=== PATIENT | female | born 1945 | race Caucasian/White ===

== ENCOUNTER 2017-11-13 16:21 | Emergency (ER) | payer MEDICARE, OTHER ==
[~2017-11-13] VITALS: Ht 165.1 cm; Wt 73.9 kg
[~2017-11-13 16:21] MED LIST: BIOTIN2500 MCG PO; CALCIUM 600 +1 EACH PO; IBUPROFEN800 MG PO; KEFLEX500 MG PO; LUTEIN20 MG PO; VITAMIN C500 M1 PO; VITAMIN D5000 UNIT PO
== END 2017-11-13 17:38 | disposition home or self-care (01) ==
LOC: ED 16:21
DX: S22.32XA Fracture of one rib, left side, initial encounter for closed fracture (principal); I10 Essential (primary) hypertension; Z88.1 Allergy status to other antibiotic agents; Z88.7 Allergy status to serum and vaccine; Z88.8 Allergy status to other drugs, medicaments and biological substances; W17.89XA Other fall from one level to another, initial encounter
CPT/HCPCS: 71046; 99283

== ENCOUNTER 2019-11-23 09:59 | Emergency (ER) | payer MEDICARE, OTHER ==
[~2019-11-23] VITALS: Ht 165.1 cm; Wt 73.9 kg
[2019-11-23] MEDS ORDERED: NORCO 5-325 TA1 EACH PO (14:26)
== END 2019-11-23 15:00 | disposition home or self-care (01) ==
LOC: ED 09:59
DX: S63.502A Unspecified sprain of left wrist, initial encounter (principal); S00.81XA Abrasion of other part of head, initial encounter; M25.461 Effusion, right knee; I10 Essential (primary) hypertension; Z88.8 Allergy status to other drugs, medicaments and biological substances; Z88.7 Allergy status to serum and vaccine; Z79.899 Other long term (current) drug therapy; W18.30XA Fall on same level, unspecified, initial encounter
CPT/HCPCS: 70450; 71045; 72125; 73110; 73552; 73560; 73700; 80053; 85025; 96374; 96375; 96376; 99284-25; J2405; J3010

== ENCOUNTER 2021-02-27 07:46 | Day surgery (SDC) | payer MEDICARE, OTHER ==
[~2021-02-27] VITALS: Ht 165.1 cm; Wt 76.2 kg
[~2021-02-27 07:46] MED LIST changes: +ATIVAN1 MG PO; +CELEXA10 MG PO; +MAGNESIUM250 M1 PO; +NORCO 5-325 TA1 EACH PO; +TURMERIC500 M2 PO; +TYLENOL325 MG PO
--- NOTE | 2021-02-27 08:19 | NUR ---
FELL LAST MONTH TRIPPED ON CURB.
--- NOTE | 2021-02-27 09:46 | NUR ---
02/27/21 0946 Ifrah Lawson 0942-PT TO PACU IN LL POSITION. OPENS EYES TO VERBAL AND TACTILE STIMULI. DENIES PAIN. BREATHING EASY AND UNLABORED. SPO2 >95% ON 3 L O2 VIA NC.
--- NOTE | 2021-02-27 10:47 | NUR ---
REQUESTS TO REST LONGER TO BE MORE SURE OF HER WALKING. AT BEDSIDE.
--- NOTE | 2021-02-27 11:11 | NUR ---
HAS EATEN PUDDING DRINKING WATER. FEELS BETTER WILL TRY TO GET DRESSED.
--- NOTE | 2021-02-27 12:30 | NUR ---
1120 STATES SHES READY TO GO HOME. DC INSTRUCTIONS EXPLAINED TO PT AND .
--- NOTE | 2021-02-28 13:24 | OR ---
[facility] [address], [place] [address] Signed DATE OF OPERATION: 02/26/2021 SURGEON: Ghanshyam Mathis MD PREOPERATIVE DIAGNOSES: 1. Personal history of colonic polyps in 2014 at age 68. 2. Diverticulosis. POSTOPERATIVE DIAGNOSES: 1. Moderate sigmoid diverticulosis. 2. Long redundant colon with multiple angulations. 3. A 6 mm polyp at 55 cm (tattoo). 4. Minimal internal hemorrhoids. PROCEDURES: Colonoscopy with hot biopsy and injection of tattoo. ESTIMATED BLOOD LOSS: None. INDICATIONS: Xavier is a 75-year-old female, asked to see me for followup colonoscopy. She has no lower GI complaints. I had performed her initial colonoscopy in 2013 at the age of 68. She had a 7 mm pedunculated adenomatous polyp, high-grade dysplasia at 25 cm. It had been completely destroyed. She also has diverticulosis. She had done well with Versed and fentanyl. She had been asked to return in 5 years. Unfortunately, her seems to have developed some dementia. 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 On top of that, she remains resistant to additional colonoscopies. Although, she told me in the office, she wanted 11 of the 20 years. In the office I had given her a pamphlet on colonoscopy. She understands the nature of the test. There is risk including, but not limited to gas, bloating, crampy abdominal pain, bleeding, perforation requiring surgery, and missed diagnosis. She recalls the need for IV conscious sedation. She had expressed understanding and wished to proceed. DESCRIPTION OF PROCEDURE: Xavier was taken into our endoscopy suite and placed in the left lateral decubitus position. She was given IV sedation with 6 mg of Versed and 100 mcg of fentanyl. A digital rectal exam was performed and this was unremarkable. The adult colonoscope was introduced and advanced all around into the cecum under direct visualization of camera. Electronically Signed By: GHANSHYAM MATHIS MD 02/28/21 0759 Electronically Signed By: GHANSHYAM MATHIS MD 03/01/21 1800 PATIENT NAME: XAVIER SOARES OPERATIVE REPORT DATE OF : 41 REPORT #: [id number] PHYSICIAN: GHANSHYAM MATHIS MD PCP: SHERMAN GEORGE MD REPORT IS CONFIDENTIAL AND NOT TO BE RELEASED WITHOUT AUTHORIZATION [facility] [address], [place] [address] Signed It took quite a bit of time to get through the distal sigmoid colon, where she had an area of angulation. She had another area at the hepatic flexure and some other less angulated areas as well. Fortunately, her prep was quite good. We could easily see the appendiceal orifice and the ileocecal valve. The scope was then slowly withdrawn. We took pictures throughout for photodocumentation. We found a polyp at 55 cm. It was removed with the snare and suctioned through the scope. We left a small tattoo at the base of that polyp. Again, she has a long redundant colon with areas of angulation particularly in the sigmoid colon. Once done in the rectum, it was unremarkable. The scope was then retroflexed and she does have just minimal internal hemorrhoid tissue. After this, the gas was suctioned out, colonoscope removed. Xavier tolerated the procedure quite well. RECOMMENDATIONS: I will see Xavier back in my office in 7 to 14 days to review her results. I suspect she will stay on the 5-year rotation. Ghanshyam Mathis MD ALB/MODL /[id number] cc: Patient Chart MD Sherman Schaffer MD Copies: GHANSHYAM MATHIS MD, MALCOLM MD ~ Electronically Signed By: GHANSHYAM MATHIS MD 02/28/21 0759 Electronically Signed By: GHANSHYAM MATHIS MD 03/01/21 1800 PATIENT NAME: XAVIER SOARES OPERATIVE REPORT DATE OF : 41 REPORT #: [id number] PHYSICIAN: GHANSHYAM MATHIS MD PCP: SHERMAN GEORGE MD REPORT IS CONFIDENTIAL AND NOT TO BE RELEASED WITHOUT AUTHORIZATION
--- NOTE | 2021-02-28 15:30 | PATH ---
[facility] [address] [facility] [place], [place] [address] Signed SPECIMEN(S): A RECTAL POLYP AT 15 CM SPECIMEN(S): B LEFT COLON POLYP AT 55 CM SPECIMEN SOURCE: A. RECTAL POLYP AT 15 CM B. LEFT COLON POLYP AT 55 CM CLINICAL HISTORY: Colonoscopy. History of polyp. Dx: Divertic., polyps. MICROSCOPIC DESCRIPTION: Histologic sections of all submitted blocks are examined by light microscopy. These findings, together with the gross examination, support the pathologic diagnosis. FINAL PATHOLOGIC DIAGNOSIS: A. Rectum, 15 cm, polypectomy: - Hyperplastic polyp. - There is no evidence of dysplasia or malignancy. B. Colon, left, 55 cm, polypectomy: - Tubular adenoma. - There is no evidence of high-grade dysplasia or malignancy. TWK:cml:C2NR GROSS DESCRIPTION: Two specimens are received in two containers, labeled "JG." A. The specimen, labeled "JG, 1," and designated on the requisition "rectal polyp at 15 cm," is received in formalin and consists of one dawn soft tissue fragment that measures 0.4 cm in greatest dimension. The specimen is entirely submitted in cassette (A1). B. The specimen, labeled "JG, 2, left colon 55 cm," is received in formalin and consists of one dawn soft tissue fragment that measures 0.3 cm in greatest dimension. The specimen is entirely submitted in cassette (B1). AT (under the direct supervision of a pathologist) The Gross Description was prepared using a voice recognition system. The report was reviewed for accuracy; however, sound-alike word errors, addition and/or deletions may occur. If there is any question about this report, please contact Client Services. PERFORMING LABORATORY: The technical component was performed by [employer], Amie Fletchermireya Paresh, PATIENT NAME: XAVIER SOARES PATHOLOGY DATE OF : 41 REPORT #: [id number] PHYSICIAN: IVON PATHOLOGY PCP: SY GEORGE MD REPORT IS CONFIDENTIAL AND NOT TO BE RELEASED WITHOUT AUTHORIZATION [facility] [address] [place], [place] [address] [place] [address] (Plate Slitter And Inspector: Diann Valle MD; CLIA# [id number]). Professional interpretation was performed by [facility], [address] [address] (CLIA# [id number]). Diagnostician: Armen Urbina MD Pathologist Electronically Signed 02/28/2021 Copies: ~ PATIENT NAME: XAVIER SOARES PATHOLOGY DATE OF : 41 REPORT #: [id number] PHYSICIAN: IVON PATHOLOGY PCP: ARIEL,SY MD REPORT IS CONFIDENTIAL AND NOT TO BE RELEASED WITHOUT AUTHORIZATION
== END 2021-02-27 11:20 | disposition home or self-care (01) ==
LOC: DS 07:46 → OPS 07:46 → DS 09:00 → OPS 09:00
PROVIDERS: ATTEND Colon & Rectal Surgery
PROC: 0DBG8ZZ Excision of Left Large Intestine, Via Natural or Artificial Opening Endoscopic (ICD-10-PCS; 2021-02-27)
PROC: 3E0H8KZ Introduction of Other Diagnostic Substance into Lower GI, Via Natural or Artificial Opening Endoscopic (ICD-10-PCS; principal; 2021-02-27 09:00)
DX: D12.4 Benign neoplasm of descending colon (principal); K62.1 Rectal polyp; K57.30 Diverticulosis of large intestine without perforation or abscess without bleeding; K64.8 Other hemorrhoids; Q43.8 Other specified congenital malformations of intestine; E78.5 Hyperlipidemia, unspecified; I10 Essential (primary) hypertension
CPT/HCPCS: 99153; G0500; J2250; J3010; J7121

== ENCOUNTER 2022-08-03 15:59 | Observation (INO) | payer MEDICARE, OTHER ==
[~2022-08-03] VITALS: Ht 165.1 cm; Wt 76.5 kg
[2022-08-03] MEDS ORDERED: CITROMA296 ML PO (19:21)
[2022-08-03] MEDS ORDERED: MIRALAX17 GM PO (19:21)
--- NOTE | 2022-08-03 22:00 | NUR ---
pt ARRIVES FROM ER WITH [facility]. AMBULATORY TO RESTROOM FOR VOID WITH BILATERAL WALKING STICKS. pt EMOTIONAL, DISCUSSING WITH DEMENTIA AND STRESS, DEPRESSION ASSOCIATED WITH CARING FOR HIM. RN AND DIECAST MACHINE OPERATOR AT BEDSIDE. IV SITE FLUSHED WNL, IVF INFUSING ORDERED. pt REQUESTING TO MAKE PHONE CALL, PRIVACY PROVIDED AT THIS TIME.
--- NOTE | 2022-08-03 22:15 | NUR ---
PT ADMITTED TO ROOM 109, A/O, SELF TRANSFERED FROM STRETCHER TO BED, USES 2 WALKING STICKS. DID AMBULATE TO BATHROOM, UNSTEADY. VOICES UNHAPPINESS ABOUT BEING ADMITTED, LIFE, MEMORY ISSUES. LIVES WITH IN [place], SAYS SHE HAS A BALANCE ISSUE THUS THE WALKING STICKS. SAYS SHE HASN'T BEEN TAKING CARE OF SELF DUE TO CARING FOR HER .
[2022-08-03 22:58] VITALS: BP 174/84
--- NOTE | 2022-08-03 23:21 | NUR ---
ADMISSION CHECK IN COMPLETE BY [facility]. IVF INFUSING WNL. ADMISSION ASSESSMENT COMPLETE. SOAP SUDS ENEMA COMPLETE. pt RESTING ON LEFT SIDE IN BED. CALL LIGHT IN REACH, VERBALIZES UNDERSTANDING TO USE CALL LIGHT WHEN FINISHED.
--- NOTE | 2022-08-03 23:42 | NUR ---
CALL LIGHT ANSWERED. SBA TO BSC FOR BM WITH SHORT ORDER FRY COOK SINTA TO BSC. CALL LIGHT WITHIN REACH. pt VERBALIZES UNDERSTANDING TO USE CALL LIGHT.
--- NOTE | 2022-08-04 00:06 | NUR ---
PATIENT UP TO BEDSIDE COMMODE. SBA. PATIENT DID HAVE SEVERAL PIECES OF HARD PINGPONG BALL SIZE BM. PATIENT IS BACK IN BED. PATIENT STATED "I ALREADY FELT BETTER". CALL LIGHT WITHIN REACH.
[2022-08-04 02:19] VITALS: BP 137/80
--- NOTE | 2022-08-04 02:21 | NUR ---
pt SLEEPING, AWAKENS TO VOICE. VSS. pt DENIES PAIN. DENIES TOILETING NEEDS. IV SITE FLUSHED WNL, IV ANTIBIOTIC INFUSING ORDERED. pt HAS CALL LIGHT IN REACH.
[2022-08-04 04:38] VITALS: BP 152/90
--- NOTE | 2022-08-04 04:59 | NUR ---
CALL LIGHT ANSWERED. SBA WITH WALKING STICKS TO RESTROOM FOR VOID. INCONTINENCE IN ATTENDS AND UNMEASURED VOID IN TOILET, URINE MISSED HAT. ASSESSMENT COMPLETE. pt DENIES PAIN. BACK IN BED. IVF INFUSING WNL. VSS. CALL LIGHT IN REACH.
--- NOTE | 2022-08-04 06:27 | NUR ---
pt RESTING IN BED AWAKE. NEW BAG IVF INFUSING WNL. pt REQUESTING FOOD, READY TO GO HOME. DISCUSSED PLAN OF CARE. CALL LIGHT IN REACH.
--- NOTE | 2022-08-04 07:20 | NUR ---
REPORT RECEIVED FROM [facility]. PT RESTING IN BED, AWAKE AND ALERT. PT REPORTS 0/10 PAIN AT REST AND 3/10 "TENDERNESS" WITH PALPATION OR ACTIVITY. PT REPORTS SHE DOES NOT WANT TO STAY AT THE HOSPITAL AND WOULD LIKE TO GO HOME. PT UPDATED REGARDING PLAN OF CARE AND STATES SHE IS WILLING TO WAIT. NO ADDITIONAL REQUESTS OR COMPLAINTS. CALL LIGHT WITHIN REACH. BED RAILS UP.
--- NOTE | 2022-08-04 07:30 | NUR ---
MORNING ASSESMENT AND MEDICATION DUE. PT ALERT AND OREINTED TO ALL. PT CONTINUES TO STATE SHE "JUST WANT TO GO HOME." PT RESPORTS UNCHANGED 05/29 "TENDERNESS" TO LLQ OF ABDOMEN WITH PALPATION ONLY. PT DENIES NEED FOR PAIN MEDICATION. PT DENIES NAUSEA. LUNG SOUNDS CLEAR. TELEMETRY MONITORING REMAINS IN PLACE WITH NORMAL SINUS RYTHEM NOTED ON MONITOR, HEART RATE IN THE 70'S. GENERALIZED LLE SWELLING NOTED, SWOLLEN COMPAIRED TO RIGHT. PT REPORTS THIS LEG HAS BEEN SWOLLEN "FOR A WHILE NOW." PT DENIES CALF PAIN. PT STATES HER PCP RECCOMENDED COMPRESSION SOCKS, COMPRESSION STOCKINGS PROVIDED AND PLACED. ABDOMEN SOFT. HYPOACTIVE BOWEL TONES NOTED. PT REPORTS "MAYBE A LITTLE BIT" OF ABDOMINAL DISTENTION. DRY DEPENDS IN PLACE, PT REPORTS BASELINE INCONTINANCE AND DRIBBLING. PT DENIES ADDITIONAL REQUESTS OR COMPLAINTS. CALL LIGHT WITHIN REACH. BED RAILS UP.
[2022-08-04 08:34] VITALS: BP 161/90
--- NOTE | 2022-08-04 08:34 | NUR ---
pt call light answered. pt stated she needed to use restroom. pt assisted to restroom sba w walking sticks. pt back at edge of bed. vitals and is and os complete. pt has no needs. pt stated that she wishes to go home. rn notified. no needs. call light within reach
--- NOTE | 2022-08-04 09:19 | NUR ---
WENT TO ROOM TO DISCISS THE DISCHARGE PLAN OF CARE. THE PATIENT IS ON THE PHONE. PUDDLER PILE DRIVING WILL REURN LATER TODAY.
--- NOTE | 2022-08-04 09:28 | NUR ---
THIS RN TO ROOM TO CHECK ON PT. PT CONTINUES TO DENY PAIN "UNLESS I PUSH ON IT." PT DENIES NAUSEA AND REPORTS HUNGER. PT REPORTS SHE IS PASSING GAS. PT ENCOAURGED TO GET UP TO AMBULATE, DECLINES AT THIS TIME. DR ORLANDO UPDATED ON PT STATUS AND ASSESSMENT. NO ADDITIONAL REQUESTS OR COMPLAINTS. CALL LIGHT WITHIN REACH. BED RAILS UP.
--- NOTE | 2022-08-04 10:46 | NUR ---
THIS RN TO ROOM TO CHECK ON PT. PT SITTING ON EDGE OF BED, VISITING WITH FAMILY. PT DENIES PAIN AND NAUSEA. PT TELLS STORIES OF PAST HOSPITAL VISITS AND REFLECTS ON HER OWN PERSONALITY. PT UPDATED ON PLAN OF CARE. PT REQUESTS FOOD AND FLUID BUT VERBALIEZES UNDERSTANDING OF NPO STATUS. PT DENIES REQUESTS OR COMPLAINTS AT THIS TIME. CALL LIGHT WITHIN REACH.
--- NOTE | 2022-08-04 11:30 | NUR ---
HOURLY ROUNDING: PT CONTINUES TO DENY PAIN AND NAUSEA. PT UP TO AMBULATE IN [place] WITH STAND BY ASSIST AND WALKINGS STICKS X3 LAPS. PT UP TO CHAIR. PT REPORTS FEELING THAT HER ENERGY LEVEL IS "MUCH BETTER" TODAY. PT REPORTS PASSING GAS. NO ADDITIONAL REQUESTS OR COMPLAINTS. CALL LIGHT WITHIN REACH.
--- NOTE | 2022-08-04 11:48 | NUR ---
THE DISCHARGE PLAN IS THAT THE PATIENT WILL GO HOME TO HER HOUSE THAT PATIENT SHARES WITH HER . PATIENT IS RETIRED AND IS ABLE TO DO HER OWN ADLS. PATIENT HAS DEPRESSION AND THINKS IT IS BECAUSE HER HAS EARLY ONSET OF DEMENTIA. PATIENT USES SNOW ZACK POLES X2 TO WALK AND HELP WITH BALANCE. PATIENT HAS GRAB BARS IN THE BATHROOM. PATIENT CAN AFFORD FOOD AND HOUSE PAYMENTS.DEMOGRAPHICS IN THE MED. RECORD ARE CORRECT PER PATIENT. PATIENT STILLS DRIVES HER CAR TO APPOINTMENTS.PATIENT STATES HER HAS NEW ONSET DEMENTIA AND IT IS CAUSING HER DEPRESSION AND MARITAL PROBLEMS. PATIENT PLANS TO FOLLOW UP WITH A LIST THAT PATIENT'S SISTER HAS PROVIDED HER FOR CONSOLING.
--- NOTE | 2022-08-04 12:40 | NUR ---
HOURLY ROUDING: PT UP TO CHAIR, VISTING WITH . PT DENIES PAIN AND NAUSEA. CONTINUES TO REQUEST FOOD/DRINK AND TO GO HOME. PT ALSO STATES SHE WOULD LIKE TO WAIT FOR THE DOCTOR. EDUCATION DONE REGARDING NEED FOR NPO STATUS. PT VERBALIZES UNDERSTANDING. PT DENIES ADDITIONAL REQUESTS OR COMPLAINTS. CALL LIGHT WITHIN REACH.
--- NOTE | 2022-08-04 13:03 | NUR ---
MED REC COMPLETE
[2022-08-04 13:12] VITALS: BP 145/74
--- NOTE | 2022-08-04 13:18 | NUR ---
AFTERNOON ASSESSMENT AND MEDICATION DUE. PT REMAINS UP TO CHAIR. VISITING WITH . PT ALLERT AND OREINTED TO ALL, CONTINUES TO BE IRRITABLE, REPORTS "I'M ALWAYS IRRITABLE, THAT'S JUST WHO I AM." PT REPORTS 3/10 CRAMPING PAIN IN ABDOMEN THAT SHE ATTRBUTES TO "BECUASE I'M HUNGRY AND YOU WON'T LET ME EAT AND ALL I CAN DO IS THINK ABOUT FOOD." HEAT PACK PROVIDED WHICH PT STATES HELPS. PT DECLIENS PAIN MEDICATION. LUNG SOUNDS CLEAR. HEAR TONES REGULAR, SINUS RYTHEM NOTED ON MONITOR WITH RATE IN THE 70'S. NOTED THAT HEART RATE INCREASES TO 100-110 WITH AMBULATION, MAINTAINS SINUS RYTHEM. +1 PITTING EDMEA NOTED TO BLE. NAM HOSE REMAINS IN PLACE. PT DECLINES LEG ELEVATION. ABDOMEN REMAINS SOFT. TENDER WITH PALPATION ON LEFT SIDE. ACTIVE BOWEL TONES NOTED. PT CONTINUES TO REPORT SHE IS PASSING GAS. DRIBBLING AND INCONTINACE CONTINUES. DRY DEPENDS IN PLACE. NO ADDITONAL REQUESTS OR COMPLAINTS. CALL LIGHT TOMASZ GARCIA.
--- NOTE | 2022-08-04 14:32 | NUR ---
DR ORLANDO CALLED AND STATES TO GIVE PT A SOAP SUDS ENEMA AND ADVANCE TO CLEAR LIQUID DIET. ORDERS ENETERD, REPEAT BACK PERFORMED. PT BACK TO BED WITH STAND BY ASSIST AND WALKIGN STICKS. ~20OZ OF SOAP SUDS ENEMA INFUSED BEFORE WATER STARTEDS LEAKING OUT OF COLON AND PT STATES SHE IS NO LONGER ABLE TO HOLD MORE WATER IN. PT NOW RESTING ON LEFT SIDE IN BED, ENCOURAGED TO TRY TO HOLD FLUID IN FOR ~20-30 MINUTES. COMODE AT BEDSIDE. CALL LIGHT WITHIN REACH.
--- NOTE | 2022-08-04 15:24 | NUR ---
PT UP TO BEDSIDE COMODE WITH SCOOP OPERATOR. SCOOP OPERATOR REPORTS LARGE BROWN LIQUID BOWEL MOVEMENT, SUSPECT THAT THIS IS MOSTLY THE ENEMA FLUID. THIS RN DID NOT VISULIZE BM. PT REPORTS CRAMPING TO ABDOMEN CONTINUES. YOUSUF CARE DONE PER PT. DEPENDS CHANGED. PT BACK TO BED TO REST. PT CONTINUES TO STATE SHE IS "JUST DONE" AND "IRRITABLE." PT DENIES ADDITIONAL REQUESTS OR COMPLAINTS. CALL LIGHT WITHIN REACH. BED RAILS UP. PTS AT BEDSIDE.
--- NOTE | 2022-08-04 16:09 | NUR ---
PT VERY UPSET AND STATING SHE WOULD LIKE TO LEAVE. YUNG, CHARGE NURSE TO BEDSIDE. DR. ORLANDO CALLED AND TO BEDSIDE FOR ROUNDS. DR ORLANDO UPDATED ON PT ASSESSMENTS AND STATUS. RECTAL EXAM PERFOREMD BY DR. ORLANDO. PT CALMS AND AGREES TO PLAN OF CARE. PT STATES HER QUESTIONS HAVE BEEN ANSWERED. NEW ORDERS ENTERED, CHECKED AT BEDSIDE BY DR. ORLANDO. PT RESTING ON LEFT SIDE. NO ADDITONAL REQUESTS OR COMPLAINTS. CALL LIGHT WITHIN REACH. BED RAILS UP.
--- NOTE | 2022-08-04 17:25 | NUR ---
MEDICATIONS ARRIVED FROM PHARAM. PT SITTING ON EDGE OF BED. CONTINUES TO BE IRRITABLE BUT STATES "I'M BETTER NOW." PT DENIES PAIN AND NAUSEA. MEDICAITONS GIVEN. PT ADVISED TO TAKE BOWEL PREP MEDICAITONS SLOWLY AND TO STOP IF SHE BEGINS TO FEEL NAUSEATED. PT DENIES ADDITIONAL REQUESTS OR COMPLAINTS. CALL LIGHT WITHIN REACH. BED RAILS UP.
--- NOTE | 2022-08-04 17:39 | NUR ---
PT HERE FOR CONSTIPATION. PT UP WITH STAND BY ASSIST AND WALKING STICKES TO AMBULATE IN VELA AND UP TO RESTROOM AND CHAIR THIS SHIFT. PT ADVANED TO CLEAR LIQUID DIET. ENEMA GIVEN. BOWEL TONES ACTIVE. ADDITIONAL ABDOMINAL X-RAY PERFORMED. MINIMAL RESULTS FROM ENEMA. BOWEL PREP STARTED AND MIRALAX GIVEN. ABDOMEN SOFT AND NON TENDER. PT REMAINS ON TELEMETRY MONITORING WITH NORMAL SINUS RYTHEM IN THE 70'S THIS SHIFT, MILD TACHYCARDIA WITH AMBULATION. PT IRRITABLE THROUGHOUT SHIFT. PT VOIDIGN QUANITTY SUFFICIENT, INCONTINANT AT TIMES. PT USESE CALL LIGHT AND MAKES NEEDS KNOWN.
--- NOTE | 2022-08-04 17:46 | NUR ---
PT CALL LIGHT ON. PT REQUESTS ASSITANCE UP TO THE RESTROOM. STAND BY ASSIST FOR LINE AND TUBE MANAGEMENT UP TO RESTROOM. PT VOIDS WIHTOUT ISSUE. DEPENDS SATURATED. YOUSUF CARE PER PT. DEPENDS CHANGED. STAND BY ASSIST BACK TO EDGE OF BED. PT SITTING ON EDGE OF BED, DRINKING DINNER FLUIDS. PT HAS NOT YET STARTED BOWEL PREP. PT ENCORUAGED TO BEGIN DRINKING BOWEL PREP. PT VERBALIZES UNDERSTANDING. NO ADDITIONAL REQUESTS OR COMPLAINTS. CALL LIGHT WITHIN REACH. BED RAILS UP.
[2022-08-04 18:08] VITALS: BP 145/68
--- NOTE | 2022-08-04 18:29 | NUR ---
THIS RN TO ROOM TO CHECK ON PT. PT RESTING IN BED AND APPOLOGIZING FOR HER IRRITABILITY EARLIER THIS SHIFT. PT DENIES PAIN AND NAUSEA AND REPORTS THAT SHE IS "FEELING BETTER." PT MILDY FORGETFUL TELLING STORIES SHE HAS ALREADY TOLD MULTIPLE TIMES AND MAKING COMMENTS STATING "DID I ALREADY SAY THAT?" PT DENIES ADDITIONAL REQUESTS OR COMPLAINTS. CALL LIGHT WITHIN REACH. BED RAILS UP.
--- NOTE | 2022-08-04 19:15 | NUR ---
REPORT RECEIVED FROM [facility]. pt RESTING IN BED AWAKE. DENIES NEEDS AT THIS TIME. IVF INFUSING WNL. CALL LIGHT IN REACH.
--- NOTE | 2022-08-04 19:30 | NUR ---
ANSWERED CALL LIGHT. SBA TO BATHROOM AND BACK TO BED. NO OTHER NEEDS AT THIS TIME.
--- NOTE | 2022-08-04 19:40 | NUR ---
MD ON FLOOR. VERBAL ORDER TO DC TELE. VERBAL ORDERS RECEIVED AND REPEATED BACK FOR PRN PAIN MEDICATIONS.
[2022-08-04 21:48] VITALS: BP 143/92
--- NOTE | 2022-08-04 23:01 | NUR ---
IV PUMP ALARMING, DISTAL OCCLUSION. TUBING STRAIGHTENED. IVF INFUSING WNL ORDERED. CALL LIGHT IN REACH.
--- NOTE | 2022-08-04 23:45 | NUR ---
PATIENT RESTING COMFORTABLY WITH EYES CLOSED. SAFETY MAINTAINED. PATIENT REFUSED ANYTHING AT THIS TIME. CALL LIGHT WITHIN REACH. WILL CONTINUE TO MONITOR.
--- NOTE | 2022-08-05 00:33 | NUR ---
CALL LIGHT ANSWERED. pt DIZZY UPON SITTING AT SIDE OF BED. SBA TO BSC FOR VOID. pt PASSING GAS. STATES UNABLE TO FINISH BOWEL PREP DUE TO NAUSEA. DENIES NAUSEA AT THIS TIME, BUT STATES "I DON'T WANT TO PUSH IT". INCONTINENT IN ATTENDS, ATTENDS AND GOWN CHANGED. CALL LIGHT NEXT TO pt.
--- NOTE | 2022-08-05 00:49 | NUR ---
PATIENT RESTING IN BED. PT IS FEELING NAUSEOUS BUT REFUSES ANY ANTINAUSEA MEDICATION. VOMITE BAG GIVEN TO PT. CALL LIGHT WITHIN REACH. WILL CONTINUE TO MONITOR.
--- NOTE | 2022-08-05 05:54 | NUR ---
[facility] DOWN TIME. SEE PAPER CHATING FOR ASSESSMENT COMPLETED AT 0230 AND VITALS COMPLETED AT 0540.
--- NOTE | 2022-08-05 05:56 | NUR ---
PATIENT RESTED SOME DURING THE SHIFT. PT UP TO BSC FREQUENTLY WITH NO BOWEL MOVEMENTS NOTED. PT ONLY VOIDED. PT WAS NOT ABLE TO COMPLETE DRINKING BOWEL PREP THEY WERE NAUSEOUS. PT CONTINUES TO STATE THAT THEY HAVE ABDOMINAL PAIN BUT THAT IT IS NOT WORSE BUT JUST CONSISTENT. IVF INFUSING PER ORDER. SAFETY PRECAUTIONS MAINTAINED. VS STABLE. CALL LIGHT WIHTIN REACH. WILL CONTINUE TO MONITOR.
--- NOTE | 2022-08-05 07:29 | NUR ---
RECIEVED SHIFT REPORT. PT SITTING ON THE SIDE OF THE BED TALKING ON THE PHONE. CALL LIGHT IN REACH.
[2022-08-05] MEDS ORDERED: MIRALAX17 GM PO (10:07)
[2022-08-05] MEDS ORDERED: ACETAMINOPHEN500 MG PO (10:07)
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
[2022-08-05 10:16] VITALS: BP 149/85
--- NOTE | 2022-08-05 10:20 | NUR ---
MORNING ASSESSMENT COMPLETE. PT SITTING ON THE SIDE OF THE BED. DENIES PAIN AND NAUSEA. BOWEL TONES ACTIVE, NONTENDER. PT EAGER TO GO HOME. CALL LIGHT IN REACH.
--- NOTE | 2022-08-05 11:58 | NUR ---
PT ALERT, ORIENTED AND SITTING ON SIDE OF BED. M/S STAFF IN GETTING RM READY TO DC. PT SAID SHE IS READY TO GO, FEELING BETTER. PLANS TO BUY A HORSE, LIVE OUT SOME THINGS SHE FEELS SHE HAS BEEN DENIED OF. PT VERY EXPRESSIVE, SAID SHE HAS HER OWN LINE OF COMMUNICATION WITH GOD AND SHE USES OFTEN. GAVE BLESSING
== END 2022-08-05 11:38 | disposition home or self-care (01) ==
LOC: ED 15:59 → MS 16:01
PROVIDERS: ADMIT Surgery; ATTEND Surgery
DX: K56.41 Fecal impaction (principal); I10 Essential (primary) hypertension; Z88.1 Allergy status to other antibiotic agents; Z88.7 Allergy status to serum and vaccine; Z88.8 Allergy status to other drugs, medicaments and biological substances; Z79.899 Other long term (current) drug therapy
CPT/HCPCS: 36415; 74018; 74177; 76856; 80053; 81001; 85025; J0690; J0694; J1885; J2405; J7121; Q9967

== ENCOUNTER 2022-08-11 22:19 | Inpatient (IN) | payer MEDICARE, OTHER ==
[~2022-08-11] VITALS: Ht 165.1 cm; Wt 113.0 kg
[~2022-08-11 22:19] MED LIST changes: +ACETAMINOPHEN500 MG PO; +CITROMA296 ML PO; +MIRALAX17 GM PO
--- OUTSIDE RECORDS SUMMARY | 2022-08-11 22:27 | XMS ---
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 Raina has no Care Guidelines for this patient. Alvaro VISIT COUNT (12 MO[address] [facility] T[facility] NOTE: Visits indicate total known visits. ED/C VISIT TRACKING (12 MO.) [facility]2022 [facility] Emergency COMPLAINT: - CONSTIPATION 08/03/2022 16:00 [facility] [place] TYPE: Emergency COMPLAINT: - CONSTIPATION INPATIENT VISIT TRACKING (12 MO.) 08/03/2022 16:01 [facility] [place] TYPE: Observation COMPLAINT: - STERCOL COLITIS DIAGNOSES: - Allergy status to other antibiotic agents - Allergy status to other drugs, medicaments and biological substances - Allergy status to serum and vaccine - Essential (primary) hypertension - Fecal impaction - Fecal impaction - Other fdc (current) drug therapy - Unspecified abdominal pain [email or web address]
[2022-08-12] VITALS (54 sets, daily range): BP systolic 46–219; BP diastolic 28–138
--- NOTE | 2022-08-12 02:00 | NUR ---
RECEIVED REPORT FROM ER FACILITIES SUPERVISOR, WAS BROUGHT TO PT'S ROOM, REPORT WAS GIVEN AND ALL QUESTIONS AND CONCERNS WERE ADDRESSED AT THIS TIME, PT HAD JUST BEEN TAKEN TO THE OR AND MD STATED THAT THE SURGERY WOULD LIKELY TAKE 3-4 HRS, WILL WAIT FOR ANY UPDATES ON SURGERY.
--- NOTE | 2022-08-12 04:11 | NUR ---
OR UPDATE: PT HAS 1 PIV, BP UNSTABLE, UNSUCCESSFUL ATTEMPTS TO PLACE A CENTRAL LINE, PRESSORS NEEDED, PT SHOULD BE OUT OF SURGERY SHORTLY, IS STILL IN ROOM AND WAS UPDATED.
--- NOTE | 2022-08-12 06:37 | NUR ---
PT SBP IN THE 80'S, TRIED TO CALL DARION BUT IS SCRUBBED IN IN OR AND CURRENTLY UNAVAILABLE, CALLED DR ROYAL TO SEE IF NOREPI SHOULD BE RESTARTED, STATED TO JUST KEEP MAPS ABOVE 65, CONCERNED ABOUT URINARY OUTPUT; WILL CONTINUE TO MONITOR AND NOTIFY MD WITH ANY CHANGES IN PT STATUS
--- NOTE | 2022-08-12 07:24 | HP ---
[facility] [address], [place] [address] Signed ADMISSION DATE: 08/12/2022 REASON FOR ADMISSION: Generalized peritonitis, acute renal failure, and free air. HISTORY: This 77-year-old white woman is known to me having recently been discharged from the hospital on August 05, 2022. She had been admitted by me on August 04, 2022, with longstanding and progressive chronic constipation despite a bowel program generally including flaxseed. She was seen previously with complaints of left lower abdominal pain. CT scan showed considerable amount of stool throughout the colon, circumferential thickening of the sigmoid and upper rectum consistent with possible stercoral colitis. She was admitted, given intravenous antibiotics at that time and enemas from below and partial fecal disimpaction which allowed for clearance of her symptoms. She returned to a usual and good bowel function. She had undergone a colonoscopy in February of 2021, which showed diverticulosis. She presents to the emergency room in the corn shucker hours today and evaluated by Dr. Dorman with generalized peritonitis. She was said to have been awakened from sleep with severe mid abdominal pain worse with movement. She was brought to the emergency room and is accompanied by her . Evaluation by Dr. Dorman included a CBC which showed a normal white count of 5.2 with platelets of 197,000, a low potassium 2.8, creatinine elevated at 3.22. Urinalysis which was somewhat abnormal and a CT scan of the abdomen and pelvis was performed, which showed generalized free air. Clinical examination showed a tender abdomen and markedly distended abdomen. Currently, the patient is poorly communicative. Unasyn antibiotic has been initiated. IV fluid resuscitation undertaken and emergency surgical consultation requested. REVIEW OF SYSTEMS: She is poorly communicative, but does admit to generalized abdominal pain. She denies any chest pain. PHYSICAL EXAMINATION: GENERAL: This is a toxic-appearing elderly woman. HEENT: Mucous membranes are dry. NECK: Trachea is midline. CHEST: Shows no evidence of tachypnea. Electronically Signed By: JUAREZ ORLANDO MD 08/12/22 0724 PATIENT NAME: XAVIER SOARES HISTORY AND PHYSICAL DATE OF : 41 REPORT #: [id number] PHYSICIAN: JUAREZ ORLANDO MD PCP: SHERMAN JENKINS MD REPORT IS CONFIDENTIAL AND NOT TO BE RELEASED WITHOUT AUTHORIZATION [facility] [address], [place] [address] Signed HEART: Regular, but tachycardic at 110. ABDOMEN: Quite markedly distended far more than previously and with tenderness throughout, most dominantly in the left lower quadrant. EXTREMITIES: Show no clubbing, cyanosis, or edema. LABORATORY STUDIES: As previously noted. CT scan was reviewed confirming free intraperitoneal air, a fair amount of stool within the colon once again and notably elevated creatinine 3.22. ASSESSMENT: The patient has perforated viscus, most likely sigmoid colon. She has battled chronic constipation for quite some time and her most recent admission to the hospital confirmed significant diverticulosis as well as stool, which was ultimately cleared by manual disimpaction and enemas. Although, she was doing quite well and back to a bowel regimen including MiraLAX and fiber supplement, she has quite obviously had perforation most likely of the diverticulum. Although there is some consideration for laparoscopy with peritoneal lavage and placement of drain and so forth, given her significant distention and a very problematic colon, a more likely scenario in her case would be laparotomy, sigmoid resection, end colostomy, and later takedown of colostomy if feasible. I discussed this with the patient, who seems to understand and certainly discussed with her . Both the patient and her signed the consent form to include a laparotomy repair or repair of perforated bowel and probable colostomy. They understand the risk of bleeding, infection, and other complications related to her underlying problem and wished to proceed. Though it is corn shucker, however, at approximately 1:00 am, I do not believe that delay of operation would be beneficial and we will proceed directly to operation as soon as an operative team can be assembled. MD TIFFANIE Cormier/MAXXL /[id number] cc: Sherman Jenkins MD Electronically Signed By: JUAREZ ORLANDO MD 08/12/22 0724 PATIENT NAME: XAVIER SOARES HISTORY AND PHYSICAL DATE OF : 41 REPORT #: [id number] PHYSICIAN: JUAREZ ORLANDO MD PCP: SHERMAN JENKINS MD REPORT IS CONFIDENTIAL AND NOT TO BE RELEASED WITHOUT AUTHORIZATION [address] [address] Signed Marilyn Dorman MD Copies: SHERMAN JENKINS MD, KELLY MD ~ Electronically Signed By: JUAREZ ORLANDO MD 08/12/22 0724 PATIENT NAME: XAVIER SOARES HISTORY AND PHYSICAL DATE OF : 41 REPORT #: [id number] PHYSICIAN: JUAREZ ORLANDO MD PCP: SHERMAN JENKINS MD REPORT IS CONFIDENTIAL AND NOT TO BE RELEASED WITHOUT AUTHORIZATION
--- NOTE | 2022-08-12 07:30 | NUR ---
REPORT RECIEVED FROM TESTING ENGINEER RN. PATIENT RESTING IN BED ON VENTILATOR. PATIENTS IN AT THE BEDSIDE. PATIENT NOT CURRENTLY ON ANY SEDATION OR PAIN MEDICATION AND PATIENT RESTING ON THE VENTILATOR WITH A RESP RATE OF 16.
--- NOTE | 2022-08-12 07:33 | NUR ---
BP MAP STAYING ABOVE 65, VENT COMPLIANT, SPOKE TO IN ROOM, REPORT WAS GIVEN, NOTIFIED ONCOMING NURSE THAT ONLY ONE PIV PRESENT, MULTIPLE ATTEMPTS WERE MADE, MD IS AWARE, WILL CONTINUE TO MONITOR.
--- NOTE | 2022-08-12 09:30 | NUR ---
THIS RN AND STUDENT RN IN TO DO AM ASSESSMENT AND CARES. PATIENT REPOSITIONED. PATIENT IS COOL AND CLAMMY TO TOUCH. PATIENT HAS POOR CIRCULATION THROUGHOUT. PULSES ARE WEAK AND THREADY. PATIENTS BLE ARE COOL, DUSKY, AND 6 SECOND REFILL. PATIENT ABD IS DISTENDED. MINIMAL DRAINAGE ON PATIENTS MIDLINE DRESSING. PER MD ORLANDO STAFF CAN PUT G-TUBE TO GRAVITY DRAIN. PATIENT CONTINUES TO HAVE POOR URINE OUTPUT. RT IN TO DO ABG THIS AM AND IS HAVING DIFFICULTY GETTING ABG. PATIENT REMAINS ON VENTILATOR WITH SETTINGS UNCHANGED. PATIENT RR IS 16 AND REMAINS RASS -3 TO -4. PATIENTS SIGNIFICANT OTHER IN AND UPDATED ON PLAN OF CARE.
--- NOTE | 2022-08-12 10:52 | NUR ---
UPDATED DARION OF PATIENTS SYSTOLIC BP OF 75-85 AND A MAP OF 60-65. PATIENT IS STARTING TO WAKE UP AND RR OF 30. PATIENT APPEARS UNCOMFORTABLE. PATIENT CAN OPEN EYES. MD WANTS TO CONTINUE TO HOLD OFF ON PRESSORS BEING STARTED UNLESS PATIENTS MAP IS LESS THAN 60. PATIENTS URINE OUTPUT IS ABOUT 5MLS/HR. PATIENT IS COLD AND CLAMMY TO THE TOUCH. WARM BLANKET APPLIED.
--- NOTE | 2022-08-12 11:25 | NUR ---
MD ORLANDO NOTIFIED OF CONTINUED LOW BLOOD PRESSURES. PATIENTS SYSTOLIC BLOOD PRESSURE 67/51 MAP 59. PER MD START PATIENT ON LEVOPHED WITH A MAX OF 5MCG/MIN TO KEEP MAP GREATHER THAN 60 AND IDEAL 90 SYSTOLIC BLOOD PRESSURE. NOTIFIED THAT THIS RN STRTED THE 1L PRN BOLUS THAT MD ORDERED NEEDED FOR LOW URINE OUTPUT AND LOW BLOOD PRESSURE. PATIENTS CAP REFILL IS 6 SECONDS AND DIFFICULTY PICKING UP SPO2 ON MONITOR. PATIENT IS COOL AND CLAMMY. RT IN TO REPOSITION SPO2 MONITOR WITH DIFFERENT DEVICES. SPO2 NOW READING 96%.
--- NOTE | 2022-08-12 12:00 | NUR ---
DRAINS EMPTIED. G-TUBE PLACED TO GRAVITY DRAIN PER MD ORLANDO.
--- NOTE | 2022-08-12 12:54 | NUR ---
PT ON VENT AT THIS MOMENT, CCU STAFF ATTENDING TO PT. NO FAMILY IN RM. WILL CHECJ BACK
--- NOTE | 2022-08-12 13:15 | NUR ---
dr dunaway at bedside, team shilo lerner, compressed yeast supervisor kyle garcia, this rn, and rn student in room to review pt status norepi cont. at 5 mcg. vent unchanged, resp 28, no drainage from g tube - og clampped to allow drainage. maps above 60, mall urine out in ward to gravity - pt rass = -5
--- NOTE | 2022-08-12 13:35 | NUR ---
THIS RN PASSED OVER CARE TO SARITA AMADO. THIS RN CALLED AND UPDATED MD THAT PATIENTS LACTIC CAME BACK 5. UPDATED ON PATIENTS SEDATION LEVELS WITH NEW MEDICATIONS ON BOARD. PICC LINE TEAM NOW UNABLE TO PLACE LINE UNTIL TOMORROW. PATIENT ON 5 OF LEVOPHED WITH BP 70'S SYSTOLIC WITH A MAP OF 65. CONTINUED LOW URINE OUTPUT. SPOKE WITH MD ABOUT PATIENTS CAP REFILL AND PERFUSSION. PATIENT IS ALSO MORE DISTENDED. PER MD PATIENT CAN HAVE G-TUBE TO GRAVITY DRAIN AND NG TUBE TO LOW INT. SUCTION. MD WILL BE IN TO SEE PATIENT THIS AFTERNOON. NO NEW ORDERS AT THIS TIME. SARITA AMADO WILL RESUME CARE OF PATIENT.
--- NOTE | 2022-08-12 14:11 | NUR ---
YESI BED ORDERED AT THIS TIME.
--- NOTE | 2022-08-12 14:22 | NUR ---
CONNECTED WITH PTS' PHILIPPE AND FAMILY PRESENT.PHILIPPE HAVING DIFFICULTY SEEING PT LIKE THIS. GAVE COMFORT AND SUPPORT. PT ON VENT, SEDATED AT THIS TIME. PROVIDED P.QUILT AND HAD PRAYER WITH FAMILY. WILL CONTINUE TO FOLLOW
--- NOTE | 2022-08-12 14:40 | NUR ---
call to cell of dr pate for temp 99.6, and low bp 67/ message left, and abg results, christopher noted on rythym, dr mata notified of abg results as well.
--- NOTE | 2022-08-12 14:56 | NUR ---
spoke with ruby at [facility] office message of 69 bs, she will notify him to call for orders.
--- NOTE | 2022-08-12 15:10 | NUR ---
call to dr pate about 69 bs - 1 amp d50 given r ac with janie in room. pt bp 77/51 map 58, diaphoretic and clammy, cool. lab here to draw.
--- NOTE | 2022-08-12 15:17 | NUR ---
BS NOW 129 FINGERSTICK AND LAB IN ROOM FOR OTHER DRAWS. PT 99/58 MAP 70 HR 118, RESP RATE 31, FIO2 40%, TV 420 SET.
--- NOTE | 2022-08-12 15:30 | NUR ---
UNABLE TO SPEAK TO THE PATIENT. THE PATIENT IS ON THE VENT AND SEDATED. PATIENT HAD EMERGENCY SURGERY LAST NIGHT FOR A PERFORATED BOWEL AND WAS IN THE HOSPITAL A WEEK AGO FOR A FECAL IMPACTION. PATIENT'S SON JANNET SOARES SPOKE TO MGMT ANALYST. THE PATIENT'S SON STATES THAT HIS MOTHER IS VERY STRONG.PER SON THE PATIENT HAS NOT FELT WELL FOR THE LAST 10 DAYS. PATIENT NORMALLY CAN DO HER OWN ADLS. PATIENT LIVES IN A SMALL HOUSE AND HAS NO PROBLEM AFFORDING FOOD. PATIENT'S SON STATES HIS MOTHER USES A WALKING STICK NEEDED FOR BALANCE. PER SON PATIENT HAS BEEN STRESSED OUT LATELY OVER MARITAL ISSUES.
--- NOTE | 2022-08-12 15:45 | NUR ---
PATIENT RESTING IN BED, EYES CLOSED AND VENTILATOR IN PLACE. FAMILY AT BEDSIDE AT THIS TIME. SHOWER CAP AND WARM WIPES USED ON PATIENT. OSTOMY EMPTIED WITH 50ML OUT. SARITA AMADO AT BEDSIDE WELL.
--- NOTE | 2022-08-12 15:45 | NUR ---
new order from dr pate for iv tylenol for temp of 110.6 f, started iv, pt -5 rass, pupils fixed non reactive, skin cool and clammy, mottled appearing skin at legs. no urine out. pt repositioned in bed - heels floated.
--- NOTE | 2022-08-12 16:40 | NUR ---
PATIENT TRANSFERRED TO YESI BED WITH 4PA AND R/T MAINTAINING THE VENT TUBE. VITALS REMAINED UNCHANGED DURING ACTIVITY. PATIENT WAS INCONTINENT OF LIQUID STOOL WELL 200 LIQUID STOOL FROM OSTOMY. VERY LITTLE URINE OUTPUT, RN AT BEDSIDE AND AWARE.
--- NOTE | 2022-08-12 16:40 | NUR ---
rn assisted in slide trsf of pt to arjo bed after jeannie care and linen changed completed 5 person assist including RT to manage vent. pt had stool from rectum and was inct. lg amt of liq. bm - pt non responsive during cares, skin on backside wnl no open areas all intact, oral care done, intact - ett 22 at teeth and repositioned.
--- NOTE | 2022-08-12 17:00 | NUR ---
this rn assist dr pate with left 3 lumen central line placed at bedside by . pt unresponsive RASS -5, continues on vent dr updated of all i/o, pressure trends, BS recovery and vitals with norepi remaining at 5 as ordered. cxr cleared and left central line dated dressing. good blood return on all 3 ports, transfered norepi to central line as well as d5LR @125.
--- NOTE | 2022-08-12 17:10 | NUR ---
bedside report given to Flor RN along with supervisor plastering and Dr. Ryan. . pt family with pastoral care in to see pt at bedside shortly after - they visited and then left for home for the night.
--- NOTE | 2022-08-12 17:30 | NUR ---
verbal order per dr pate for CVP line, set up by this rn and attempting to zero line - pressures are trending low and rn consulted with supervisor lens generating and Elsi RN to trouble shoot monitor - pt bp low and concerning, pt rolled and turned to place pads to chest, dr pate called 1805 about low pressures and max dose of levophed - new verbal order to increase drip over 5 mcg to keep systolic up and pt had witnessed alarm on monitor reading asystole with supervisor lens generating, RN and this RN present. no pulse found on assessment and code called. compressions started and this rn brought in code cart for code.
--- NOTE | 2022-08-12 18:08 | NUR ---
continue: Tracy harrison called at 1808, see documentation - dr ivy in to assist as well as ER nurse Lucille, pharmacy Cricket, RT Karol Hernandez RN to record and other responding staff. Including Dr. Ryan - this RN updated the team on pt status using the timeline on the wall of room and history of pt admission - see EMAR and code strips. pt had ROSC at 1816 and team debriefed in room brainstorming next steps. Dr. Pate arrived after ROSC and assessed - then this RN assisted DR. Pate to set up and he placed ART line to left wrist - pt unresponsive - only change noted was that the new g tube was now draining dark bile to gravity and abd was less ridgid on palpation. pt had cxr, ekg, and labs ordered during code and rio/esperanza both reviewed. bs checked 183 94 wnl d5lr at 125 resumes. during code norepi was stopped and was resumed as pressures decreaseeat 1837 5 mcg was started and dr apte was in room. 183 1 litre ns bolus completd from tracy, and 1851 norepi was increased per vo to 7.[address] pate. 1900 increased again to 10 mcg. verbal order. 1910 LR bolus started verbal order pt restraints were re adjusted around new art line and re applied for safety. no urine reported to and bp continue to drop. see vitals trend.
--- NOTE | 2022-08-12 20:14 | NUR ---
ASSUMED CARE OF THE PATIENT. UPON ARRIVAL TO THE ROOM PATIENT HAD A BP SYSTOLIC IN THE 60S AND MAP IN THE 40S. DR. ROYAL IS AT BEDSIDE AND HAS STATED THAT SHE WILL BE TREATING THE PATIENT. SHE HAS GIVEN ORDERS VERBALLY TO KEEP MAP AT A GOAL RANGE OF 60-65. SHE HAS MADE IT VERY CLEAR THAT SHE DOES NOT WANT THE PATIENT TO BE ON ANYMORE THAN 15MCG OF LEVO, AND HAS STATED THAT IT IS OK TO BOLUS 500CC OF FLUID BEFORE CALLING TO GO UP ON THE LEVOPHED. LABS WILL BE DRAWN IN 6 HOURS AND ONCE DURING AM. \ PATIENT IS ALSO ANURIC, BICARB DRIP HAS BEEN STARTED. PATIENT IS NOT ON ANY SEDATION. SHE IS UNRESPONSIVE AND PUPILS ARE FIXED. DR. ROYAL IS AWARE OF ALL OF ABOVE REPORTED
--- NOTE | 2022-08-12 20:40 | NUR ---
I WAS CALLED IN WHEN THE PT CODED. AND SON WERE PRESENT. I VISITED WITH THE FAMILY UNTIL PT WAS STABLE ENOUGH FOR THEM TO BE WITH HER. PRAYED WITH FAMILY.
--- NOTE | 2022-08-12 22:17 | NUR ---
PATIENT IS NOW AT LEVO OF 10. ART LINE PRESSURE IS 97/59 MAP IS 70. WILL CONT. TO TITRATE ACCORDING TO DR. ROYAL VERBAL ORDER. GENNY WANT BICARB DRIP FOR 1 L ONLY. STATES TO SET CVP UP BUT WE ARE JUST MONITORING NUMBER. NO PARAMETERS.
[2022-08-13] VITALS (62 sets, daily range): BP systolic 71–127; BP diastolic 40–67
--- NOTE | 2022-08-13 00:01 | EKG ---
[facility] [address] [facility] [place] [address] Signed Unusual P axis, possible ectopic atrial tachycardia with undetermined rhythm irregularity Pulmonary disease pattern Left anterior fascicular block Nonspecific ST and T wave abnormality Abnormal ECG No previous ECGs available Confirmed by RICKIE ROYAL MD ([id number]) on 08/13/2022 12:01:19 AM Electronically Signed By: RICKIE ROYAL MD 08/13/22 0001 PATIENT NAME: XAVIER SOARES Electrocardiogram DATE OF : 41 PHYSICIAN: RICKIE ROYAL MD REPORT #: [id number] REPORT IS CONFIDENTIAL AND NOT TO BE RELEASED WITHOUT AUTHORIZATION
--- NOTE | 2022-08-13 00:16 | NUR ---
REPORTED CRITICAL TROPONIN OF [address] ROYAL. NO FURTHER ORDERS AT THIS TIME.
--- NOTE | 2022-08-13 02:00 | NUR ---
PATIENT WAS GIVEN A BED BATH WITH FULL LINEN CHANGE. MEPILEX PUT IN PLACE. LINES REZEROED. PATIENT REMAINED STABLE.
--- NOTE | 2022-08-13 04:33 | NUR ---
PATIENT IS NOW AT 9 OF LEVO. RT IS AT BEDSIDE.
--- NOTE | 2022-08-13 05:54 | NUR ---
TROPONIN OF 221.4, LACTIC OF 7.8, WBC OF 32.[address] ROYAL DUE TO BEING REPORTED BY THE LAB CRITICAL VALUES. NO FURTHER ORDERS AT THIS TIME
--- NOTE | 2022-08-13 07:30 | NUR ---
DR ORLANDO HERE, REVIEW OF LABS - REPORT FROM CRUZ AMADO BRICK BAKER TO AND THIS RN, LEVOPED AT 9 MCG. PT RASS-5 VENT SETTINGS FIO2 60%, MARKED FEMORAL PULSES,
--- NOTE | 2022-08-13 07:39 | NUR ---
DR. ORLANDO IS AT BEDSIDE. INFORMED OF ALL LABS, UPDATED REGARDING STATUS CHANGES OVERNIGHT. ASKED FOR BICARB DRIP TO BE REORDERED FOR BICARB OF 12.5. NO FURTHER ORDERS.
--- NOTE | 2022-08-13 07:45 | NUR ---
assited pt with cxr in room, 100 ml emptied from ogt to liws, dark bile noted, 0815 dr mata here 375 ml dark brown liq stool emptied from ostomy bag stoma wnl, 15 ml urine in bag. advised to place cpr pads on this pt and it was done profolactically. pt is having irregular tachy heart rate with bi/trigemeny, pvc noted. guanaco room.
--- NOTE | 2022-08-13 08:12 | NUR ---
DR ROYAL AND BRADLEY TELEGRAPH INSPECTOR HERE FOR ROUNDS AT BEDSIDE, REVIEWED LABS, ORDERED MG STAT.
--- NOTE | 2022-08-13 08:16 | NUR ---
MED REC COMPLETE
--- NOTE | 2022-08-13 08:30 | NUR ---
ART line in left wrist leaking - this rn took down dressing, cleaned with chlorhexidine and re dressed with opsite. line zero - map 59, gas charger geneva in to consult. site wnl - pt unresponsive -5, poor urine out continues dr mata aware.
--- NOTE | 2022-08-13 08:40 | NUR ---
15 ml of urine out, na bicarb started at 125, art and cvp zeroed. no change in vent settings.
--- NOTE | 2022-08-13 08:40 | NUR ---
this rn and aníbal bean rn sero and checked art and cvp lines. Na bicarb drip see emar. Oral care done, iv pumps cleared and entered i/o.
--- NOTE | 2022-08-13 09:44 | NUR ---
corneal edema noted in both eyes of pt - geneva scrap charger notified to assess - eyes/pupils are non reactive to light at first then become reactive about the 4th time of light. pt does not follow with eyes or track. no sedation, no restraints, no movement to stimuli from this rn during assessment, pt on vent with 60% fio2, VT 420, pip 22, rr 28, hr 98, bp 89/56 map 68 - goal is map over 65 - current norepi drip at 9 mcg verified by scrap charger, pt brother is in room at side, oral care is done, pt is non reactive to cares, jeannie care, and gown changed.
--- NOTE | 2022-08-13 10:56 | NUR ---
reviewed pt resp status with vira constantino RT, no changes to vent Resp, 20-25 pt breating over vent setting of 16. Na Bicarb on iv fusing, pt repositioned in bed to r side. family in room, denies needs. sats 91 % hr 100
--- NOTE | 2022-08-13 11:14 | NUR ---
labs drawn from peripheral line with 10 ml waste.
--- NOTE | 2022-08-13 12:20 | NUR ---
md in room - updated on anuria and current vs. lab results reviewed.
--- NOTE | 2022-08-13 12:20 | NUR ---
dr mata, charge geneva, and nurse aníbal in with this RN to discuss pt status and updates, i/o no urine out, iv continues, art line zero 88/50 map 63 rr 28 over vent, end co2 24, fio2 60% pt reposistioned hob up with 2 pillows and left side floated, heels floated, all lines checked wnl, increase levophed to 10 mcg per to keep bp up. hr is vent. trigemeny per monitor and review - scds on - no family at this time.
--- NOTE | 2022-08-13 12:20 | NUR ---
dr mata here, increase to 10 mcg levophed, pt rass -5, repositioned right side and heels floated. skin all wnl, oral care by rn, ward care done.
--- NOTE | 2022-08-13 12:30 | NUR ---
notified dr of eye findings of gell like edema bilaterally.
--- NOTE | 2022-08-13 12:55 | NUR ---
dr mata asked to review pt need for pain meds/ sedation - no obvious signs of pain or distress to pt, hr 101 unchanged - dr request hold sedation and pain meds at this time, dr in to assess eyes/pupils with rn, aware of edema.
--- NOTE | 2022-08-13 13:00 | NUR ---
dr mata. RT vira constantino and this RN at bedside, Dr request to hold off on pain meds or sedation due to organ failure and pt appearing and showing no signs of distress. no urine noted - dr at bedside aware of i/o vitals and pt status.
--- NOTE | 2022-08-13 13:21 | NUR ---
Pt has a 7.0 ETTube that is 22cm at the teeth. patient continues to have cuff leaks and tube is currently 4.7cm above the martina. Advanced tube to 24 @ the teeth. Dr. Ryan is aware of this change. Pt has 30 cmh2o in the cuff which was checked with minimal leak.
--- NOTE | 2022-08-13 13:22 | NUR ---
vascular ultrasound technologist in room for test, pt positioned to very left side for study, tollerated well,
--- NOTE | 2022-08-13 13:27 | NUR ---
CHECKED ON PT-RN SARITA CHARTING IN . FAMILY HAS ARRIVED BOTH LOCAL AND OUT OF TOWN WITH MORE TO ARRIVE LATER TODAY. GAVE ENCOURAGEMENT, THEY ALL SEEM A BIT DETATCHED. GAVE ENCOURAGEMENT AND BLESSING. WILL FOLLOW
--- NOTE | 2022-08-13 14:00 | NUR ---
5 ml of urine out - vo to bolus 500 ml of LR now - pt on back repositioned after echo. no vent changes.
--- NOTE | 2022-08-13 14:11 | NUR ---
heath vasquez her to adjust bed hob up 30 degrees, start 500 ml LR now -
--- NOTE | 2022-08-13 14:20 | NUR ---
intra abd. pressure checked and 17 was value. both cvp and art lines were zero'd and correlate with bp at cuff. pt relaxed on vent arms on pillows - repositioned to r side.
--- NOTE | 2022-08-13 15:00 | NUR ---
bs fingerstick is 117, d51r fusing as well as na bicarb - see emar - albmin 100 ml given per order, drains checked and empty - gtube 50 ml to gravity bag of dark gastric content, ostomy 50 ml of dark liq. stool site wnl - stoma wnl. ward to gravity had 5 ml of yellow dark urine - bladder scan requested per dr mata and showed only 1 small area of fluid less than 10 ml assumed to be ward balloon wnl.
--- NOTE | 2022-08-13 15:21 | NUR ---
vo to place a temp prob ward and check prn abd pressures from the intra abdominal pressure device, previous ward cath removed and new temp prob placed by this rn using sterile technique with clinic charge nurse observing/assisting. temp 100.0 on monitor and 99 axilary. pt rass -5 continues and rom performed with arms and leg by this rn, skin is warmer to touch today than yesterday shift and no leg edema is noted, knees are a bit mottled looking but warm to touch. oxygen sat 86 on prob and adjusted - with poor readings continue - dr aware and not concerned.
--- NOTE | 2022-08-13 16:00 | NUR ---
decrease levophed to 7.5 mcg preassures improving and map is 60-65 on art lines, 8 ml of urine this last hour - pt apears comfortable ett tube adjusted for comfort. scd's adjusted.
--- NOTE | 2022-08-13 16:54 | NUR ---
dr mata here at bedside decrease levophed to 5 mcg. all fluids and pressure bags checked. pt rass -5, no distress noted - no sedation,
--- NOTE | 2022-08-13 17:16 | NUR ---
dr mata and nurse discharge planner geneva in room with this rn, pt made 18 ml urine in last hour, temp 100 via urine prob. abd drawn from art line by ant johnson and sent to lab. art line was zeroed and site wnl 110/50 map 65 on art - hr 101, sats 86 on vent - no setting changes, end tital 27, resp rate 19. dopamine drip continues at 5 and levophed at 5. pt repositioned r arm elevated as noted to have generalized third spacing. all drains checked and wnl - ogt to liws sm amt out. mouth moistener to oral area during cares.
--- NOTE | 2022-08-13 17:39 | NUR ---
RECEIVED CALL FROM LAB FOR CRITICAL VALUE OF WBC 37, CALL TO DR ROYAL TO UPDATE HER. LOOKING AT OTHER LABS, GIVES ORDER TO SWITCH D5LR TO NS AT 125ML/HR AND TO TURN FIO2 UP.
--- NOTE | 2022-08-13 18:28 | NUR ---
DECREASED LEVOPHED TO 4 MCG - FAMILY SITTING QUIETLY IN ROOM, NO VENT CHANGES - RESP RATE DECREASED TO 17.
--- NOTE | 2022-08-13 19:10 | NUR ---
5 ML OF URINE LAST HOUR. NO CHANGES TO VENT, AND ART PRESSURE 110/54 MAP 67.
--- NOTE | 2022-08-13 20:00 | NUR ---
DR. ROYAL IS AT BEDSIDE. PATIENT IS TACHYPNIC BREATHING FROM 25-35 ON THE VENT. SHE IS ALSO AWARE OF LAST ABG RESULTS. PATIENT IS DESATING ON THE VENT. FIO2 RAISED. PATIENT IS ALSO IN TRIGEMINY. ALARMS FOR SEVERAL BEATS OF VTACH HAVE GONE OF WELL. MUCH 6 BEATS. PATIENT IS NOT MAKING URINE HOUR BY HOUR. DR. ROYAL IS AWARE OF ALL ASSESSMENT FINDING.
--- NOTE | 2022-08-13 22:45 | NUR ---
PATIENT HAD A MAG OF 1.8. DR. ROYAL CALLED AND RECIEVED ORDERS FOR 2 GRAMS OF MG SULFATE.
--- NOTE | 2022-08-13 22:54 | NUR ---
PATIENT IS NOW IN SINUS RYTHEM. OCCASIONAL PVCS
[2022-08-14] VITALS (59 sets, daily range): BP systolic 68–141; BP diastolic 44–80
--- NOTE | 2022-08-14 00:09 | NUR ---
DR. ROYAL IS AWARE OF ABOVE ASSESSENTS
--- NOTE | 2022-08-14 02:51 | NUR ---
PATIENT IS OPENING EYES DURING REPOSITIONING. BP RAISED AND OVERBREATHING VENT. FENT GIVEN FOR PAIN AND AGITATION PER PRN ORDER.
--- NOTE | 2022-08-14 04:15 | NUR ---
dr. mata is aware of poor urine output
--- NOTE | 2022-08-14 06:49 | NUR ---
REPORTED WBC OF 36.9, PLT OF 33, BLOOD CULTURES POSITIVE RESULTS GRAM NEG RODS TO DR. ROYAL THIS AM. NO FURTHER ORDERS.
--- NOTE | 2022-08-14 07:30 | NUR ---
REPORT RECEIVED FROM NIGHT RN - THIS RN IN ROOM TO ASSESS.
--- NOTE | 2022-08-14 08:30 | NUR ---
ASSESSMENT COMPLETE, ALL LINES TRACED AND SECURED. ARTLINE ZEROED, CORELATING DAQUAN WITH NIV BP. DR. ORLANDO IN ROOM, UPDATED ON CURRENT LABS AND MEDICATION DRIPS.
--- NOTE | 2022-08-14 08:53 | NUR ---
OVER TO ROOM, BRADLEY AMADO AND PHILLY AMADO AT BEDSIDE. PATIENT REMAINS ON VENT. WILL CONTINUE TO CHECK IN ON PATIENT TO DETERMINE CASE MANAGEMENT PLANS NEEDED.
--- NOTE | 2022-08-14 09:30 | NUR ---
ALBUMIN INFUSION COMPLETE. ABDOMINAL PRESSURE CURRENTLY 16MMHG, NO CHANGE FROM YESTERDAY. LASIX ADMINISTERED. PT BP LABILE, SENSITIVE TO REPOSISTIONING AND FENTANYL.
--- NOTE | 2022-08-14 10:00 | NUR ---
RT IN ROOM TO ADJUST VENT SETTINGS.
--- NOTE | 2022-08-14 11:00 | NUR ---
MD IN UNIT AND UPDATED ON PT STATUS.
--- NOTE | 2022-08-14 12:00 | NUR ---
FAMILY IN ROOM - UPDATED ON PT CONDITION, ALL QUESTIONS ANSWERED. MD IN ROOM DISCUSSING BLOOD CONSENT WITH FAMILY.
--- NOTE | 2022-08-14 12:08 | PATH ---
[facility] [address] [facility] [place], [place] [address] Signed SPECIMEN(S): A LEFT COLON AND SIGMOID SPECIMEN(S): B GALLBLADDER SPECIMEN SOURCE: A. LEFT COLON AND SIGMOID B. GALLBLADDER CLINICAL HISTORY: Bowel perforation FINAL PATHOLOGIC DIAGNOSIS: A. Left colon, sigmoid, partial colectomy: - Segment of colon with evidence of gross perforation. - Patchy mucosal necrosis with abundant superficial acute inflammation. (see comment) - Focal microscopic mucosal perforation and pericolonic abscess with foreign material present. - Acute pericolitis and serositis. - Incidental reactive pericolonic lymph node. - Negative for atypical features or evidence of malignancy. B. Gallbladder, cholecystectomy: - Benign gallbladder with acute serositis. - Slight mucosal chronic inflammation. - Negative for calculi. - Incidental pericystic lymph node with reactive histologic features. COMMENT: The cause of the prominent acute mucosal inflammation and superficial necrosis is not clear, however, a similar pattern could be seen in pseudomembranous colitis. Clinical correlation is requested. JVR:[id number]:[id number] MICROSCOPIC EXAMINATION: Histologic sections of all submitted blocks are examined by light microscopy. These findings, together with the gross examination, support the pathologic diagnosis. GROSS DESCRIPTION: A. The specimen, labeled and designated "Lenore Brody " and designated on the requisition "left colon and sigmoid with perforation," is received in formalin and consists of one previously opened segment PATIENT NAME: XAVIER BRODY PATHOLOGY DATE OF : 41 REPORT #: [id number] PHYSICIAN: IVON PATHOLOGY PCP: SY GEORGE MD REPORT IS CONFIDENTIAL AND NOT TO BE RELEASED WITHOUT AUTHORIZATION [facility] [address] [place], [place] [address] Signed of large bowel that is 28.5 cm in length and has an average internal circumference of 6.5 cm. Approximately one half of the specimen is markedly indurated. The serosal surface is red with areas of vizcarra-white exudate. The mesentery displays one black suture. The surface is inked blue. The mucosal surface is vizcarra-red with areas of yellow-white plaque like material. Serial sectioning reveals four areas of bowel wall disruption that extend into the adjacent pericolonic adipose tissue. One of these areas of disruption corresponds to the previously described black suture. The others are adjacent to two yellow-green fluid-filled cavities within the mesentery. The bowel wall is edematous and measures up to 1.5 cm in thickness. Cassette Summary: (A1) resection margin closest area of induration, shave (A2) opposite resection margin, shave (A3) bowel wall with plaque-like material on mucosa (A4) bowel wall disruption at black suture (A5-A6) bowel wall disruptions with adjacent cavities B. The specimen, labeled and designated "Good, J, " and designated on the requisition "gallbladder," is received in formalin and consists of Specimen: Previously opened gallbladder. Dimensions: 9.4 x 2.7 x 1.8 cm. Serosa: Yellow-green and wrinkled. Cystic Duct: Inked, unobstructed. Calculi: Not grossly identified. Mucosa: Green and velvety. Wall thickness: 0.4 cm. Lymph node: No pericystic lymph nodes are grossly identified. Additional: None. Commercial Project Manager sections are submitted in (B1). FB (under the direct supervision of a pathologist) The Gross Description was prepared using a voice recognition system. The report was reviewed for accuracy; however, sound-alike word errors, addition and/or deletions may occur. If there is any question about this report, please contact Client Services. PERFORMING LABORATORY: The technical component was performed by [facility], [address] [place] [id number] (CLIA# [id number]). Professional interpretation was performed by [facility], [address] [place] [address] [place] [address] (CLIA#: [id number]). PATIENT NAME: XAVIER BRODY PATHOLOGY DATE OF : 41 REPORT #: [id number] PHYSICIAN: IVON GIBSON PCP: SY GEORGE MD REPORT IS CONFIDENTIAL AND NOT TO BE RELEASED WITHOUT AUTHORIZATION [address] [address] Signed Diagnostician: Casey Rothman MD Pathologist Electronically Signed 08/14/2022 Copies: ~ PATIENT NAME: XAVIER BRODY PATHOLOGY DATE OF : 41 REPORT #: [id number] PHYSICIAN: IVON GIBSON PCP: SY GEORGE MD REPORT IS CONFIDENTIAL AND NOT TO BE RELEASED WITHOUT AUTHORIZATION
--- NOTE | 2022-08-14 12:20 | NUR ---
LABS DRAWN FROM RIGHT AC PERIPHERAL LINE AND SENT TO LAB.
--- NOTE | 2022-08-14 12:22 | NUR ---
PT REMAINS ON VENT, CCU STAFF VERY INVOLVED WITH PTS' CARE. FAMILY PRESENT, WILL FOLLOW
--- NOTE | 2022-08-14 12:45 | NUR ---
25 MCG FENTANYL ADMINISTERED FOR INCREASE RESPIRATION AND HR. PT NOTED TO HAVE CHANGE IN HEART RYTHEM AND RATE - MD UPDATED, EKG OBTAINED WHICH CONFIRMS AFIB. ORDER RECEIVED FOR MAG LEVEL. ABDOMINAL PRESSURE RECHECKED, FOUND TO BE IN 30'S AND 40'S AFTER RECHECK - MD AND SURGEON UPDATED. KUB ORDERED.
--- NOTE | 2022-08-14 13:28 | OR ---
[facility] [address] [place], [place] [address] Signed DATE OF OPERATION: 08/12/2022 SURGEON: Juarez Orlando MD PREOPERATIVE DIAGNOSES: Critical illness, hypertension, recent dysrhythmia. POSTOPERATIVE DIAGNOSES: Critical illness, hypertension, recent dysrhythmia. PROCEDURE: Left radial art line placement. ANESTHESIA: Intravenous sedation with ventilator care. FINDINGS: Arterial blood was noted from the left radial artery and waveform as appropriate to arterial pressures. PROCEDURE: Left wrist was placed in extended position with a towel behind it and tape used to secure the hand to the table. The left wrist area was prepared with Betadine solution and draped sterilely. A 22-gauge Jelco angiocatheter was ultimately placed into the left radial artery. A blood pressure apparatus was set up to the device. The Jelco catheter was secured to the skin with a nylon suture tape. The wrist splint posteriorly applied and secured with tape and a Flexicon dressing. The arterial blood pressure readings did appear to correlate to the noninvasive cuff at 68 systolic. MD TIFFANIE Cormier/MODL /[id number] Electronically Signed By: JUAREZ ORLANDO MD 08/14/22 1328 PATIENT NAME: XAVIER SOARES OPERATIVE REPORT DATE OF : 41 REPORT #: [id number] PHYSICIAN: JUAREZ ORLANDO MD PCP: SHERMAN GEORGE MD REPORT IS CONFIDENTIAL AND NOT TO BE RELEASED WITHOUT AUTHORIZATION [id number] [place], [place] [address] Signed cc: MD Sherman Steiner MD Copies: RICKIE ROYAL MD, MALCOLM MD ~ Electronically Signed By: JUAREZ ORLANDO MD 08/14/22 1328 PATIENT NAME: XAVIER SOARES OPERATIVE REPORT DATE OF : 41 REPORT #: [id number] PHYSICIAN: JUAREZ ORLANDO MD PCP: SHERMAN GEORGE MD REPORT IS CONFIDENTIAL AND NOT TO BE RELEASED WITHOUT AUTHORIZATION
--- NOTE | 2022-08-14 14:50 | NUR ---
MD NOTIFIED OF SUSTAINED MAP BELOW 60 - DOPAMINE INCREASED TO 5 PER VERBAL ORDER.
--- NOTE | 2022-08-14 15:28 | NUR ---
SUSTAINED HR ELVATED ABOVE 130'S WITH NO IMPROVMENT IN MAP - VERBAL ORDER RECEIVED AT BEDSIDE FROM MD TO RESTART NOREPI DRIP, STARTED AT 2MCG/KG/HR.
--- NOTE | 2022-08-14 15:29 | NUR ---
PTS HEART RATE CONTINUES IN THE 120-130'S. MD AWARE AND STATES TO GIVE METOPROLOL NOW. THIS RN TO ROOM TO ASSIST WITH MEDICATION ADMINISTRATION. MEDICATINO GIVEN TO LEFT AC IV SITE. LINE FLUSHED AND SALINE LOCKED. PT FIGHTING THE VENT AT TIMES. PTS RNBRADLEY, AT BEDSIDE, NO ADDITIONAL NEEDS. BED RAILS UP.
--- NOTE | 2022-08-14 17:01 | NUR ---
MAG INFUSION COMPLETE - PT REMAINS IN AFIB WITH FREQUENT PVS, RATES 110'S. NOREPI REMAINS AT 2 WITH MAP AVERAGING AT 2. RR DECREASED AT 16 FROM 20'S - 30'S PRIOR. TEMP 100.4. UPDATED, NO FURTHER ORDERS RECEIVED AT THIS TIME.
--- NOTE | 2022-08-14 18:08 | NUR ---
labs drawn from left ac peripheral site, sent to lab. lab notified of sending.
--- NOTE | 2022-08-14 18:47 | NUR ---
FAMILY IN ROOM TO VISIT PT. NO NOTICIBLE NEUROLOGICAL RESPONSE TO THIS VISIT COMPARED TO LAST. RR REMAIN AT VENT SETTING. MAP STABLE.
--- NOTE | 2022-08-14 18:47 | EKG ---
[facility] [address] [facility] [place] [address] Signed Atrial fibrillation with rapid ventricular response Low voltage QRS Cannot rule out Anterior infarct , age undetermined Abnormal ECG When compared with ECG of 12-AUG-2022 18:15, Atrial fibrillation has replaced Ectopic atrial rhythm QRS duration has increased Minimal criteria for Anterior infarct are now present ST no longer depressed in Inferior leads ST no longer depressed in Lateral leads Confirmed by RICKIE ROYAL MD ([id number]) on 08/14/2022 6:47:25 PM Electronically Signed By: RICKIE ROYAL MD 08/14/22 1847 PATIENT NAME: XAVIER SOARES Electrocardiogram DATE OF : 41 PHYSICIAN: RICKIE ROYAL MD REPORT #: [id number] REPORT IS CONFIDENTIAL AND NOT TO BE RELEASED WITHOUT AUTHORIZATION
--- NOTE | 2022-08-14 20:37 | NUR ---
DR. ROYAL IS AT BEDSIDE. DISCUSSED PLAN OF CARE FOR THE PATIENT. DR. ROYAL OK WITH LEVO BEING TITRATED TO 5 DUE TO MAP IN THE 50S. PLATELETS STARTED AND DOCUMENTED PER HOSPITAL PROTOCOL. GOAL IS TO KEEP MAPS AT 60-65. OK TO DRAW LABS EARLY.
--- NOTE | 2022-08-14 22:00 | NUR ---
CONDITION UPDATE GIVEN TO DR. ORLANDO.
[2022-08-15] VITALS (56 sets, daily range): BP systolic 78–145; BP diastolic 45–91
--- NOTE | 2022-08-15 00:12 | NUR ---
DR. ROYAL IS AT BEDSIDE. DISCUSSED THE SIZE OF THE PATIENT NECK SWELLING MORE AND MORE. EDEMA IS LIKELY WHAT IT IS. I DO NOT FEEL ANY CREPITUS.
--- NOTE | 2022-08-15 00:19 | NUR ---
DR. ROYAL HAS BEEN AWARE OF ASSESSENT FINDINGS
--- NOTE | 2022-08-15 03:16 | NUR ---
PATIENT BECAME AGITATED ON THE VENT. SHE WAS STARTING TO BITE DOWN ON HER ET TUBE. SHE HAS OPENED HER EYES YET, ISNT DOING ANY PURPOSEFULL MOVEMENT OR FOLLOWING COMMANDS. SHE IS ALARMING LOW MINUTE VOLUME ON THE ALARM. FENTANYL ORDERED PRN HAS BEEN GIVEN.
--- NOTE | 2022-08-15 04:08 | NUR ---
NO CHANGE IN CONDITION. DR. ROYAL IS AWARE OF PATIENT CONDITION
--- NOTE | 2022-08-15 04:30 | NUR ---
COMPLETE BED CHANGE AND BED BATH DONE. MEPILEX IN PLACE
--- NOTE | 2022-08-15 05:40 | NUR ---
PATIENT STARTING ALARMING HIGH PRESSURE ON THE VENT. SHE WAS BITEING THE TUBE. AGITATED FROM COMPLETE BED BATH AND LINEN CHANGE. VERSED ORDERED PRN GIVEN
--- NOTE | 2022-08-15 06:08 | NUR ---
PATIENT HAS BEEN SATING AT 95% THROUGHOUT THE NIGHT AFTER TURNING FIO2 DOWN TO 60%. CALLED RT REGARDING COMING DOWN ON THE PEEP SOME. SHE IS AT 10. RT STATED THAT THEY TURNED DOWN THE O'S TO 40%.
--- NOTE | 2022-08-15 06:43 | NUR ---
DR. ROYAL CONTACTED REGARDING CRITICAL VALUE OF PLTS OF 46. ALSO, INFORMED HER OF PATIENT INCREASINGLY AGITATED ON THE VENT. BITEING DOWN ON HER TUBE AND BLEEDING DUE TO BITEING DOWN ON HER TUBE. I ALSO INFORMED HER OF THE NEED TO GO BACK ON LEVOPHED AT 5 MCG.
--- NOTE | 2022-08-15 07:40 | NUR ---
REPORT RECEIVED FROM CAROLYN AMADO. PT IS ON VENT VC/AC WITH RATE AT 16, TV 420, FIO2 AT 40% AND PEEP AT 10, ETT IS 23 AT THE GUMS, PTS OWN RESP RATE IS 30 WITH SPO2 92%. HR IS 100-120'S AFIB. LEVOPHED DRIP IS AT 3MCG/MIN WITH MAPS CONSISTENTLY IN 80'S PER THE NIBP AND ART LINE, WILL TITRATE DOWN ON LEVOPHED. LUNGS CLEAR IN UPPERS WITH FEW RHONCHI HEARD IN POSTERIORS. PT DOES NOT OPEN EYES TO VOICE, PUPILS VERY SLUGGISH/MINIMALLY RESPONSIVE, LOTS OF EDEMA NOTED IN SCLERA. BOWEL SOUNDS HYPOACTIVE, OSTOMY IS PUTTING OUT REDDISH/BROWN LIQUID PLUS SOME BROWN SOLID LOOKING PEICES. STOMA ITSELF IS DARK PURPLE WITH SOME DUSKY AREAS THAT LOOK A LITTLE GUADALUPE/BROWN. JPS X3 IN PLACE DRAINING S/S FLUID, GTUBE IN PLACE WITH MINIMAL OUT OF DARK BLACK/BROWN FLUID. OG DRAINING GREEN/YELLOW FLUID SMALL AMOUNT. PT HAS GENERALIZED EDEMA THROUGHOUT, ALTHOUGH IT IS LESS THAN IT WAS YESTERDAY. SKIN IS WARM AND DRY TO THE TOUCH WITH NO MOTTLING NOTED. ALEXANDER DRAINING CLEAR YELLOW URINE, APPROX 100ML/HR AT THIS TIME.
--- NOTE | 2022-08-15 08:00 | NUR ---
RT AND DR ROYAL IN TO ASSESS PT, PLAN OF CARE DISCUSSED, PLAN TO GIVE LASIX BID FOR DIURESIS. ABG RESULTS GONE OVER WITH RT AND MD, FIO2 TURNED UP TO 50% FOR PAO2 OF 61.
--- NOTE | 2022-08-15 08:30 | NUR ---
XRAY IN TO DO CHEST XRAY, PT OPENS EYES AND KEEPS THEM OPEN FOR LONGER PERIODS WITH THE REPOSITIONING. DOES NOT FOLLOW COMMANDS AT ALL AT THIS TIME.
--- NOTE | 2022-08-15 08:40 | NUR ---
RT IN TO TURN UP FIO2 TO 60% FOR SPO2 OF 90-91%. PIP 32, CONT TO MONITOR.
--- NOTE | 2022-08-15 08:40 | NUR ---
LEVOPHED DRIP TURNED OFF, WILL MONITOR BPS. DOPAMINE INFUSION CONTINUES AT 5MCG/KG/MIN.
--- NOTE | 2022-08-15 11:10 | NUR ---
ALYSA DRAINS EMPITED PER PTS PRIMARY RN REQUEST. ALYSA DRAINS #1 AND #2 SHOW SEROUS ANGUINOUS FLUID IN SMALL AMOUNTS. ALYSA DRAIN #3 SHOWS SEROUS FLUID IN SMALL AMOUNTS. PTS SISTER REMAINS AT BEDSIDE READING TO PT. NO ADDITIONAL NEEDS. PTS PRIMARY RN UPDATED.
--- NOTE | 2022-08-15 11:27 | NUR ---
HR HAS BEEN TRENDING UP NOW 120-130'S, RR 33, PEAK INSP PRESSURES 34. 12.5MCG IV FENTANYL GIVEN FOR S/S DISCOMFORT. CUFF PRESSURE IS LOW AND LEAK HEARD, RT IN TO ADJUST CUFF PRESSURE.
--- NOTE | 2022-08-15 12:15 | NUR ---
THE PTS HR AND RR HAVE COME DOWN SOME, WILL CONT TO MONITOR.
--- NOTE | 2022-08-15 13:44 | NUR ---
CARE OF PATIENT RESUMED FROM [facility] AROUND 1230. PATIENT REMAINS ON VENT WITH CURRENT SETTINGS OF VC/AC 16, VT 430, PEEP 10, FI02 60%. PATIENT HAS A 7.0 ETT, SECURED 24 @ LIP. ORAL CARE PROVIDED. PT REPOSITIONED SLIGHTLY AND HEELS OFF BED. SCDs REMAIN ON. LUNG SOUNDS REVEAL EXP WHEEZING, BUT OTHERWISE CLEAR. OSTOMY STOMA IS DARK UPON INITIAL ASSESSMENT. LEVOPHED HAS BEEN OFF SINCE AROUND 0900. ALYSA DRAINS X3 DRAINING SEROSANGINOUS FLUIDS. G TUBE DRAINING SMALL AMOUNTS OF DARK GREEN LIQUID LIKE MATERIAL. PT'S SISTER RACHNA REMAINS IN ROOM AND HER SON JANNET HAS BEEN HERE. RT NOW IN ROOM GIVING NEB TX. DOPAMINE CURRENTLY AT 2.5 MCG/KG/MIN - WAS TITRATED DOWN TO THAT AROUND 1320.
--- NOTE | 2022-08-15 15:15 | NUR ---
DR. ROYAL IN TO SEE PATIENT AT THIS TIME AND PLANO F CARE DISCUSSED. 1700 LABS TO BE DRAWN. PT REMAINS ONLY ON DOPAMINE AT 2.5 MCG/KG/MIN AT THIS TIME. BED BATH TO BE GIVEN SOON. ART LINE CONTINUES, CVP MONITORING CONTINUES. LAST NBP IS 96/52 (65). SCDs ON. CONTINUE TO MONITOR.
--- NOTE | 2022-08-15 17:52 | NUR ---
PATIENT GIVEN FULL BED BATH AND LINEN CHANGED UNDERNEATH. PT TOLERATED WELL DURING TURNING. WHILE TURNING, IT WAS NOTED ON PATIENT'S BUTTOCK AREA, BELOW WHERE THE ALLEVYN DRESSING FOR PROTECTION IS, THAT THERE IS A LARGE BLISTER, APPROX 2-3 CM LONG, AND A SMALL AREA OF NON BLANCHING REDNESS. SKIN AROUND THE BLISTER IS BLANCHING. NON BLANCHING AREA WAS APPROX SIZE OF A NICKEL, BUT UNABLE TO ACCURATELY MEASURE AT THAT TIME. MDs TO BE NOTIFIED. PATIENT WAS THEN TILTED TO HER RIGHT SIDE AND POSITIONED WITH PILLOWS. AFTER THE TURNING AND BATH, PT BECAME MORE HYPOTENSIVE, WITH ART LINE PRESSURES READING 55-70/40s, AND NON INVASIVE WAS 75/50s. PT'S DOPAMINE WAS TURNED BACK UP TO 5 MCG/KG/MIN, AND NOREPI WAS TURNED BACK ON AT 5 MCG/MIN. AFTER ABOUT 15 MINUTES, NOREPI WAS ABLE TO BE TITRATED BACK OFF. PT'S STOMA IS DARK IN COLOR, AND THERE IS AN AREA THAT LOOKS GRAYISH/TRANSLUCENT. THIS IS THE WAY IT APPERAED WHEN DR. ORLANDO WAS IN ROOM EVALUATING PATIENT TODAY. THERE IS BROWNISH GREENISH LIQUID COMING FROM STOMA SITE. JPs CONTINUE TO PUT OUT SEROSANGINOUS FLUIDS. URINE OUTPUT AT 1700 WAS 48 ML. RT AND 2ND IN ROOM TO HELP WITH TURNING AND BATH. NEB TX GIVEN PER RT AFTER BATH. WILL CONTINUE TO MONITOR.
--- NOTE | 2022-08-15 20:00 | NUR ---
PATIENT IS STABLE ON THE VENT. LEVO IS AT 2 MCG. BP DIPPED MAP IN THE 50S. DR. ROYAL IS AT BEDSIDE.
--- NOTE | 2022-08-15 22:00 | NUR ---
PATIENT IS TURNED ON HER RIGHT SIDE. TOLERATED WELL.
[2022-08-16] VITALS (51 sets, daily range): BP systolic 92–141; BP diastolic 53–73
--- NOTE | 2022-08-16 | NUR ---
TURNED PATIENT TO HER LEFT. TOLERATED WELL. NO NEW EVENTS AT THIS TIME.
--- NOTE | 2022-08-16 02:28 | NUR ---
PATIENT IS TURNED TO HER RIGHT SIDE. TOLERATED WELL. NO NEW EVENTS.
--- NOTE | 2022-08-16 06:07 | NUR ---
complete bed bath given. changed sheets. ALL IV LINES CHANGED INCLUDING ARTLINE AND CVP PER HOSPTITAL PROTOCOL INFECTION CONTROL.
--- NOTE | 2022-08-16 06:10 | NUR ---
SCD'S TAKEN OFF FOR SKIN CARE. WILL GIVE THE PATIENT A BREAK FOR ONE HOUR
--- NOTE | 2022-08-16 08:15 | NUR ---
RESUME OF CARE BY THIS RN. DR. ROYAL IN ROOM TO SEE PATIENT AND PLAN OF CARE DISCUSSED. PT'S SISTER RACHNA ARRIVES. DOPAMINE AT 2 MCG/KG/MIN THROUGH THE NIGHT BUT THIS TURNED OFF AT 0745. ART LINE BPs RANGING 120-130s/60-70s. NON INVASIVE CURRENTLY 122/69 AT 0800. DOPAMINE OFF. I/O COMPLETE. PT NOTED TO BE MOVING LEGS. PT OPENED EYES WHEN SHE WAS SAT FORWARD FOR CHEST XRAY. ABG DRAWN FROM ART LINE W/O DIFFICULTY. CVP AND ART LINE ZEROED. SP02 IS 95-97%. PT HAD 285 ML URINE AT 0800. STOMA REMAINS PALE, GRAYISH WITH A VERY LIGHT PINK NOTED. DARK BROWN/GREENISH LIQUID NOTED TO BE DRAINING. G TUBE DRAINING GREEN SLUDGY-LIKE MATERIAL. OG DRAINING BILE/GREEN LIQUID. WILL CONTINUE TO MONITOR.
--- NOTE | 2022-08-16 10:00 | NUR ---
PATIENT REPOSITIONED TO RIGHT SIDE AND PILLOWS PLACED BEHIND HER. URINE OUTPUT FOR THE HOUR WAS 110 ML. SCDs ON. IVF CONTINUE AT 100 ML/HR. HR IN THE 70-80s, SINUS. PT'S SISTER IN ROOM. PT HAS HAD SEVERAL VISITORS THIS AM. WILL CONTINUE TO MONITOR.
--- NOTE | 2022-08-16 11:58 | NUR ---
PATIENT REPOSITIONED TO LEFT SIDE AND TOLERATED WELL. PT HAS 3 FAMILY MEMBERS IN ROOM AT THIS TIME. PT REMAINS OFF PRESSOR SUPPORT. PT OPENING EYES PARTIALLY WHEN MOVING OR CAUSING DISCOMFORT. BLOOD PRESSURES ARE RESPONSIVE TO PAIN NOTED BY ART LINE PRESSURE INCREASING TO 140s WITH MOVEMENT. WILL MONITOR AND GIVE SEDATION/PAIN MEDS IF NEEDED. URINE OUTPUT REMAINS GOOD AFTER LASIX WAS GIVEN THIS AM. PLATELETS TO BE GIVEN ONCE THEY ARRIVE. FI02 IS NOW AT 50%, OTHERWISE VENT SETTINGS REMAIN THE SAME.
--- NOTE | 2022-08-16 15:41 | NUR ---
PATIENT HAS NOW RECEIVED 2 UNITS OF PLATELETS AND TOLERATED WELL. PT HAS HAD 3-4 VISITORS IN ROOM FOR THE LAST COUPLE OF HOURS. OG TUBE REMOVED AND TUBE FEEDS TO BE STARTED AT 15 ML/HR, ELEMENTAL FEEDS PER DR. ORLANDO. HOB TO BE UP AT LEAST 30 DEGREES DURING FEEDS. WILL CONTINUE TO MONITOR.
--- NOTE | 2022-08-16 16:36 | NUR ---
DR. STRATTON IN ROOM TO SEE PATIENT AT THIS TIME. PT'S SISTER PAT REMAINS IN ROOM.
--- NOTE | 2022-08-16 16:57 | NUR ---
TUBE FEEDS STARTED AT 15 ML/HR WITH GREEN FOOD COLORING ADDED PER DR. ORLANDO ORDER. FORMULA IS OSOMOLITE 1.5 WITHOUT FIBER. WILL CONTINUE TO MONITOR CLOSELY FOR ANY SIGNS OF ASPIRATION.
--- NOTE | 2022-08-16 17:49 | NUR ---
BLOOD CULTURES DRAWN - ONE FROM CENTRAL LINE AND ONE PERIPERHALLY. SODIUM BICARB GTT STARTED AT 85 ML/HR PER ORDER X 1 L, ONCE THIS HAS FINISHED WILL CONTINUE OTHER IVF AT 100 ML/HR. URINE OUTPUT HAS REMAINED SATISFACTORY TODAY. PT SQUEEZED HER SISTER'S HAND EARLIER WHEN SHE WAS TALKING TO HER. PUPILS REMAIN BRISK AND REACTIVE. PT STILL NOT OTHERWISE PARTICIPATING OR INTERACTING. WILL OPEN EYES SLIGHLTY TO PAIN AND DOES WITHDRAWN FROM PAINFUL STIMULI LIKE NAILBED PRESSURE.
--- NOTE | 2022-08-16 18:02 | NUR ---
THIS RN TO ROOM TO ASSIST WITH LAB DRAW, BLOOD CULTURES AND MEDICAITON ADMINISTRATION. SEE LAB DRAW DOCCUMENTATION. PT TOLERATED WELL. LABS BOTTELED AND LABELED BY LAB TECNITIAN. PTS PRIMARY RN UPDATED. NO ADDITONAL NEEDS. BED RAILS UP. PTS PRIMARY RN AT BEDSIDE.
[2022-08-17] VITALS (51 sets, daily range): BP systolic 85–132; BP diastolic 50–97
--- NOTE | 2022-08-17 05:37 | NUR ---
PATIENT HAS BECOME AGITATED ON VENT. BITEING DOWN ON THE TUBE AND CLAMPING HER AIRWAY. PATIENT HAS WENT INTO AFIB RVR 120-130S SUSTAINED. 12 LEAD RECIEVED. CONFIRMED. DR. STRATTON WAS CALLED AND INFORMED OF PATIENT CONDITION. METOPROLOL IV ODERED SCHEDULED. OK TO OVERRIDE ALLERGY PER PHYSICIAN. MG LEVEL ADDED ON THIS AM. AN ORDER FOR 20 MEQ OF K HAVE BEEN ORDERED WELL. DR. STRATTON HAS BEEN MADE AWARE OF CRITICAL VALUE OF PLTS 32 WELL.
--- NOTE | 2022-08-17 06:07 | NUR ---
GAVE THE METOPROLOL ORDERED BY DR. STRATTON. PATIENT'S PRESSURE DROPPED TO A SYSTOLIC OF 70S OVER 40S.
--- NOTE | 2022-08-17 06:54 | NUR ---
CALLED DR. STRATTON REGARDING PATIENT BLOOD PRESSURE TANKING AFTER GIVING METOPROLOL. HE HAS D/C'D LASIX AND METOPROLOL. PATIENT HAS NOW CONVERTED TO SR.
--- NOTE | 2022-08-17 07:44 | NUR ---
CARE OF PATIENT RESUMED BY THIS RN. PATIENT RESTING ON VENT WITH SETTINGS OF VC/AC 16, VT 420, PEEP 10, FI02 60%. RT IN ROOM. ART LINE RANGING 85-95/55-60s. PT NOW BACK IN SINUS RHYTHM OF 630 THIS AM, HR 80s. TUBE FEEDS REMAIN AT 15 ML/HR AND PT HAS REPORTEDLY TOLERATED THESE WELL. ALYSA SITES X3 REMAIN PUTTING OUT SEROSANGINOUS FLUIDS. D5 NS INFUSING AT 100 ML/HR AFTER SODIUM BICARB GTT HAS FINISHED. WILL CONTINUE TO MONITOR.
--- NOTE | 2022-08-17 08:36 | NUR ---
PATIENT TURNED TO LEFT SIDE AND POSITIONED WITH PILLOWS. PT NOTED TO BE BITING DOWN ON TUBE AT TIMES. ORAL CARE PROVIDED AND TEETH BRUSHED. OSTOMY EMPTIED FOR 140 DARK BROWN LIQUID FLUID. SP02 IS 93% ON 65%. PT'S SISTER PAT AT BEDSIDE, NOW READIGN TO PATIENT. PT OPENS EYES WHEN BEING SUCTIONED OR MOVED PHYSICALLY, BUT DOES NOT FOLLOW COMMANDS. SCDs ON. NBP 117/72 AT THIS TIME. PT REMAINS IN SINUS RHYTHM. ALYSA ON RIGHT SIDE HAS MAUVE COLORED EXUDATE FROM IT, NO LONGER SEROSANGINOUS LIKE IT WAS. WILL INFORM MD WHEN HE ROUNDS TODAY. STOMA COLOR REMAINS GRAYISH/TRANSLUCENT. ALEXANDER INTACT AND PUTTING OUT QS URINE.
--- NOTE | 2022-08-17 09:41 | NUR ---
WE CURRENTLY DO NOT HAVE ANY ELEMENTAL TUBE FEEDING FORMULA IN HOUSE. PHARMACY WAS ABLE TO ORDER SOME TODAY. SHOULD BE IN TOMORROW. USE OSMOLITE 1.2 KASI NO FIBER FORMULA FOR NOW, CONTINUOUS FEED AT 15 ML/HR. WILL FOLLOW UP TOMORROW.
--- NOTE | 2022-08-17 09:56 | NUR ---
DR. STRATTON IN ROOM TO SEE PATIENT AT 0900. CHEST XRAY AND ABG DRAWN. VENT SETTINGS CHANGES PER RT AND DR. STRATTON, VT DOWN TO 330 FROM 420. RIGHT AFTER CHEST XRAY, PT NOTED TO HAVE DARK BILE LIKE MATERIAL OUT OF RIGHT SIDE OF MOUTH. ORAL SUCTION PROVIDED, AND THEN PATIENT STARTED TO ACTIVELY VOMIT WITH LARGE AMOUNTS OF DARK BILIOUS LIKE LIQUID. ABOUT 200 ML SUCTIONED FROM MOUTH WHILE PATIENT VOMITING. TUBE FEEDS IMMEDIATELY STOPPED. DR. STRATTON IN ROOM AGAIN AND ORDERS FOR NAUSEA MEDICATIONS REC'D - ZOFRAN GIVEN PER EMAR. GASTRIC RESIDUAL ASPIRATED AND [address] ORLANDO TO BE CALLED.
--- NOTE | 2022-08-17 10:00 | NUR ---
DR. ORLANDO CALLED AND GIVEN AN UPDATE ON VOMITING. ORDER REC'D TO STOP TUBE FEEDS AND RECONNECT G TUBE TO ALEXANDER BAG. PT TO BE STARTED ON TPN TODAY.
--- NOTE | 2022-08-17 11:54 | NUR ---
DR. ORLANDO IN TO SEE PATIENT AND PLAN OF CARE DISCUSSED. PT WILL BE STARTED ON TPN TODAY.
--- NOTE | 2022-08-17 12:50 | NUR ---
PATIENT GIVEN BED BATH WITH ALEXANDER CARE AND HAIR SHAMPOO CAP. PT STILL HAVING SOME EMESIS AROUND THE ETT, WHICH IS SUCTIONED OUT OF MOUTH. BLOOD PRESSURES TOLERATED BEING MOVED, BUT PATIENT DID HAVE THE EMESIS WHEN TURNED. LUNG SOUNDS ARE CLEAR, DEEP ETT SUCTIONING PROVIDED WELL. PT BACK TO 60% FI02 AND CURRENT SP02 IS 91%. CURRENT VENT SETTINGS ARE VT 330, VC/AC 16, 60%, PEEP 10. ETC02 IS CURRENTLY 29. PT BREATHING 30-33 CURRENTLY. SCDs BACK ON. ALEXANDER DRAINING CLEAR YELLOW URINE. HR IN THE 80s SINUS. 20 MEQ POTASSIUM INFUSING THROUGH CENTRAL LINE. ABX INFUSIONS COMPLETE. CONTINUE TO MONITOR CLOSELY.
--- NOTE | 2022-08-17 13:05 | OR ---
[facility] [address], [place] [address] Signed DATE OF OPERATION: 08/12/2022 SURGEON: Juarez Orlando MD PREOPERATIVE DIAGNOSES: Critical illnesses, need for central venous catheter. POSTOPERATIVE DIAGNOSES: Critical illnesses, need for central venous catheter. PROCEDURE: Left subclavian triple-lumen power central venous catheter. ANESTHESIA: Fentanyl and Versed intravenous sedation. INDICATION: A 77-year-old white woman underwent subtotal colectomy, cholecystectomy, NG tube placement throughout the night today for generalized peritonitis, gross fecal contamination of the entire peritoneal cavity and sepsis. She has remained somewhat hypertensive and with marginal urine output. A central venous catheter was attempted in the operating room in the life scientist hours today in the right internal jugular and in the left subclavian, always accessing the venous blood, but unable to pass the flexible J-wire, passed what appeared to be the right superior mediastinum. A central venous catheter is planned at this time for further monitoring. FINDINGS: Dark nonpulsatile blood was noted from the left subclavian vein. Passage of the wire was easy and without problem whatsoever. Catheter was placed and is highly functional. Chest x-ray shows good position of the tip of the catheter in the atriocaval junction. DESCRIPTION OF PROCEDURE: In the supine position in the intensive care unit with the head neutral, the left infraclavicular space was prepared with a chlorhexidine solution and draped sterilely. Using sterile precaution protocol including mask, gloves, gown and so forth, access to the left subclavian vein was easily undertaken in a single pass showing dark nonpulsatile blood. A flexible J-wire was passed down the needle without resistance or other problem. The needle was removed. The site was incised with an 11 blade and dilated with a balloon dilator and a previously inspected and irrigated Arrow blue PowerPort type catheter placed over the wire without problem. The wire was removed. Electronically Signed By: JUAREZ ORLANDO MD 08/17/22 1305 PATIENT NAME: XAVIER SOARES OPERATIVE REPORT DATE OF : 41 REPORT #: [id number] PHYSICIAN: JUAREZ ORLANDO MD PCP: SHERMAN GEORGE MD REPORT IS CONFIDENTIAL AND NOT TO BE RELEASED WITHOUT AUTHORIZATION [address] [address] Signed Aspiration on the distal port showed dark nonpulsatile blood. The site was flushed. The catheter secured the skin within close collar device and sutured and a gel type OpSite applied to it. A postprocedure chest x-ray shows good position of the tip of the catheter. No evidence of pneumothorax. There was somewhat deep sulcus on the left side. MD TIFFANIE Cormier/MAXXL /[id number] cc: MD Sherman Kumar MD Cynthia Rasch, MD Copies: SILVIA GUTHRIE MD, MALCOLM MD RASCH, CYNTHIA MD ~ Electronically Signed By: JUAREZ ORLANDO MD 08/17/22 1305 PATIENT NAME: XAVIER SOARES OPERATIVE REPORT DATE OF : 41 REPORT #: [id number] PHYSICIAN: JUAREZ ORLANDO MD PCP: SHERMAN GEORGE MD REPORT IS CONFIDENTIAL AND NOT TO BE RELEASED WITHOUT AUTHORIZATION
--- NOTE | 2022-08-17 15:06 | NUR ---
PATIENT'S FAMILY IN ROOM AND HAS BEEN SINCE AFTER BED BATH. PT NOTED PER FAMILY TO BE OPENING HER EYES MORE AND MAKING MOVEMENTS WITH HER MOUTH, SOMETIMES CHEWING ON ETT. UPDATE PROVIDED TO FAMILY IN ROOM. G TUBE NOW TO GRAVITY DRAIN ALEXANDER BAG AND HAS CONTINUED TO PUT OUT DARK BROWNISH/GREEN LIQUID. HR IN THE 90s, SINUS RHYHTM. ART LINE CURRENTLY 126/68 (87) AND NBP 112/67 (80). WILL WILL CONTINUE TO MONITOR.
--- NOTE | 2022-08-17 15:43 | NUR ---
PATIENT REPOSITIONED TO RIGHT SIDE. PT TOLERATED WELL. SP02 HAS BEEN HOVERING 88-89% AND FI02 INCREASED BACK TO 60% FROM 55%. RT CALLED AND DISCUSSED WITH HIM. RT STATES THEY WILL GIVE A NEB SOON. PT HAS NOW HAD AT LEAST 875 ML DRAINED FROM HER OG OR THROUGH SUCTIONING THE EMESIS. PT REMAINS WITHOUT BOWEL SOUNDS. TUBE FEEDS ARE D/C. STOMA SITE CONTINUES TO APPEAR GRAYISH/TRANSLUCENT. POTASSIUM INFUSIONS HAVE COMPLETED. CONTINUE TO MONITOR.
--- NOTE | 2022-08-17 17:00 | NUR ---
DISCUSSED IVF WITH DR. STRATTON, AND ONCE SODIUM BICARB INFUSION IS FINISHED, ONLY TPN WILL BE INFUSING. INQUIRED ABOUT REPEAT ABG THIS EVENING BUT WE WILL WAIT UNTIL MORNING TO GET AN ABG PER DR. STRATTON. CONTINUE TO MONITOR.
--- NOTE | 2022-08-17 17:52 | NUR ---
PATIENT'S VENT ALARMING HIGH RR, RATE OF 40. INTO PATIENT'S ROOM. PT SEEMS UNCOMORTABLE, GRIMACING AND FURROWING BROW. PT GIVEN 12.5 MCG FENTANYL AND [address] STRATTON AND RT IN ROOM EVALUATING PATIENT. PT'S ABDOMEN DOES SEEM MORE DISTENDED, AND NOW OSTOMY OUTPUT SHOWS BURGUNDY/DARK LIQUID MATERIAL, RESEMBLING BLOOD, WHICH IS A NEW FINDING OF THIS AFTERNOON. LAST TIME OSTOMY WAS EMPTIED, FLUID WAS DARK GREEN IN COLOR. G TUBE CONTINUES TO EXPEL DARK GREEN BILE LIKE MATERIAL. PT DESATURATING, DOWN LOW 81%. FI02 IS NOW UP TO 100%. ALBUMIN BEING GIVEN PER EMAR, WITH LASIX TO FOLLOW. WILL AIM TO GIVE MORE PAIN AND SEDATION MEDICATIONS TO KEEP PATIENT COMFORTABLE. PEEP IS ALSO INCREASED TO 14 AT THIS TIME.
--- NOTE | 2022-08-17 17:55 | NUR ---
DR. STRATTON CALLS DR. ORLANDO AND EXPRESSES CONCERNS ABOUT DESATURATIONS, BLOOD IN OSTOMY, INCREASED RR, AND OVERALL CONDITION. PT STILL HAS ABSENT BOWEL SOUNDS. EDEMA IN ABDOMEN IS VERY VISIBLE, WITH LIGHT TOUCH OF STETHOSCOPE IT LEAVES INDENTATION. WILL CONTINUE TO MONITOR CLOSELY.
--- NOTE | 2022-08-17 17:56 | NUR ---
CHEST XRAY COMPLETE PER ORDER.
--- NOTE | 2022-08-17 18:10 | EKG ---
[facility] [address] [facility] [place] [address] Signed Atrial fibrillation with rapid ventricular response Low voltage QRS Cannot rule out Anterior infarct , age undetermined Abnormal ECG No previous ECGs available Confirmed by JENNY STRATTON MD ([id number]) on 08/17/2022 6:10:27 PM Electronically Signed By: JENNY STRATTON MD 08/17/22 181 PATIENT NAME: XAVIER SOARES Electrocardiogram DATE OF : 41 PHYSICIAN: JENNY STRATTON MD REPORT #: [id number] REPORT IS CONFIDENTIAL AND NOT TO BE RELEASED WITHOUT AUTHORIZATION
--- NOTE | 2022-08-17 18:28 | NUR ---
FI02 TURNED TO 95%, SP02 IS 93%. PIP ARE 33-35 AT THIS TIME. RR IS 33. PT GIVEN ADDITIONAL 25 MCG FENTANYL. WILL MONITOR CLOSELY. PT HAS HAD A TOTAL OF 1310 OUTPUT FROM THE GTUBE AND THE EMESIS THAT WAS SUCTIONED WHILE PT WAS ACTIVELY VOMITING. URINE OUTPUT FOR THE DAY WAS 1185 FOR THE SHIFT.
--- NOTE | 2022-08-17 18:55 | NUR ---
FI02 DECREASED TO 90%. S;02 93-94%. PT GIVEN 1 MG VERSED- SEE EMAR. PIP 32 AND RR 31.
--- NOTE | 2022-08-17 21:27 | NUR ---
PATIENT HAS STARTED TO ALARM ON THE VENT. HIGH RESP RATE. PATIENT BREATHING IN THE 40S. PRN FENT GIVEN FOR VENT COMPLIANCE.
--- NOTE | 2022-08-17 22:00 | NUR ---
RT IN THE ROOM. BITE BLOCK READJUSTED AND SECURED BY RT. PATEINT WAS BITING ON TUBE. FENT WAS GIVEN IN RESPONSE TO AGITATION. PATIENT SATS INCREASED AND PIP IMPROVED WELL.
[2022-08-18] VITALS (40 sets, daily range): BP systolic 87–125; BP diastolic 40–77
--- NOTE | 2022-08-18 02:57 | NUR ---
ART LINE DRESSING CHANGED. STERILE TECHNIQUE
--- NOTE | 2022-08-18 03:53 | NUR ---
PATIENT IS RR OF 26. FREQUENT PVCS. WILL DRAW LABS EARLY
--- NOTE | 2022-08-18 05:40 | NUR ---
PATIENT LABS K IS 3.6. DR. STRATTON CONTACTED AND 20 MEQ K IV ORDERED. ALSO, DURING MORNING LABS. ARTLINE BECAME DISPLACED; NO LONGER ABLE TO FLUSH. PULLED AND INFORMED DR. STRATTON. BEDSHEETS CHANGED AND FULL BED BATH COMPLETED.
--- NOTE | 2022-08-18 09:00 | NUR ---
DR. STRATTON IN ROOM TO SEE PATIENT AT THIS TIME. NOTED DURING AM ASSESSMENT THAT ETT WAS 22 AT LIP, WHERE IT WAS 24 AT THE LIP, 23 AT THE TEETH YESTERDAY. RT ADVANCED TUBE, NOW 24 AT LIP. PT REMAINS WITHOUT BOWEL SOUNDS. G TUBE DRAINING DARK GREEN LIQUID. OSTOMY HAS DARK GREEN/BURGUNDY COLORED LIQUID WELL. ALYSA X3 WITH SEROSANGINOUS DRAINAGE. ORAL CARE PROVIDED. CURRENT VENT SETTINGS ARE VC/AC 16, VT 330, PEEP 16, FI02 70%. PT CONTINUES TO OVERBREATH THE VENT, 31-33. PIPS ARE HIGH, CURRENTLY 32. ETC02 IS NOW 28-35. HR IN THE 80s, SINUS. SOME PVCs NOTED THIS AM. EDEMA PERSISTS THROUGHOUT - 2-3+ IN PLACES. SCDs ON. WILL CONTINUE TO MONITOR.
--- NOTE | 2022-08-18 10:37 | NUR ---
PATIENT TURNED TO RIGHT SIDE AND NOTED TO FLIP INTO AFIB. PT HAD PACs EARLIER TODAY AND SOME PVCs. DR. STRATTON IN CCU AND AWARE. HR CURRENTLY 90-110s. WILL CONTINUE TO MONITOR. PRN FENTANYL BEING GIVEN FOR COMFORT. PT GRIMACES WHEN BEING TURNED. TPN CONTINUES AT 63 ML/HR. CUFF ON ETT POTENTIALLY HAS A LEAK - RT AWARE, DR. ORLANDO AND DR. STRATTON AWARE, AND WILL FURTHER MONITOR. CURRENTLY CUFF IS HOLDING AND NO EXTRA SOUNDS NOTED FROM AIRWAY. IF NEEDED, TUBE COULD POTENTIALLY BE EXCHANGED WITH HELP OF ANESTHESIA PROVIDER. SP02 IS 92% ON AT THIS TIME ON 70%. PEEP IS CURRENTLY DOWN TO 12.
--- NOTE | 2022-08-18 11:20 | NUR ---
PATIENT'S FAMILY IN ROOM AND ASKING FOR AN UPDATE WHICH WAS PROVIDED. PT'S SISTERS, AND SON IN ROOM. PT'S SISTER RACHNA, WHO HAS BEEN HERE FOR THE LAST SEVERAL DAYS LEFT AND WENT BACK TO HER HOME IN [place], [place]. HER NUMBER IS [phone]. PT'S SON MARTIN AND PHILIPPE REMAIN HER MAIN CONTACT PERSONS. PATIENT REMAINS IN AFIB, 110s.
--- NOTE | 2022-08-18 11:45 | NUR ---
PATIENT CONTINUES TO BE ON THE VENT. AND UNRESPONSIVE. FAMILY HAS JUST VISITED PER CCU RN. CASE MANAGEMENT IS AVAILABLE TO THE FAMILY FOR FUTURE DC PLANNING.
--- NOTE | 2022-08-18 12:05 | NUR ---
ASSESSMENT COMPLETE. RR 28/16, VT 330, PEEP 10. RT KAYLA IN ROOM. PT SPO2 93%. TPN INFUSING WNL. ALEXANDER EMPTIED 450ML. EXP WHEEZE IN BILAT UPPER LOBES NOTED. PT UNRESPONSIVE TO VOICE/TOUCH AT THIS TIME, FAMILY AT BEDSIDE.
--- NOTE | 2022-08-18 14:08 | NUR ---
PT ON VENT, UNRESPONSIVE. FAMILY IN RM, VIGILANT AND SUPPORTIVE. SUPPORT AND ENCOURAGEMENT GIVEN. WILL FOLLOW
--- NOTE | 2022-08-18 16:00 | NUR ---
TOTAL CARES COMPLETE. BED BATH DONE. OSTOMY FULLY CHANGED. DRESSINGS REPLACED TO ALYSA SITES X3, STERI STRIPS TO DEHISCED AREAS OF MIDLINE ABD INCISION, COVERED WITH NEW ABD PAD. ETT PLATT REPLACED WITH ASSISTANCE FROM RT KAYLA. VERSED ADMINISTERED FOR PT COMFORT PRIOR TO LINEN CHANGE. SKIN VISUALIZED- BARRIER CREAM APPLIED TO SACRAL AREA, COCCYX ALLEVYN IN PLACE C/D/. NEW BAG TPN INFUSING WNL.
--- NOTE | 2022-08-18 16:50 | NUR ---
PATIENT NOW BACK IN SINUS RHYTHM OF AROUND 1600. TOTAL LINEN CHANGE AND BATH PROVIDED. PT TOLERATED BETTER TODAY THAN YESTERDAY. ETT PLATT CHANGED PER RT. OSTOMY APPLIANCE CHANGED AND NEW BAG APPLIED. G TUBE REMAINS DRAINING GREEN DARK LIQUID. OSTOMY OUTPUT REMAINS DARK GREEN AND LIQUID WELL, LESS BURGUNDY TODAY THAN YESTERDAY. RT TITRATES DOWN FI02 TO 60%. PEEP IS NOW AT 10. CONTINUE TO MONITOR.
--- NOTE | 2022-08-18 18:39 | NUR ---
Pt medicated with 25mcg fentanyl for pain. Tedhose placed for BLE edema. VSS. Vent settings currently 65% fio2, RR 28/16, VT 330. Ostomy/G tube/ALYSA drains emptied. Pt family at bedside.
--- NOTE | 2022-08-18 20:42 | NUR ---
PATIENT IS RESTLESS BY MEANS OF TACHYPNEA. MIDAZOLAM GIVEN FOR SEDATION.
--- NOTE | 2022-08-18 23:28 | NUR ---
patient is resting in bed. comfortable on the vent. turned on right side.
[2022-08-19] VITALS (40 sets, daily range): BP systolic 90–131; BP diastolic 38–82
--- NOTE | 2022-08-19 02:00 | NUR ---
PATIENT RESTING ON LEFT SIDE. NO AGITATION NOTED
--- NOTE | 2022-08-19 04:00 | NUR ---
BLANKETS TAKEN OFF OF PATIENT DUE TO TEMP OF 99.9
--- NOTE | 2022-08-19 05:43 | NUR ---
REPORTED K OF 3.3, PLTS OF 33, AND ASKED FOR A NEW TYPE AND SCREEN FROM DR. STRATTON THIS AM. ORDERS FOR TYPE AND SCREEN, AND 40 MEQ OF K GIVEN.
--- NOTE | 2022-08-19 06:25 | NUR ---
CHANGED SHEETS AND GAVE BED BATH. TOLERATED WELL
--- NOTE | 2022-08-19 07:00 | NUR ---
Report received from Sussy AMADO. Assuming care of pt at this time
--- NOTE | 2022-08-19 08:00 | NUR ---
ASSESSMENT COMPLETE. PT REMAINS STABLE ON VENT- SETTINGS FIO2 80%, PEEP 12, VC 16. PT RESPONSIVE TO PRESSURE, RASS SCORE -4, OPENS EYES BUT NOT TRACKING. PUPILS BRISK AND REACTIVE. HR IN HIGH 80'S AT THIS TIME IN NSR. LUNGS WITH EXP WHEEZE NOTED, COARSE, DIM IN BASES. RR 29/16 WITH SPO2 92%. OSTOMY EMPTIED- GREEN/BLOOD TINGED OUTPUT. G TUBE EMPTIED, GREEN OUTPUT. ALEXANDER WITH YELLOW URINE W SEDIMENT. ALYSA X3 MINIMAL SEROSANGUINOUS OUTPUT. MIDLINE INCISION C/D/I WITH STERI STRIPS AND EMA, ABD PAD. GENERALIZED EDEMA 3+ TO EXTREMITIES, ABD, NECK. TEDS/SCDS IN PLACE, HP IN PLACE. ORAL CARE DONE, PT POSITIONED TO R SIDE. MEDICATIONS ADMINISTERED, PRN 50MCG FENTANYL D/T PT GRIMACING WITH TURN.
--- NOTE | 2022-08-19 08:39 | NUR ---
THIS RN IN TO ASSIST KEN AMADO WITH CARES. PATIENTS SPO2 88% THIS RN TITRATED FIO2 TO 80%. PATIENT REPOSITIONED AND ORAL CARE PROVIDED. PATIENTS SPO2 CONTINUED TO STAY 88%. RT NOTIFIED AND FIO2 TURNED TO 90%. RT AT THE BEDSIDE. PATIENTS BREATH SOUNDS ARE CLEAR. NO SECRETION WITH ET TUBE SUCTIONING. ORAL CARE DONE. PATIENT HAS MINIMAL GAG REFLEX. PATIENT DOES NOT HAVE RESTRAINTS IN PLACE. OTHER AM CARES PRVIDED BY KEN AMADO AND SENIOR QUALITY CONTROL INSPECTOR ED.
--- NOTE | 2022-08-19 09:45 | NUR ---
LAB IN ROOM FOR DRAW. INGRIS LOZANO DRAWS FROM THE [facility].
--- NOTE | 2022-08-19 10:00 | NUR ---
PT STABLE WITH VENTILATION- RR 31/16, SPO2 92%, PEEP 12, PIP 28 AT THIS TIME. UNASYN IV ABX INFUSING. PT REPOSITIONED WITH PILLOWS.
--- NOTE | 2022-08-19 11:00 | NUR ---
NEW ALEXANDER CATHETER INSERTED PER ORDER AND UA WITH CULTURE SENT. BED BATH COMPLETE WITH CHANGE OF MEPILEX ON COCCYX- NEW PHOTOS TAKEN AND PLACED IN CHART. BARRIER CREAM APPLIED. DRESSINGS TO ALYSA DRAINS REPLACED.
--- NOTE | 2022-08-19 12:00 | NUR ---
DR ORLANDO AT BEDSIDE TO INSERT NEW CENTRAL LINE CATHETER. PT STABLE ON VENT WITH PEEP 12, FIO2 90%, PT RR 27/16. TOLERATES PROCEDURE WITH VSS. ALEXANDER EMPTIED OF 775, OSTOMY 75. ORAL CARE PERFORMED AND PT REPOSITIONED WITH PILLOWS.
--- NOTE | 2022-08-19 13:05 | NUR ---
ASSISTED JUAREZ JIMENEZ WITH ETT TUBE EXCHANGE DUE TO SUSPECTED CUFF LEAK. ETT EXCHANGED TO 7.5 23CM AT TEETH WITH BOUGIE TUBE STYLET. POST EXCHANGE EQUAL BBS, POSITIVE ETCO2, XRAY CALLED TO CONFIRM PROPER PLACMENT. PT HYPEROXYGENATED WITH 100% O2 AND UPPER AIRWAY SUCTIONED PRIOR TO EXCHANGE.
--- NOTE | 2022-08-19 13:05 | NUR ---
JUAREZ DILLARD AND KAYLA RT AT BEDSIDE FOR ETT REPLACEMENT. 4MG VERSED AND 50MCG FENTANYL ADMINISTERED FOR SEDATION, PT -3 RASS SCORE AND BITES ON ETT. CXR ORDERED TO CONFIRM PLACEMENT.
--- NOTE | 2022-08-19 13:29 | NUR ---
PT'S CONDITION BASICALLY UNCHANGED-ON VENT. FAMILY IN READING TO PT. GAVE BLESSING AND ENCOURAGEMENT. WILL FOLLOW
--- NOTE | 2022-08-19 14:32 | NUR ---
IV ALBUMIN HANGING. PT SPO2 91% ON FIO2 100%, PEEP 16, RR 29/16, BP 90/57 (67). VERBAL ORDERS FROM DR STRATTON TO ADMINISTER LASIX AND K AFTER ALBUMIN INFUSION.
--- NOTE | 2022-08-19 14:49 | NUR ---
PATIENT CONTINUES TO BE UNRESPONSIVE AND ONLY REACTING TO PAIN.THE [facility] IS AVAILABLE NEEDED FOR DISCHARGE ISSUES OR CONCERNS.
--- NOTE | 2022-08-19 16:00 | NUR ---
ASSESSMENT COMPLETE. LINEN AND GOWN CHANGE, PT REPOSITIONED WITH PILLOWS. ORAL CARE COMPLETE. ALEXANDER EMPTIED. TEDHOSE REMOVED FROM BLE. NEW TEDHOSE PLACED ON BUE. MIDLINE INCISION CARE COMPLETE- NEW STERI STRIPS TO DEHISCED AREA, MINIMAL DRAINAGE NOTED. BARRIER CREAM APPLIED TO YOUSUF AREA AND REDDENED SPOT ON MID BACK.
--- NOTE | 2022-08-19 17:00 | NUR ---
TPN AND LIPIDS HANGING, NEW TUBING. VSS ON VENTILATION- FIO2 90%, PT SPO2 97% WITH PEEP 16.
--- NOTE | 2022-08-19 19:58 | NUR ---
PT ASSESSED, FOUND TO BE LAYING IN HOSPITAL BED WITH A RASS OF -4. PT GRIMACES WITH PAINFUL STIMULI, HOWEVER, DOES NOT RESPOND WITH PURPOSEFUL MOVEMENT. ALARM PERAMATERS SET, VENTILATOR SETTINGS CHECKED. PT IS [facility] PEEP OF 16 AND 90% FIO2. FIO2 REDUCED TO 80%. PT TURNED, TWO RN SKIN CHECK PEROFRMED. ETT PLACEDMENT CONFIRMED VISUALLY AND SECURED USING A COMMERCIAL ETT PLATT. BASELINE VITALS CHECKED. ALEXANDER CATH CLEANED WITH CHG WIPE. PT REPOSITIONED TO L. SIDE. CENTRAL LINE CHECKED AND FOUND TO BE PATENT. FAMILY AT BEDSIDE WITH NO QUESTIONS OR CONCERNS.
--- NOTE | 2022-08-19 22:00 | NUR ---
PT TURNED TO R. SIDE.
[2022-08-20] VITALS (21 sets, daily range): BP systolic 104–141; BP diastolic 46–82
--- NOTE | 2022-08-20 | NUR ---
PT REPOSITIONED, ORAL CARE PERFORMED AND ETT REPOSITIONED TO R. SIDE OF MOUTH.
--- NOTE | 2022-08-20 02:09 | NUR ---
PT REPOSITIONED. PT NOTED TO BE IN A-FIB. DR. STRATTON AWARE OF PT'S PAROXYSMAL A-FIB. B/P REASSESSED AND FOUND TO BE WNL. HR IRREGULAR BETWEEN 110 TO 130
--- NOTE | 2022-08-20 02:16 | NUR ---
DR. STRATTON CALLED AND INFORMED OF CHANGE IN PTS CARDIAC RHYTHM FROM NSR TO A-FIB. NO NEW ORDERS OBTAINED AT THIS TIME.
--- NOTE | 2022-08-20 03:40 | NUR ---
PT RR AND HR ELEVATED. PRN ANALGESIA ADMINISTERED.
--- NOTE | 2022-08-20 04:07 | NUR ---
PT REPOSITIONED, ORAL CARE PERFORMED AND ETT ROTATED TO L. SIDE OF MOUTH.
--- NOTE | 2022-08-20 05:30 | NUR ---
PT'S HR NOTED BETWEEN 130 TO 150. BP STABLE. LAB CALLED TO REPORT CRITICAL WBC OF 31. PLT IMPROVED TO 51. K OF 3.5, MAG 1.9 AND PHOS 6. CREATNINE IMPROVED FROM 3.63 TO 3.12. RESULTS AND V/S REPORTED TO DR. SRTATTON, NEW ORDERS OBAINED.
--- NOTE | 2022-08-20 07:14 | NUR ---
PT REMAINS INTUBATED WITH RASS SCORE BETWEEN -4 TO -5. PT IS WITH NO SEDATION OR ANALGESIA GTT AT THIS TIME. UNABLE TO ELICIT A GAG OR COUGH REFLEX. THIS REMAINS UNCHANGED. PTS PUPILS ARE PERRL AT 3. PT WILL INTERMITTANTLY CRIMMACE WITH PAINFUL STIMULI. PT NOTED TO BE CHEWING ON BITE BLOCK ONCE THROUGHOUT THE NIGHT. PT DOES NOT FOLLOW COMMANDS AND NO SPONTANEUS MOVEMENT OF EXTREMITIES NOTED. PT HAS BEEN IN A NSR TO A-FIB THROUGHOUT THE SHIFT, MD AWARE. PT NOTED TO CONVERT BACK TO A NSR AROUND 0600. PT HAS REMAINED NORMOTENSIVE AND A-FEBRILE. PT TURNED Q2 HRS TO MAINTAIN SKIN INTEGRITY. PT WITH 150 + CC/HR U/O. COLOSTOMY WITH 300 CC OUTPUT NOTED. ALYSA DRAINS WITH 2-5 CC OUTPUT EACH. PT CONTINUES TO BE EDEMATOUS IN BILATERAL UPPER AND LOWER EXTREMITIES. LABS: IMPROVED CREATNINE FROM 3.63 TO 3.12. K 3.5, PHOS 6 AND MAG 1.9. PT WITH CRITICAL WBC OF 31. DIGOXIN ADMINISTERED PER MD ORDER FOR A-FIB. MAG REPLACED WITH 2 GRAMS. K REPLACED WITH 40 MEQS. PLT COUNT IMPROVED TO 51 AND H/H IMPROVED TO 9.2/25 FROM 8.2/24.
--- NOTE | 2022-08-20 08:15 | NUR ---
THIS RN NOTIFIED MD STRATTON THAT PATIENT WENT INTO BIGEMENY AND HAS REMAINED IN IT FOR 5 MINS. PATIENTS APICAL PULSE IS 55 AND HEART MONITOR READS 100. THESE BEATS ARE NON-PROFUSING BEATS. NO NEW ORDERS AT THIS TIME.
--- NOTE | 2022-08-20 08:22 | NUR ---
ASSESSMENT COMPLETE. PT REMAINS ON VENT, SETTING FIO2 50%, PEEP 16. PT 02SAT 91%. RASS -4. PT DOES NOT OPEN EYES OR RESPOND TO EYE OPENING. PUPILS EQUAL, SLUGGISH. PT MINIMALLY RESPONSIVE WITH FACIAL GRIMACE TO ABD PALPATION AND REPOSITIONING. PT HR ON MONITOR 100 IN BIGEMINY, RADIAL PULSE 50. DR STRATTON NOTIFIED BY AD AMADO. BP STABLE. CLEAR, DIM LUNG SOUNDS HEARD THROUGHOUT. OSTOMY EMPTIED, DRAINING BLACK/GREEN STOOL. ALYSA DRAINS X3 WITH MINIMAL SEROSANGINOUS DRAINAGE NOTED. MIDLINE INCISION WITH EMA AND STERI STRIPS, OPEN TO AIR WITH SCANT AMOUNT SEROSANGINEOUS DRAINAGE NOTED. G TUBE FLUSHED AND PATENT, SMALL AMOUNT GREEN DRAINAGE. 3+ EDEMA NOTED TO BLE AND BUE. NAM HOSE PLACED AND SCDS TO BLE. BUE ELEVATED ON PILLOWS. RT IN ROOM PROVIDING ORAL CARE, ETT 24 AT THE TEETH POSITIONED TO LEFT SIDE. PT REPOSITIONED TO RIGHT SIDE WITH 2 PILLOWS.
--- NOTE | 2022-08-20 08:55 | NUR ---
DR STRATTON IN ROOM. VENT SETTINGS CHANGED FIO2 70%, PEEP 12, VC 16. RR 26.
--- NOTE | 2022-08-20 09:05 | NUR ---
PER AM MEETING PATIENT TO REMAIN ON VENT, NO CHANGES TO DISCHARGE PLAN AT THIS TIME.
--- NOTE | 2022-08-20 11:07 | NUR ---
PT REMAINS ON VEMT-UNRESPONSIVE. FAMILY AND A FRIEND IN VISITING WITH PT, THEY TALK AND READ TO PT. GAVE ENCOURAGEMENT AND BLESSING.
--- NOTE | 2022-08-20 12:06 | NUR ---
MOVED EET TO LEFT SIDE OF MOUTH , ORAL CARE PROVIDED BY RN, NO BREAKDOWN NOTED ON SKIN CHECK EET SECURE 23 @TEETH, PT NOT WAKEFUL AND DOES NOT RESPOND TO STIMULI AT THIS POINT , RN REPORTED NO SEDATION HAD BEEN GIVEN TODAY , SHE WAS GOING TO PROVIDED PAIN MEDICATION THIS AFTERNOON
--- NOTE | 2022-08-20 12:22 | NUR ---
ASSESSMENT COMPLETE, RASS -4. PT NONRESPONSIVE TO VERBAL OR PAIUNFUL STIMULI, SLIGHTLY OPEN EYES WITH REPOSITIONING. PT PROVIDED BED BATH, PERICARE, ORAL CARE, LINEN CHANGE. PT REPOSITIONED TO LEFT SIDE WITH TWO PILLOWS. REDDENED AREA TO LEFT UPPER BACK BLANCHABLE, ALLEVYN PLACED. ALLEVYN TO COCCYX CDI. VENT SETTING REMAIN THE SAME, O2 SAT 94%. TEDHOSE PLACED ON BUE.
--- NOTE | 2022-08-20 12:31 | NUR ---
BEDBATH PROVIDED, ALEXANDER AND SKIN CARE PROVIDED. POWDER AND SKIN PROTECTANT APPLIED IN FOLDS OF SKIN. PILLOWS UNDER ARMS, SCDS AND NAM HOSE ON. VENT PROTECTED DURING ACTIVITY. PATIENT POSITIONED ONTO HER LEFT SIDE.
--- NOTE | 2022-08-20 12:32 | NUR ---
THIS RN WILL BE RESUMING TOTAL PATIENT CARE AT THIS TIME. PATIENT RESTING IN BED WITH PILLOW SUPPORT. ORAL CARE PROVIDED. PATIENT REMAINS UNRESTRAINED D/T PATIENTS RASS SCORE. PATIENT REMAINS UNRESPONSIVE. PATIENT DOES GRIMACE WITH STIMUL, BUT NO RESPONSE IN HER EXTREMITIES. PATIENT WILL SLIGHTLY OPEN EYES WITH TUTRNING, BUT WILL NOT FOLLOW COMMONANDS OR TRACK WITH HER EYES. PATIENTS PUPILS ARE SLUGGISH TO LIGHT RESPONSE WHICH IS A CHANGE FROM YESTERDAY.
--- NOTE | 2022-08-20 13:53 | NUR ---
THIS RN IN TO UPDATE FAMILY AT THE BEDSIDE OF CURRENT PLAN OF CARE. MD ORLANDO HAS NOT BEEN IN TO SEE THE PATIENT TODAY. PATIENT IS RESTING ON HER SIDE WITH PILLOW SUPPORT. VENTILATOR SETTINGS REMAIN UNCHANGED.
--- NOTE | 2022-08-20 15:00 | NUR ---
PATIENT REPOSITITONED ONTO HER RIGHT SIDE, PILLOWS SUPPORTING IN BACK AND UNDER ARMS, AND BETWEEN LEGS. PEROSNAL TENNIS SHOES ON AT THIS TIME FOR FOOT/ANKLE SUPPORT. VENT PROTECTED DURTING ACTIVITY. BROTHER IN ROOM
--- NOTE | 2022-08-20 15:38 | NUR ---
PATIENT REPOSITIONED WITH PILLOW SUPPORT. PASSIVE ROM PROVIDED AND SHOES PLACED ON PATIENT TO HELP WITH FOOT DROP. PATIENT HAS NAM HOSE ON ARMS AND LEGS TO HELP WITH EDEMA. MD STOVERBEE IN TO SEE PATIENT. PATIENT HAS SOME INCREASED REDDNESS TO MIDLINE INCISION AND MORE YELLOWISH/GREEN DRAINAGE PRESENT. PATIENTS STOMA CONTINUES TO BE BLACK IN COLOR. PATIENTS CONTINEUS TO BE A RASS OF -4 OR -5. PATIENT WILL OCCASIONALLY GRIMACE TO PAIN. PATIENT DOES NOT MOVE ANY OF HER EXTREMITIES. PATIENT DOES NOT FOLLOW COMMANDS. PATIENTS PUPILLARY RESPONSE REMAINS SLUGGISH. DISSCUSSED POTENTIAL OF HEAD CT, BUT NO NEW ORDERS AT THIS TIME.
--- NOTE | 2022-08-20 16:15 | NUR ---
RT IN TO ASSESS PATIENT AND PATIETNS BITE BLOCK MISPLACED. PATIENT THEN STARTED TO BITE ON TUBE. TONGUE DEPRESSER USED WHILE RT RESECURED BITE BLOCK. PATIENT GIVEN FENTANYL AT THIS TIME. MD WAS IN THE UNIT A TTHIS TIME AND IN TO SEE PATIENT. NOXIOUS STIMULI DONE AND P[ATIENT ONLY OCC. GRIMACE TO STIMUL. NO OTHER RESPONSE NOTED.
--- NOTE | 2022-08-20 17:40 | NUR ---
PATIENTS TPN FINISHED AND SWICHED TO NEW BAG. PATIENT REPOSITIONED WITH PILLOW SUPPORT. PATENTS SHOES IN PLACE AT THIS TIME TO HELP PREVENT FOOT DROP. PATIENTS COGNITION REMAINS UNCHANGED. PATIENTS SPO2 IS 93% ON 50% FIO2 AND A PEEP OF 12. PATIENTS PIP IS 27. PATIENT REMAINS UNRESTRAINED D/T NO ACTIVITY/MOVEMENT. PATIENT IN AN UPRIGHT 45 DEGREE ANGLE TO HELP PREVENT ASIPIRATION ISSUES.
--- NOTE | 2022-08-20 18:46 | NUR ---
PATIENTS I&O'S DONE. PATIENTS ALYSA DRAINS HAVE MINIMAL OUTPUT. G-TUBE TO GRAVITY AND EMPTIED. OSTOMY SITE REMAINS BLACK WITH DARK GREEN FLUID PRESENT IN OSTOMY BAG. PATIENTS LEFT ARM IS CONTINUING TO LEAK SEROUS FLUID. CHUCKS PAD IN PLACE. PATIENTS VENTILATOR SETTINGS CHANGED TO 50% FIO2 AND 12 PEEP BY RESPIRTATORY THERAPIST.
--- NOTE | 2022-08-20 20:19 | NUR ---
Received report from INGRIS Moura; all questions and concerns were addressed at this time, went in to assess pt together and checked neuro responses, pupils are sluggish and no withdrawl to pain, mininally responsive to vigorous stimuli, g-tube set to gravity, producing green-bile, eric drains producing minimal output, urinary catheter output is adequate, pt being diuresed with lasix, stoma is black in color but producing green output, MD aware of appearance; will continue to monitor and notify provider with any changes in pt status.
[2022-08-21] VITALS (15 sets, daily range): BP systolic 124–160; BP diastolic 48–96
--- NOTE | 2022-08-21 06:18 | NUR ---
NO SIGNIFICANT CHANGES OVER HSE ADVISOR, PT IS STILL SHOWING NO PURPOSEFUL MOVEMENT TO STIMULI, NO GAG BUT COUGH PRESENT, PT IN AND OUT OF BI AND TRIGEMINY, BP STABLE, AFEBRILE, STOMA REMAINS DARK IN COLOR, OUTPUT FROM OSTOMY INCREASED AND IS DARK GREEN IN COLOR, VENT SETTINGS REMAINED UNCHANGED, WILL CONTINUE TO MONITOR AND NOTIFY PROVIDER WITH ANY CHANGES IN PT STATUS.
--- NOTE | 2022-08-21 06:36 | NUR ---
CALLED TO REPORT LAB RESULTS, LACTIC 2.1 THIS MORNING, POTASSIUM 3.3 ALSO NO CBC WAS ORDERED FOR THIS MORNING, STATED THAT HE WOULD LIKE ONE DRAWN, WILL DRAW AND HAVE SENT DOWN TO LAB
--- NOTE | 2022-08-21 07:30 | NUR ---
REPORT RECIEVED FROM GREEN MEAT GRADER INGRIS MARTIN. PER REPORT PATIENT REMAINS ON VENTILATOR. PEEP 12, FIO2 50. PER REPORT PATIENTS BITE BLOCK WAS REMOVED. PATIENT REMAINS UNRESTRAINED D/T RASS -4 TO -5.
--- NOTE | 2022-08-21 09:15 | NUR ---
THIS RN IN O DO AM MEDICATIONS AND NOTED CENTRAL LINE DISPLACEMENT. MD ORLANDO NOTIFED. BLOOD RETURN IN MEDIAL PORT ONLY. NEW ORDERS FOR A CHEST XRAY TO CONFIRM PLACEMENT.
--- NOTE | 2022-08-21 09:30 | NUR ---
PATIENTS ASSESSMENT COMPLETED. STUDENT RN IN WITH THIS RN TO ASSIST. INTAKE AND OUTPUT DONE. PATIENT BITING ON EET AT TIMES. PATIENT ALSO NOTED TO HAVE A LEAK AROUND EET CUFF. PER RT CUFF IS HOLDING AT 30 AND DOES NOT APEPAR TO BE LEAKING. ORAL CARE PROVIDED. PATIENT REPSOTITIONED WITH PILLOW SUPPORT. PATIENT HAS NAM HOSE ON ARMS AND LEGS. SCD'S IN PLACE ON PATIENTS CALFS. PATIENT IN AND OUT OF BIGEMENY AND AT TIMES NOTED TO NOT HAVE PERFUSING PVCS. MD STRATTON IS AWARE. PATIENT REAMINS WITH A NEURO STATUS OF -4 TO -5 WITH NO SEDATION. PATIETNS LUNGS ARE CLEAR. BOWEL TONES ABSENT. STOMA SITE REMAINS BLACK WITH DARK GREEN OUTPUT NOTED IN G-TUBE DRAIN AND OSTOMY.
--- NOTE | 2022-08-21 10:00 | NUR ---
PATIENT BITING MORE ON EET AND CAUSING APNEA EPISODES. THE FINAL TIMES PATIENTS SPO2 DROPPED TO 88%. INCREASED FIO2 TO 70% AND NOTIFIED ET. RT IN TO PLACE NEW BITE BLOCK WITH THIS RN'S ASSSITANCE. PATIENT WAS GIVEN FENTANYL PRIOR TO SEE IF THIS HELPED PATIENT WITH OCC. GRIMACING AND LESSEN BITTING THE TUBE. THIS RN, STUDENT, AND COMPENSATOR IN TO DO BEDBATH.
--- NOTE | 2022-08-21 10:06 | NUR ---
CCU STAFF, SN AND RT JOYCE BUSY CARING FOR PT. CONNECTED WITH FAMILY STANDING IN VELA. GAVE ENCOURAGEMENT PT STILL ON VENT. WILL FOLLOW
--- NOTE | 2022-08-21 11:30 | NUR ---
PATIENT BEDBATH COMPLETED. PATIENT TOELRATED WELL, BUT DID HAVE SOME RHYTH, CHANGES WITH MORE ECTOPY AFTER RESTING FROM BED BATH. PATIENT HAS SEVERAL NOTED BLISTERS ON SKIN IN SKIN FOLD LOCATIONS. STRATTON IN TO REVIEW HER SKIN ON HER BACK SIDE. BLISTER ON COCCYX POPPED. NEW ALLYVN PLACE AND ORDERS FOR WOUND CARE CONSULT WILL BE PLACED. PATIENT HAS ANOTHER BLANCHABLE SPOT ON HER MID BACK THAT STAFF HAVE BEEN MONITORING. PATIENT REPOSITIONED WITH PILLOW SUPPORT. PATIENTS SHOES PLACED TO HELP PREVENT FOOT DROP. PATIENTS HEELS ARE IN C/D/I WITH NO REDDNESS NOTED. PATIENT SUCTIONED. NOTIFIED OF MD ORLANDO OF X-RAY RESULTS. LINE IS PATENT, BUT IS OUT 1.5CM FROM PRIOR X-RAY. MD WILL BE IN TO PLACE NEW LINE OR RESECURE EXISTING LINE.
--- NOTE | 2022-08-21 12:30 | NUR ---
PATIENT REPOSITIONED WITH PILLOW SUPPROT. ASSESSMENT REMAINS UNCHANGED. PATIENTS SISTER IN THE AM TO SIT AND READ TO THE PATIENT. PATIENT AIR LEAK REMAINS. RT AND MDS AWARE.
--- NOTE | 2022-08-21 13:15 | NUR ---
MD ORLANDO IN TO DO EXCHANGE ON CENTRAL LINE. ANNITA AND THIS RN AT THE BEDSIDE TO ASSIST PATIENT.
--- NOTE | 2022-08-21 14:00 | NUR ---
MD ORLANDO COMPLETED THE CENTRAL LINE EXCHANGE. ALL PORTS DRAWING BACK BLOOD. PATIENT TOLERATED WELL WITH NO REACTION TO STIMULUS. PATIENT REPOSITONED.
--- NOTE | 2022-08-21 14:12 | NUR ---
PATIENT REMAINS NPO. TPN INFUSING DAY 5 TODAY. THE TPN IS NOW 2 L OF 15% DEXTROSE, 5% AMINO ACIDS, AND 500 ML 20% LIPIDS (M-W-F) PROVIDING AN AVERAGE OF 1,848 CALORIES AND 100 GM PROTEIN PER 24 HOURS. MY RECOMMENDATIONS WERE TAKEN AND CHANGED, PATIENT NOW RECEIVING 350 MORE CALORIES AND 25 MORE GRAMS OF PROTEIN PER 24 HOURS WHICH WILL AID IN THE HEALING PROCESS FROM SURGERY. 15 UNITS OF INSULIN IN THE TPN. BUN/CREAT ARE STILL ELEVATED BUT CREATININE IS IMPROVING. NO OTHER CHANGES RECOMMENDED AT THIS TIME. WILL CONTINUE TO MONITOR.
--- NOTE | 2022-08-21 14:59 | NUR ---
MATHEW WITH RT AT THE PATIENTS BEDSIDE TO DO THE EEG.
--- NOTE | 2022-08-21 16:00 | NUR ---
PATIENT RESTING IN BED, EYES CLOSED AND VENT IN PLACE. ALEXANDER AND PEG TUBE EMPTIED.
--- NOTE | 2022-08-21 18:30 | NUR ---
PATIENT REPOSITIONED TO RIGHT SIDE WITH PILLOW SUPPORT. PATIENTS HEEL PROTECTORS REPLACED. PATIENT HAS NAM HOSE AND SCDS IN PLACE. PATIENTS HAIR REWASHED THIS AFTERNOON D/T EEG WAX. PATIENTS FAMILY IN AT THE BEDSIDE AND UPDATED ON PLAN OF CARE.
--- NOTE | 2022-08-21 19:40 | NUR ---
Received report from INGRIS Moura; all questions and concerns were addressed at this time, EEG was done today, pending results, electrolytes were replaced and cardiac function has improved, no other significant changes over day shift, will continue to monitor; family is at bedside currently; will notify provider with any changes in pt status
[2022-08-22] VITALS (16 sets, daily range): BP systolic 102–145; BP diastolic 41–86
--- NOTE | 2022-08-22 07:16 | NUR ---
no significant changes, no visual response to stimuli, ST, HR 100s, afebrile, pupils are sluggish but reactive, stoma is still dark in color, report was given to INGRIS Moses and care was transferred at this time.
--- NOTE | 2022-08-22 08:09 | NUR ---
PT ASSESSED AND FOUND TO BE LAYING IN HOSPITAL BED, UNRESPONSIVE ON A VENTILATOR. SAFETY CHECK PERFORMED, ALARM LIMITS SET. PT DOES NOT FOLLOW COMMANDS AND UNABLE TO ELICIT A COUGH OR GAG REFLEX. PT WITH DISCONJUGATE BUT REACTIVE PUPILS. PT RESPONDS TO PAINFUL STIMULI WITH A GRIMMACE ONLY. PT IS COMPLIANT WITH VENTILATOR. BASELINE V/S OBTAIEND. PT WITH EQUAL AND BILAT CHEST RISE WITH DIMINISHED LS. BED ALARM SET.
--- NOTE | 2022-08-22 08:53 | NUR ---
critical lab called from lab, wbc 35.3, notified with primary rn chely at bedside.
--- NOTE | 2022-08-22 09:36 | NUR ---
PT NOTED TO BE IN A-FIB. BP STABLE, MD AWARE.
--- NOTE | 2022-08-22 09:40 | NUR ---
PT WITH CRITICAL WBC COUNT OF 35.3. PT NOTED TO BE FEBRILE. DR. STUART CONSULTED REGARDING NEW ONSET A-FIB, CRITICAL WBC COUNT AND FEVER. NO NEW ORDERS OBTAINED AT THIS TIME.
--- NOTE | 2022-08-22 11:23 | OR ---
[facility] [address], [place] [address] Signed DATE OF OPERATION: 08/21/2022 SURGEON: Juarez Orlando MD PREOPERATIVE DIAGNOSIS: Dislodged left subclavian triple-lumen catheter. POSTOPERATIVE DIAGNOSIS: Dislodged left subclavian triple-lumen catheter. PROCEDURE: Replacement of left subclavian central line (over the wire technique). ANESTHESIA: Intravenous sedation. INDICATION: A 77-year-old white woman underwent replacement of a left subclavian central line on 08/19/2022. In the meantime, she has had dislodgement of the central catheter having been withdrawn unintentionally. Chest x-ray shows it to be in the junction of the innominate vein and superior vena cava. On the basis of these findings, exchange engineer wire was recommended. FINDINGS: Dark nonpulsatile blood was noted from the left subclavian site. Catheters were placed without problem and was highly functional. A chest x-ray confirms good position in the superior vena cava. DESCRIPTION OF PROCEDURE: In the supine position, the left infraclavicular area was prepared with a Betadine solution copiously and then draped sterilely. Using sterile gown, glove, mask, etc, sterile drape was applied over the operative site. Using the Arrow triple-lumen power central catheter, the sutures were removed from the site and the catheter withdrawn a few cm and occluded with a hemostat. The catheter was transected with an 11 blade. The dominant distal site was identified and a flexible J-wire passed down that site. The catheter was then removed over the wire without problem. Copious bleeding was noted around the site from which the wire exited. The previously inspected and irrigated Arrow blue power triple-lumen catheter was passed over the wire through the distal port. The catheter secured into position after withdrawing a cm or two. Multiple of security were made with the enclosed suture. An dressing was applied to the Electronically Signed By: JUAREZ ORLANDO MD 08/22/22 1123 PATIENT NAME: XAVIER SOARES OPERATIVE REPORT DATE OF : 41 REPORT #: [id number] PHYSICIAN: JUAREZ ORLANDO MD PCP: SHERMAN GEORGE MD REPORT IS CONFIDENTIAL AND NOT TO BE RELEASED WITHOUT AUTHORIZATION [address] [address] Signed site. A chest x-ray was then performed which showed good position of the catheter. MD TIFFANIE Cormier/MODL /[id number] cc: MD Sherman Aguilar MD Copies: JENNY STRATTON MD, MALCOLM MD ~ Electronically Signed By: JUAREZ ORLANDO MD 08/22/22 1123 PATIENT NAME: XAVIER SOARES OPERATIVE REPORT DATE OF : 41 REPORT #: [id number] PHYSICIAN: JUAREZ ORLANDO MD PCP: SHERMAN GEORGE MD REPORT IS CONFIDENTIAL AND NOT TO BE RELEASED WITHOUT AUTHORIZATION
--- NOTE | 2022-08-22 11:23 | OR ---
[facility] [address], [place] [address] Signed DATE OF OPERATION: 08/12/2022 SURGEON: Juarez Orlando MD PREOPERATIVE DIAGNOSES: Severe systemic sepsis, generalized peritonitis and free intraperitoneal air. POSTOPERATIVE DIAGNOSES: 1. Severe systemic sepsis, generalized peritonitis and free intraperitoneal air. 2. Generalized fecal contamination related to perforated sigmoid diverticular disease. 3. Acute acalculous cholecystitis. PROCEDURES: 1. Attempted right internal jugular and left subclavian central venous catheterization (failed due to inability for wire passage). 2. Laparotomy with drainage of multiple fluid collections in the peritoneal cavity with peritoneal lavage. 3. Left colectomy and sigmoidectomy with end colostomy (Santosh's procedure). 4. Open cholecystectomy without cholangiogram. 5. Placement of a 22-Icelandic MATT gastrostomy tube. ASSISTANTS: ANESTHESIA: General endotracheal, Sang Schaefer CRNA. INDICATION: This 77-year-old white woman presented late in the evening to [place] emergency room with severe generalized peritonitis. I was called at approximately 12:30 a.m. After evaluation, showed the patient to have generalized peritonitis and a CT scan showed generalized free air with intra-abdominal inflammatory changes, dilated bowel and so on. The patient is known to me of having been hospitalized a few weeks ago with fecal impaction and possible stercoral colitis, which cleared rapidly with nonoperative measures. The patient is usually quite verbal and interactive and upon presentation was in significant septic condition with elevated lactic acid greater than 4 and normal white count and significant tachycardia. Electronically Signed By: JUAREZ ORLANDO MD 08/22/22 1123 PATIENT NAME: XAVIER SOARES OPERATIVE REPORT DATE OF : 41 REPORT #: [id number] PHYSICIAN: JUAREZ ORLANDO MD PCP: SY GEORGE MD REPORT IS CONFIDENTIAL AND NOT TO BE RELEASED WITHOUT AUTHORIZATION [facility] [address], [place] [address] Signed She has been fluid resuscitated, given broad-spectrum antibiotic and placement of Lemons catheter showing anuria prior to operation with 3 L of crystalloid solution infused. She is taken to operation at this time to undergo the source control of her sepsis, most likely perforated diverticulitis. The patient to some degree and her to a full degree understand the risk of bleeding, infection, failure to cure the problem, given her advanced septic condition and almost certainly need for decompressive colostomy. Understand this, they wished to proceed. FINDINGS: Attempted right internal jugular venous catheterization and subsequently left subclavian catheterization by me was unsuccessful despite multiple attempts to do so and easy access to the internal jugular and left subclavian vein. Passage of the wire would not go beyond the area of the superior vena cava for whatever reason. Attempts at additional peripheral IV by the compensation vice president were unsuccessful as well as placement of arterial line. The patient's abdomen is quite markedly distended. A Lemons catheter was in place. Sequential compression device stockings were used and preoperative antibiotic Unasyn administered. The abdomen was prepared with chlorhexidine solution and draped sterilely. An incision was made cephalad to the umbilicus and extended to the symphysis pubis. Upon entry to the abdomen, copious amounts of inflammatory fluid and grossly fecal contaminated fluid was noted. The bowel was quite markedly inflamed and actually appeared ischemic in appearance. Initiation of fluids as well as a phenylephrine drip converted ultimately to drip was undertaken by the compensation vice president. The small bowel had multiple interloop fluid collections and fibrinous peel throughout. The perforated viscus has been present for far more than 12 hours more likely 48 hours in my opinion. The multiple fluid loops were broken down between the small bowel loops and suctioned free. Gram stain and cultures were obtained of the peritoneal fluid. Small bowel was more fully eviscerated allowing for intra-abdominal examination more fully. In the sigmoid colon, there was a dense phlegmon and ultimately found to be the perforation related to perforated diverticulitis. The gross perforation was oversewn with a silk suture. Quite clearly, sigmoid resection would be necessary. The sigmoid was free from the pelvic wall and left lateral abdominal wall using blunt and electrocautery dissection freeing the left colon and sigmoid to the midline. The colon was quite compromised up to the upper portion of left colon. Splenic flexure was mobilized with electrocautery, though was not terribly difficult to do so. A viable segment of left transverse colon was identified. This was chosen as site for transection. The mesentery to the left colon and sigmoid and upper rectum was incised with electrocautery and the vascular pedicle secured with 0 silk ties. A LEANN stapling device was used to transect the left Electronically Signed By: JUAREZ ORLANDO MD 08/22/22 1123 PATIENT NAME: XAVIER SOARES OPERATIVE REPORT DATE OF : 41 REPORT #: [id number] PHYSICIAN: JUAREZ ORLANDO MD PCP: SY GEORGE MD REPORT IS CONFIDENTIAL AND NOT TO BE RELEASED WITHOUT AUTHORIZATION [address] [address] Signed transverse colon as well as the upper rectum. The specimen was passed for pathology. Irrigation was undertaken more fully. Additional breakdown of loculated fluid collections undertaken between the bowel loops. Quite clearly the small bowel loops appeared quite inflamed and in some ways ischemic, but they were viable and pinching of the small bowel did show peristalsis. Additional examination showed the liver to be normal. The gallbladder was quite markedly distended and very inflamed. I could not palpate stones within it. The stomach itself though grossly contaminated was normal. The spleen was palpably normal. A circular segment of skin was excised in the left upper quadrant and through the left rectus muscle in the standard technique with a cruciate incision in the anterior rectus sheath and posterior rectus sheath. The remaining segment of the left colon was delivered through the abdominal wall. It was secured with a Arthur clamp and a single silk suture in the inner table of the abdominal cavity. Cleansing of the peritoneal cavity with saline was undertaken more fully until there were no actual purulent or fecal pockets anymore. Three stab incisions were made, one in the right lower quadrant, two in the left lower quadrant to allow for placement of 7 mm flat Reginald drains which were secured to the skin with nylon suture. A Bookwalter retractor was attached to the table and further inspection of the gallbladder undertaken. The gallbladder, though not the primary source of the problem, was quite markedly distended and inflamed and quite likely to cause hazard postoperatively. On that basis, cholecystectomy was undertaken. The apex of the gallbladder was grasped with a ring clamp and the peritoneal incised with electrocautery and was dissected free from the liver completely. The cystic arterial branch was doubly clipped and divided and the cystic duct itself was secured with a silk tie and two additional small clips. Mindful that she will likely have a prolonged course. The anterior wall of the stomach was delivered to the wound site and G-tube performed. This included passage of a 22-Icelandic MATT gastrostomy tube through the left upper quadrant into the peritoneal cavity, a pursestring suture of the anterior wall of the stomach and entry through the anterior serosal aspect of the stomach with electrocautery. The stomach contents were suctioned free and a pursestring suture had been placed around the site of puncture for the stomach with 3-0 silk. The G-tube was placed into the stomach and the pursestrings then secured. Anterior wall of stomach was secured, the peritoneal lining of the anterior abdominal wall with interrupted 3-0 silk suture. The balloon insufflated and withdrawn and the flange used to secure it more fully. Testing of the G-tube showed no Electronically Signed By: JUAREZ ORLANDO MD 08/22/22 1123 PATIENT NAME: XAVIER SOARES OPERATIVE REPORT DATE OF : 41 REPORT #: [id number] PHYSICIAN: JUAREZ ORLANDO MD PCP: SY GEORGE MD REPORT IS CONFIDENTIAL AND NOT TO BE RELEASED WITHOUT AUTHORIZATION [facility] [address] [place] [id number] Signed sign of leakage or other problem. Plans were then made for closure. Drains were placed along the left and right paracolic gutter areas and one deep in the depths of the pelvis. The small bowel quite inflamed and somewhat ischemic in appearance was quite notable. Ischemic changes were noted of the uterus and tubes bilaterally as well, indicative of her significant low-flow state. The midline fascia was reapproximated with running bidirectional #1 PDS suture. The subcutaneous tissue irrigated and the skin closed with clips. After covering of the midline wound with an Acticoat dressing, the left upper quadrant end colostomy was matured with interrupted 3-0 Vicryl sutures. The mucosa was marginal but viable. An ostomy appliance was applied. The drains were attached to bulb suction. The patient was ultimately transferred to the intensive care unit for further management. Blood loss was less than 100 mL. Sponge, needle and instrument counts were reported as correct x3. The operation was prolonged, complicated, and difficult but was accomplished safely. MD TIFFANIE Cormier/MODL /[id number] cc: MD Marilyn Lebron MD Copies: SY GEORGE MD, KELLY MD ~ Electronically Signed By: JUAREZ ORLANDO MD 08/22/22 1123 PATIENT NAME: XAVIER SOARES OPERATIVE REPORT DATE OF : 41 REPORT #: [id number] PHYSICIAN: JUAREZ ORLANDO MD PCP: SY GEORGE MD REPORT IS CONFIDENTIAL AND NOT TO BE RELEASED WITHOUT AUTHORIZATION
--- NOTE | 2022-08-22 11:23 | OR ---
[facility] [address] [place], [place] [address] Signed DATE OF OPERATION: 08/19/2022 SURGEON: Juarez Orlando MD PREOPERATIVE DIAGNOSES: 1. Persistent sepsis. 2. Indwelling left subclavian Arrow triple-lumen central venous catheter. POSTOPERATIVE DIAGNOSES: 1. Persistent sepsis. 2. Indwelling left subclavian Arrow triple-lumen central venous catheter. PROCEDURE: Placement of left subclavian central venous catheter (over the wire exchange). ANESTHESIA: Intravenous sedation (patient ventilated). DESCRIPTION OF PROCEDURE: In the supine position, the area of the subclavian line was prepared with a chlorhexidine solution and draped sterilely. Sterile drape was applied over the operative area. Per hospital protocol with glove gown, mask etc. Hemostat was applied to the catheter after freeing the sutures and secured to the chest wall. The clamp was used to secure the catheter and the catheter transected. The distal port lumen was easily identified and a flexible J-wire from the Arrow triple-lumen catheter kit was passed down the distal port and the catheter withdrawn over the wire. There was a fair amount of retrograde dark oozing blood from the area and the gauze was applied to the area. The previously inspected Arrow power type triple-lumen catheter which had been flushed with saline was passed over the wire without problem. Wire extracted from the distal port site and the catheter advanced. Aspiration on the distal port showed dark nonpulsatile blood, easily flushed with saline solution. The catheter was withdrawn a few cm and the enclosed collar device applied with the enclosed suture. A protective gel based adhesive dressing was applied over the site after the catheter was secured. All port sites were easily able to withdraw dark nonpulsatile blood and easily flushed with saline solution. A postprocedure chest x-ray showed good position with no evidence of pneumothorax or complication. Electronically Signed By: JUAREZ ORLANDO MD 08/22/22 1123 PATIENT NAME: XAVIER SOARES OPERATIVE REPORT DATE OF : 41 REPORT #: [id number] PHYSICIAN: JUAREZ ORLANDO MD PCP: SHERMAN GEORGE MD REPORT IS CONFIDENTIAL AND NOT TO BE RELEASED WITHOUT AUTHORIZATION [address] [address] Signed MD TIFFANIE Cormier/MODL /[id number] cc: MD Sherman Aguilar MD Copies: JENNY STRATTON MD, MALCOLM MD ~ Electronically Signed By: JUAREZ ORLANDO MD 08/22/22 1123 PATIENT NAME: XAVIER SOARES OPERATIVE REPORT DATE OF : 41 REPORT #: [id number] PHYSICIAN: JUAREZ ORLANDO MD PCP: SHERMAN GEORGE MD REPORT IS CONFIDENTIAL AND NOT TO BE RELEASED WITHOUT AUTHORIZATION
--- NOTE | 2022-08-22 11:30 | NUR ---
PT TRANSFERRED TO CT WTIH RT, AND SECOND RN PRESENT. CT PERFORMED AND PT TRANSFERRED BACK TO WITHOUT PROBLEMS. PT REASSESSED WITH NO NOTED CHANGES IN PTS CONDITION.
--- NOTE | 2022-08-22 12:31 | NUR ---
TOOK PT TO CT. BAGGED PT ON 10L/MIN 100% FIO2 WITH A PEEP OF 12. ONCE IN CT SCAN, PLACED PT ON VENTILATOR DURING TESTING. BAGGED PT BACK TO ROOM AND PUT PT BACK ON VENTILATOR WITH PREVIOUS SETTINGS. SPO2 WAS 97% ON 60% FIO2. DECREASED FIO2 TO 50%. CHECK ET TUBE PLACEMENT AND IT WAS 23 AT THE TEETH. CUFF PRESSURE 30 WHICH IS WHERE LEAK IS MINIMIZED.
--- NOTE | 2022-08-22 16:52 | NUR ---
PT CONVERTED BACK A NSR AT 1652. V/S UNCHANGED.
--- NOTE | 2022-08-22 18:11 | NUR ---
PT REMAINS INTUBATED, NON-SEDATED WITH A RASS OF -5. PT CONTINUES TO HAVE DISCONJUGATE PUPILS, AND MINIMALLY RESPONSIVE WITH A GRIMMACE TO PAINFUL STIMULI. PT WITH INCREASED LEVELS OF SPONTANEOUS MOVEMENT NOTED IN R. UPPER EXTREMITY. PT DOES NOT FOLLOW COMMANDS, GCS OF 4: PT OCCASIONALY OPENS EYES WITH PAINFUL STIMULI. PT HAS BEEN IN AND OUT OF A NSR TO A-FIB AND BACK INTO A NSR AT 1650. PT WITH RUNS OF VENTRICULAR BIGEMINY AND MULTI-FOCAL PVCS. BP REMAINS NORMOTENSIVE AND PT INITIALLY FEBRILE IN AM, HOWEVER, HAS BEEN A-FEBRILE THROUGHOUT THE REMAINDER OF THE DAY. VENTILATOR SETTINGS REMAIN UNCHANGED. SBT ATTEMPTED BY RT, HOWEVER, PT FAILED D/T TACHYPNEA AND INCREASED WORK OF BREATHING. PT WITH ADEQUATE U/O. 150 CC OF STOOL NOTED IN COLOSTOMY AND 150 CC NOTED IN G-TUBE. ALYSA DRAINS WITH MINIMAL OUTPUT. PT WITH ADEQUATE U/O. WBC CONTINUES TO CRITICALLY ELEVATED. ABX CHANGED AND NEW BC DRAWN. CT RESULTED, MD AWARE. DR. STUART CONSULTED REGARDING REFERRAL TO DONOR LINE, HOWEVER, FIRMLY ADVISED NOT AT THIS TIME.
--- NOTE | 2022-08-22 19:53 | NUR ---
RECEIVED REPORT FROM INGRIS HERNANDEZ; NO SIGNIFICANT CHANGES OVER DAY SHIFT, CONTINUES TO HAVE MINIMAL RESPONSE TO STIMULI, NO GAG, COUGHS WITH INLINE SUCTION, PT IN AND OUT OF BIGEMINY, CT OF HEAD AND ABDOMEN TODAY (SEE REPORTS FOR RESULTS), MIDLINE INCISION REDDENED, STOMA STILL BLACK IN COLOR, OUTPUT REMAINS THE SAME, ALYSA DRAINS CONTINUE TO HAVE MINIMAL OUTPUT, URINARY OUTPUT ADEQUATE, PT BEING DIURESED WITH LASIX; WILL CONTINUE TO MONITOR AND NOITFY PROVIDER WITH ANY CHANGES IN PT STATUS.
[2022-08-23] VITALS (16 sets, daily range): BP systolic 111–155; BP diastolic 50–84
--- NOTE | 2022-08-23 06:34 | NUR ---
NO SIGNIFICANT CHANGES OVER WET CLEANER MACHINE, PT CONTINUES TO BE IN AND OUT OF BI/TRIGEMENY, PT OPENS EYES TO SOUND BUT DOES NOT TRACK, NO PURPOSEFUL MOVEMENT WITNESSED, PT DESATS WITH BIG TURNS AND TAKES APPROX 30 MIN TO RECOVER WITH 100% O2, COUGHS W/ INLINE SUCTION BUT NO GAG, OSTOMY HAD MINIMAL OUTPUT, ALYSA DRAINS HAD MINIMAL OUTPUT, URINARY OUTPUT ADEQUATE, PT BEING DIURESED W/ SCHEDULED LASIX, WILL CONTINUE TO MONITOR AND NOTIFY PROVIDER WITH ANY CHANGES IN PT STATUS.
--- NOTE | 2022-08-23 08:05 | NUR ---
PT ASSESSED AND FOUND TO BE LAYING IN BED WITH MECHANICAL VENTILATION. PT IS NOT FOLLOWING COMMANDS, AND ONLY GRIMACES WITH PAINFUL STIMULI ON ALL FOUR EXTREMITIES. PT IS WITH NO SEDATION OR ANALGESIA AT THIS TIME. PT OPENS EYES WITH VERBAL STIMULI BUT IS NOT VISUALLY TRACKING AND DOES NOT RESPOND TO VISUAL THREAT. PT WITH DISCONJUCATE PUPILS, BUT BRISK AND REACTIVE TO LIGHT. VENTILATOR SETTINGS AND ETT CHECKED FOR PLACEMENT AND AIRLEAK. PT WITH COARSE TO DIMINISHED LS THROUGHOUT. SAFETY CHECK PERFORMED AND ALARM LIMITS SET. V/S ASSESSED AND SET TO Q- HOURLY.
--- NOTE | 2022-08-23 10:00 | NUR ---
PT BATHED WITH CHG WIPES, AND YOUSUF CARE PERFORMED. PT PLACED IN [facility] GOWN AND LENINS. DRESSINGS CHANGED ON PEG TUBE AND ALYSA DRAIN X 3. PT REPOSITIONED.
--- NOTE | 2022-08-23 13:16 | NUR ---
PT WITH NOTED BRADYCARDIA WITH A HR FLUCTUATING BETWEEN UPPER 30S TO 80S. BP REASSESSED WITH NO CHANGES IN PTS CONDITION. PT ALSO NOTED TO HAVE PERIODS OF BIGEMINY AND PERIODS WITH MULTI FOLCAL PVCS. MD MADE AWARE AND WILL BE AT BEDSIDE FOR FURTHER EVALUATION, EKG ORDERED.
--- NOTE | 2022-08-23 18:32 | EKG ---
[facility] [address] [facility] [place] [address] Signed Sinus rhythm with fusion complexes Low voltage QRS Nonspecific T wave abnormality Abnormal ECG When compared with ECG of 17-AUG-2022 04:35, Sinus rhythm has replaced Atrial fibrillation Minimal criteria for Anterior infarct are no longer present Nonspecific T wave abnormality no longer evident in Inferior leads Confirmed by Bryan Varela MD () on 08/23/2022 6:32:41 PM Electronically Signed By: BRYAN VARELA MD 08/23/22 183 PATIENT NAME: XAVIER SOARES Electrocardiogram DATE OF : 41 PHYSICIAN: BRYAN VARELA MD REPORT #: [id number] REPORT IS CONFIDENTIAL AND NOT TO BE RELEASED WITHOUT AUTHORIZATION
--- NOTE | 2022-08-23 18:33 | EKG ---
[facility] [address] [facility] [place] [address] Signed Sinus rhythm with frequent and consecutive premature ventricular complexes with ventricular escape complexes Nonspecific T wave abnormality Abnormal ECG When compared with ECG of 23-AUG-2022 13:20, fusion complexes are no longer present premature ventricular complexes are now present Sinus rhythm is now with ventricular escape complexes Confirmed by Bryan Varela MD () on 08/23/2022 6:33:04 PM Electronically Signed By: BRYAN VARELA MD 08/23/22 183 PATIENT NAME: XAVIER SOARES Electrocardiogram DATE OF : 41 PHYSICIAN: BRYAN VARELA MD REPORT #: [id number] REPORT IS CONFIDENTIAL AND NOT TO BE RELEASED WITHOUT AUTHORIZATION
--- NOTE | 2022-08-23 19:21 | NUR ---
PT REMAINS INTUBATED, NOT ON SEDATION WITH A RASS OF -4. PT OPENS EYES TO VOICE, BUT DOES NOT VISUALLY TRACK OR RESPOND TO VISUAL THREAT. PERRL, PT WITH NOTED SCLERAL EDEMA. PT GRIMMACES TO VERBAL STIMULI. PT WITH INCRESED SPONTANEUOUS MOVEMENT IN THE R. HAND BUT NO PURPOSEFUL MOVEMENT NOTED. PT HAS BEEN IN A NSR WITH FREQUENT EPISODES OF BIGEMINY. K REPLACED WITH NOTED IMPROVEMENTS IN EPISODES OF BRADYCARDIA AND MULTI-FOCAL PVCS. PT LS CONTINUE TO BE COARSE TO DIMINISHED THROUGHOUT. VT 430, FI02 DOWN TO 40% AND PEEP REMAINS AT 12. PT CONTINUES TO BE COMPLIANT WITH MECHANICAL VENTILATION. PT WITH ADQUATE UO. ALYSA DRAINS AND COLLOSTOMY WITH MINIMAL OUTPUT. G-TUBE WITH 150 CC OUTPUT. PT TURNED Q-2 HRS TO MAINTAIN SKIN INTEGIRTY. ORAL CARE PERFORMED Q-2 HRS TO MAINTAIN SKIN INTEGRITY. TPN CHANGED WITH INCREASE IN INSULIN NOTED. MORNING LABS ORDERED PER TPN PROTOCOL.
--- NOTE | 2022-08-23 19:36 | NUR ---
URINE CULTURE RESULT + FOR HIEN ALBICANS 100,[address]ONY[address] SENSITIVITY NOT REPORT. DR. STUART INFORMED.
--- NOTE | 2022-08-23 20:25 | NUR ---
RECEIVED REPORT FROM INGRIS LEAL, ALL QUESTIONS AND CONCERNS WERE ADDRESSED AT THIS TIME, PT HAD BRADYCARDIC EPISODE TODAY, HR IN THE 30'S, PT WAS NOT HYPOTENSIVE AT THIS TIME, ELECTROLYTE REPLACEMENT WAS GIVEN AND AN EKG WAS OBTAINED, NO OTHER SIGNIFICANT CHANGES WERE NOTED, WILL CONTINUE TO MONITOR AND NOTIFY PROVIDER WITH ANY CHANGES IN PT STATUS.
--- NOTE | 2022-08-23 23:08 | NUR ---
PT CONVERTED BACK INTO AFIB, HR 100-130'S, CALLED , CONCERNS ABOUT BRADYCARDIC EPISODES IF GIVEN ANY ANTIARRHYTHMIC, SAID TO GIVE PRN FENTANYL TO SEE IF THAT HELPS AND CONTINUE TO MONITOR, DAVID COLVIN MD WITH ANY CHANGES IN PT STATUS.
[2022-08-24] VITALS (8 sets, daily range): BP systolic 102–152; BP diastolic 43–74
--- NOTE | 2022-08-24 06:58 | NUR ---
PT SLEPT ON AND OFF, INTERMITTENTLY OPENS EYES BUT DOES NOT TRACK, NON PURPOSEFUL MOVEMENT TO R HAND, PT CONVERTED TO AFIB BUT CONVERTED BACK THIS MORNING, FENTANYL WAS GIVEN TO MANAGER PROGRAM IN ANY PAIN SHE MIGHT BE HAVING, PT COUGHS WITH INLINE SUCTIONING, NO GAG, DOES NOT WITHDRAWAL TO PAIN; PT HAS BEEN BRADYING DOWN TO THE 40'S, MD WAS CALLED AND INFORMED, MIDLINE INCISION IS STAPLED AND HAS STERI-STRIPS, ALYSA DRAINS HAVE HAD MINIMAL OUTPUT, PT CONTINUES TO BE DIURESED WITH LASIX, WILL CONTINUE TO MONITOR AND NOTIFY PROVIDER WITH ANY CHANGES IN PT STATUS.
--- NOTE | 2022-08-24 07:43 | NUR ---
dr pate here no new orders, report from Eun/Mamta caustic cresylate shift superintendent - pt cont. -5 rass score. ward draining wnl to gravity - hr on monitor with pvc and trigemeony - staff reviewing and aware. pt cont. to be full code status.
--- NOTE | 2022-08-24 09:25 | NUR ---
dr pate in room with this rn and pt sister at bedside reading. pt is somulent -5 rass scale on r side with ward draining wnl, gtube flushed with water and wnl - stoma to left side ostomy is dark tissure with dark drainage. eric x3 wnl serosang straw streaked drainage wnl. g tube side wnl with gauze sponge around. pt ett tube secure and 23 at teeth - moved the tube for comfort and prevention with the slide appliance - oral care done. pt eyes are reactive to slight but sluggish - appear round and equal - no reaction to movement, no startle, no tracking, face is washed - pt does not open eyes to stimuli or on command, arms and legs are flaccid, rom with arms and legs during reposisioning. vent wnl continues per rt, tube is secure.
--- NOTE | 2022-08-24 10:28 | NUR ---
mg and kcl started per new orders - family in room dr grimm here to speak with family per request. no pt change. vent 40% fio2, 430 Tv. 16 rr vent, 27 rate on own, 23 pip, 10 peep.
--- NOTE | 2022-08-24 10:30 | NUR ---
PATIENT AND SON TALKING WITH DR. VARELA ON ARRIVAL TO THE UNIT. PATIENT REMAINS ON VENT. DISCHARGE PLAN PENDING PATIENT PROGRESS.
--- NOTE | 2022-08-24 10:40 | NUR ---
dr grimm visiting with family son and pt in [place] for updates. rn present.
--- NOTE | 2022-08-24 11:40 | NUR ---
oral care by this rn done, RT james in to check ett with rn, wnl, noted that gum line is bleeding from tube - repositioned in mouth. mostureizer cream applied. bed bath and new gown, and ward care with help of Yudy BUCHANAN - washed and combed hair, ward care wnl. shoes applied to pt feet with socks for stability and prevention of drop. ROM done with pt. MARILYN setting on vent now to 8. per james in RT. pt just came by again and left again to run errands - pleased with her care and that she was turned to her left side tward the window and sunshine.
--- NOTE | 2022-08-24 13:34 | NUR ---
rn in room to assist with IV -pt was resting with eyes closed. RN said jamie Malave - can you open your eyes for me?? Ananda opened eyes and looked to RN then closed eyes. rn again asked pt to open eyes and she did, then rested with eyes closed. hr 70's. call light in reach.
--- NOTE | 2022-08-24 13:53 | NUR ---
PT ON VENT, NO FAMILY IN AT THIS TIME. WILL FOLLOW
--- NOTE | 2022-08-24 14:09 | NUR ---
pt repositioned to back shoes on feet for positioning, arms rom done, pt again opens eyes breifly when asked to, then rolls eyes and closes lids. skin pwd.
--- NOTE | 2022-08-24 15:51 | NUR ---
ORAL CARE PROVIDED AT THIS TIME. ALEXANDER, G-TUBE AND ALYSA'S EMPTIED AND CHARTED. PATIENT RESTING IN BED, VENT IN PLACE. PATIENT PERIODICALLY OPENS EYES AND LOOKS AROUND. DOES NOT TRACK. OPENED EYES TWICE WHEN NAME WAS CALLED BY THIS [employer] BUSINESS ANALYST. BROTHER AT BEDSIDE.
--- NOTE | 2022-08-24 16:15 | NUR ---
dr grimm here to talke with pt mj and brother about eeg results. pt tpn/lipids with new filters/tubing. central line to left side wnl.
--- NOTE | 2022-08-24 17:10 | NUR ---
repositioned pt to right side, combed hair and rom done with all extremities, skin on back wnl - mepilex in place, shoes on to prevent drop foot.
--- NOTE | 2022-08-24 18:29 | NUR ---
repositioned pt - removed shoes - pt again opens eyes to breif verbal stimuli and quickly closes them without looking at rn, 250 ml urine out in ward -
[2022-08-25] VITALS (9 sets, daily range): BP systolic 107–153; BP diastolic 57–93
--- NOTE | 2022-08-25 04:01 | NUR ---
PT RESTING IN BED, CALM, OCCASSIONAL HAND MOVEMENT BUT NOT RESPONSIVE TO NAME. SPO2 92%, SINUS RHYTHM WITH OCCASSIONAL PVC @ 92BPM. DOOR AND CURTAIN OPEN FOR OBSERVATION.
--- NOTE | 2022-08-25 07:17 | NUR ---
NO SIGNIFICANT CHANGES OVER BIOINFORMATICS COMPUTER SCIENTIST, PT CONTINUES TO OPEN EYES TO SOUND BUT DOES NOT TRACK, GRIMACES TO PAIN BUT DOES NOT WITHDRAWAL, COMPLIANT WITH VENTILATOR AND CONTIUES TO HAVE NO SEDATION, PUPILS ARE PERRL, PERIPHERAL PULSES ARE PRESENT, GENERALIZED EDEMA, BEING DIURESED WITH LASIX, ADEQUATE URINARY OUTPUT, OSTOMY HAS HAD MINIMAL OUTPUT, ALYSA DRAINS HAVE HAD MINIMAL OUTPUT, POTASSIUM WAS LOW AGAIN THIS MORNING, ADDRESSED THIS AT REPORT, RN WITH RELAY INFO TO MD, PLAN TO SBT TODAY, WILL CONTINUE TO MONITOR AND NOTIFY PROVIDER WITH ANY CHANGES IN PT STATUS.
--- NOTE | 2022-08-25 07:30 | NUR ---
REPORT RECIEVED. REMAINS ON VENT. ASSESSMENT DONE. WILL OPEN EYES OCC, WILL NOT TRACK WITH EYES. WILL NOT FOLLOW COMMANDS. DOES GRIMACE TO PAINFUL STIMULI. SIZE 7.[address] AT 24CMM AT LIP. VENT SETTING: TV-430, FIO2-40, PEEP-5, RR-16, TOTAL RR-28, ETCO-32, PIP-18. LUNGS CLEAR BUT DIMISHED. NO SECRETIONS TO SUCTION FROM ETT AT THIS TIME. ORAL CARE GIVEN. BOWEL SOUNDS REMAIN ABSENT. OSTOMY INTACT WITH SMALL AMOUNT OF GREEENISH LIQUID STOOL NOTED. G TUBE OPEN TO GRAVITY WITH GREENISH CONTENTS NOTED. ALYSA'S X 3 INTACT WITH MINIMAL DRAINAGE NOTED. ALEXANDER CATH PATENT. SCD'S ON. LEGS ELEVATED ON PILLOWS. HEEL PROTECTORS ON. REPOSITIONED
--- NOTE | 2022-08-25 08:00 | NUR ---
PATIENT RESTING IN BED, EYES CLOSED AND VENT IN PLACE. VITALS CHARTED. ALEXANDER AND GTUBE EMPTIED. BEDBATH GIVEN AND PATIENT REPOSITIONED ONTO RIGHT SIDE. ORAL CARE PROVIDED.
--- NOTE | 2022-08-25 09:30 | NUR ---
REPOSITIONED. NO CHANGES. TPN INFUSING. IV ABX INFUSING, TRIPLE LUMEN CVP PATENT TO LEFT SUBCLAVIN. DR. VARELA HAS BEEN IN TO SEE PATIENT. ORDERES RECEIVED.
--- NOTE | 2022-08-25 09:30 | NUR ---
UPdate from Rn. No change in status.
--- NOTE | 2022-08-25 09:30 | NUR ---
Update from RN. Pt has been extubated.
--- NOTE | 2022-08-25 12:00 | NUR ---
VENT SETTING REMAIN UNCHANGED. NO CHANGE IN NEURO STATUS.
--- NOTE | 2022-08-25 12:30 | NUR ---
GOOD U/O. VENT RR=16, TOLTAL RR=23. FAMILY MEMBERS HAVE BEEN IN ROOM. IV KCL INFUSING. NO CHANGES IN ASSESSMNET. ABD DRESSING, ALYSA DRESSING, G-TUBE DRESSING, ALLEVYN TO LEFT INNER THIGH CHANGED. SMALL AMOUNT OF PURLENT DISCHARGE NOTED FROM MID ABD INCISION AND AROUN G-TUBE.
--- NOTE | 2022-08-25 13:05 | NUR ---
PATIENT'S FAMILY FRIEND HAS ARRIVED WITH ANOTHER PERSON. UPDATE GIVEN. CRITICAL LABS REC'D OF LACTIC ACID OF 10.9, WBC OF 53.9, CA 6.2. CREATININE IS UP TO 3.8. VBG IS 6.936, 55.5 C02, 11.8 HC03. RT IN ROOM AND MAKING TITRATIONS TO VENT SETTINGS.
--- NOTE | 2022-08-25 14:00 | NUR ---
AFTER REPOSITIONING PATIENT TO LEFT SIDE O2 SAT HAVE BEEN OVERALL LOWER. PRIOR TO TURING TO LEFT SIDE O2 SAT 91-92, NOW 87-89.
--- NOTE | 2022-08-25 14:30 | NUR ---
AFTER SUCTIONING, O2 SAT REMAINS 88. FIO2 INCREASED TO 45, TO KEEP SAT >90.
--- NOTE | 2022-08-25 15:45 | NUR ---
Spoke with Dr. Ricardo. He feels pt is making slight improvement.
--- NOTE | 2022-08-25 18:52 | NUR ---
FAMILY MEMBER IN ROOM. NO FUTHER CHAMGES.
[2022-08-26] VITALS (14 sets, daily range): BP systolic 106–155; BP diastolic 55–80
--- NOTE | 2022-08-26 06:05 | NUR ---
NO SIGNIFICANT CHANGES OVER INFORMATION SERVICES MANAGER, PT HAD A LOT LESS ECTOPY THAN SHE HAS HAD THE PAST FEW NIGHTS, REMAINS IN SR WITH OCCASIONAL PVC'S, BP STABLE, PT DOES GRIMACE TO PAINFUL STIMULI BUT DOES NOT WITHDRAWAL, OPENS EYES TO SOUND BUT DOES NOT TRACK OR REACT TO THREAT, WILL CHECK LABS WHEN RESULTED AND NOTIFY MD IF NEEDED.
--- NOTE | 2022-08-26 08:17 | NUR ---
CARE OF PATIENT RESUMED BY THIS RN AFTER SHIFT REPORT. PT RESTING IN BED ON VENT WITH SETTINGS OF VC/AC 16, VT 430, FI02 45%, PEEP 5. RT IN ROOM PROVIDING SBT. PT REMAINS UNSEDATED AND ONLY GETS PRN MEDS FOR AGITATION/PAIN MANAGEMENT. PT OPENS EYES TO STIMULI IN ROOM. PT DOES WITHDRAW HANDS MINIMALLY AND GRIMACES TO PAINFUL STIMULI. PUPILS ARE EQUAL AND REACTIVE TO LIGHT. PT REMAINS UNRESTRAINED. ARMS AND LEGS ARE FLACCID TO GRAVITY. SCDs AND HEEL PROTECTORS REMAIN IN PLACE. BOWEL SOUNDS REMAIN ABSENT. ALYSA X3 IN PLACE - NEW FINDING OF BILE LIKE FLUID IN RIGHT SIDE ALYSA DRAIN #1. DR. ORLANDO TO BE NOTIFIED. POTASSIUM LOW AT 3.3 THIS AM - WILL ADDRESS WITH MDs. ALEXANDER IN PLACE AND DRAINING CLEAR YELLOW URINE. PT HAD ETT EXCHANGED, CENTRAL LINE LEFT SUBCLAVIAN, AND ALEXANDER EXCHANGED ON 08/19. TODAY IS DAY 14 ON VENTILATOR. PT NOTED TO BE MOVING RIGHT FINGERS AND HAND SPONTANEOUSLY, BUT NO OTHER NOTEABLE SPONTANEOUS MOVEMENT. EDEMA IS IMPROVED THROUGHOUT. TPN CONTINUES AT 84 ML/HR. BATH GIVEN PER CRIMINALIST TECHNICIAN. WILL CONTINUE TO MONITOR CLOSELY. PT FAILED SBT AND RT WORKING WITH DIFFERENT SETTINGS TO HELP STRENGTHEN PATIENT'S RESPIRATORY STATUS.
--- NOTE | 2022-08-26 09:15 | NUR ---
Pt remains on ventilator. Son at bedside. Son states he is discouraged as he feels mom is not progressing. He denies needs. No change in plan for CM.
--- NOTE | 2022-08-26 11:04 | NUR ---
PATIENT REPOSITIONED TO RIGHT SIDE. PT HAS TPN INFUSING, ABX, AND POTASSIUM. ALEXANDER DRAINING CLEAR YELLOW URINE. G TUBE DRAINING LIQUID GREEN MATERIAL. PVCs NOTED ON AND OFF. FI02 TURNED DOWN TO 40% DUE TO SP02 DOWN TO 97%.
--- NOTE | 2022-08-26 11:30 | NUR ---
DR. VARELA IN TO SEE PATIENT. PLAN OF CARE DISCUSSED WITH HIM. ORDERS ON EMAR FOR REPEATED DOSES OF POTASSIUM TO HELP REPLENISH THIS SINCE IT HAS BEEN LOW FOR SEVERAL DAYS, PLUS LASIX CONTINUES. NO OTHER CHANGES TO ORDERS FROM DR. VARELA AT THIS TIME.
--- NOTE | 2022-08-26 13:15 | NUR ---
ORAL CARE PROVIDED AND PATIENT TURNED TO SUPINE, WITH PILLOWS UNDER HIPS FOR COMFORT. PT OPENS EYES DURING ORAL CARE, BUT DOES NOT TRACK ANYTHING, ROLLS EYES TO THE BACK. PT REMAINS FLACCID IN ARMS AND LEGS, WITH MINIMAL NON PURPOSEFUL MOVEMENT NOTED IN RIGHT HAND.
--- NOTE | 2022-08-26 13:18 | NUR ---
DR. ORLANDO CALLED TO UPDATE ON FINDINGS OF GREEN BILE LIKE FLUID IN RIGHT ALYSA DRAIN. DR. ORLANDO TO SEE PATIENT SOON.
--- NOTE | 2022-08-26 13:48 | NUR ---
DR. ORLANDO IN TO SEE PATIENT. DISCUSSED WITH HIM THE GREEN BILE LIKE MATERIAL NOTED IN RIGHT ALYSA DRAIN. DISCUSSED WITH MD THE POSSIBILITY OF PATIENT NEEDING A TRACH. WILL WAIT FOR FURTHER ORDERS. CONTINUE TO MONITOR.
--- NOTE | 2022-08-26 15:36 | NUR ---
PATIENT REPOSITIONED TO LEFT SIDE AND POSITIONED WITH PILLOWS. APPEARS COMFORTABLE IN BED. LESS ECTOPY NOTED AFTER POTASSIUM HAS BEEN INFUSING. PT REMAINS ON 40% AND ALL OTHER VENT SETTINGS HAVEN'T CHANGED.
--- NOTE | 2022-08-26 16:30 | NUR ---
PATIENT'S PHILIPPE HERE AND INQUIRING ABOUT PLAN OF CARE. DISCUSSED GENERAL UPDATE WITH PT'S AND THEN DR. ORLANDO CALLED TO SEE IF HE WAS AVAILABLE TO GIVE HIM AN UPDATE. TEMP OF 100.[address] ORLANDO ON THE PHONE, AND MD SPEAKING WITH PHILIPPE AT THIS TIME AND GIVING UPDATE.
--- NOTE | 2022-08-26 17:55 | NUR ---
PATIENT'S SISTER, BROTHER IN LAW, AND BROTHER IN ROOM VISITING AT THIS TIME. PT NOTED TO BE SPONTANEOUSLY MOVING HER RIGHT HAND MORE OFTEN THIS AFTERNOON. PT'S FAMILY ALSO AWARE OF THIS. IV POTASSIUM INFUSING.
--- NOTE | 2022-08-26 19:45 | NUR ---
REPORT RECEIVED FROM RACHANA AMADO. IN TO CHECK ON PT, PT IS RESTING ON THE VENT, SETTINGS ARE FIO2 40%, TV 430, PEEP 5, RATE 16, PTS IS BREATHING AT 22 SYNCHRONOUS WITH VENT, HR 90 SINUS RHYTHM. SPO2 96%. PT OPENS EYES OCCASIONALLY AND IS MOVING RIGHT HAND ON HER OWN.
--- NOTE | 2022-08-26 22:00 | NUR ---
PT IS SUDDENLY LOOKING DISTRESS, HIGH PRESSURE ALARM ON VENT, EYES ARE OPEN, PT IS HITTING HAND ON BED RAIL, HR HIGHER NOW IN 110'S, RR UP TO 30S, THIS PERIOD LASTED APPROX A MINUTE, PRN FENTANYL GIVEN FOR PT COMFORT. RT CALLED TO COME ASSESS VENT SETTINGS. PT CALMS SOON AFTER AND RELAXES WITH HR AND RR BACK DOWN.
[2022-08-27] VITALS (10 sets, daily range): BP systolic 135–155; BP diastolic 67–79
--- NOTE | 2022-08-27 00:13 | NUR ---
IN TO DO ASSESSMENT, PT LOOKS MORE RESTFUL THAN SHE DID EARLIER IN THE SHIFT, EYES NOT OPENING WITH ACTIVITY, HR 100, SPO2 95% WITH SAME VENT SETTINGS. CONT TO MAKE GOOD URINE, OSTOMY HAS SMALL AMT BLACK OUTPUT. PT REMAINS AFEBRILE THIS SHIFT.
--- NOTE | 2022-08-27 02:00 | NUR ---
PT RESTING WITH EYES CLOSED, VENT SETTINGS REMAIN THE SAME, APPEARS RESTFUL AT THIS TIME, REPOSITIONED WITH PILLOWS.
--- NOTE | 2022-08-27 04:11 | NUR ---
PT RESTING, OPENS EYES TO VOICE AND BEGINS TO MOVE RIGHT HAND REPEATEDLY AGAINST BED RAIL, LOOKS SOMEWHAT AGITATED, WILL GIVE PRN FENTANYL. HR 110, TEMP NOTED-102.5, WILL INFORM MD. ASSESSMENT DONE, LABS DRAWN. SPO2 94%, RR 20 OVER THE VENT, FIO2 REMAINS 40%.
--- NOTE | 2022-08-27 05:38 | NUR ---
RECEIVED CALL FROM LAB THAT [facility] WAS <0.0, PRIMARY RN, PHILLY, JUANL UIS.
--- NOTE | 2022-08-27 10:00 | NUR ---
ORAL CARE COMPLETE. PT REPOSISTIONED TO LEFT SIDE. IV OFRIMEV ADMINISTERED EARLY PER DR. ORLANDO VERBAL ORDER.
--- NOTE | 2022-08-27 10:48 | NUR ---
Placed pt on SBT of Peep of 5 PS 7. Pt's Vt was 280 to 346; mean 7.2, Ve 11.5, RR increased within 30 seconds to 37 and NIF was -5.7. RSBI 106.
--- NOTE | 2022-08-27 12:00 | NUR ---
FAMILY AT BEDSIDE - UPDATED ON POC, EXPRESS DESIRE FOR CARE CONFERENCE TO RE-EVALUATE NEXT STEPS IN CARE. DR. ORLANDO UPDATED IN OR.
--- NOTE | 2022-08-27 13:34 | NUR ---
CONNECTED WITH PTS' -HE APPEARS MORE DISCOURAGED. KIND OF MUMBLES HIS RESPONSES. SEEMS RATHER BEWILDERED. GAVE ENCOURAGEMENT WILL FOLLOW
--- NOTE | 2022-08-27 14:40 | NUR ---
Requested by Dr. Ryan to accompany her to CCU. She was notified by the nurses, family have arrived and would like to withdraw care. Nurses have left a message for Dr. Ricardo. I texted and let him know family are requesting to withdraw care. Dr. Ricardo, Dr. Ryan, myself, and Lexy Ireland Rn met with pt's son, sister, friend, spouse, and family friend, Samir from the ER. Dr. Ricardo explained the progress this pt has made and his concerns for poor brain improvement. Family expressed pts desire to not live this way. All are in agreement they would like treatment stopped. Dr. Ricardo offered them time and even to wait until tomorrow. All feel they would like to proceed now or within the next 1/[address] Ricardo discussed pt may stop breathing shortly, live a few hours or day, or may actually recover. We will now wait to see what happens. Dr. Ryan discussed pt will be moved to the medical floor for family convenience, I discussed with family if pt cont. to live in the near future she will need to be placed into a facility and I will assist them with their options. All deny further needs or questions. Son asks to speak with me in private. He has questions how the body will be handled if she passes away. Discussed they just need to let us know which mortuary they would like to use. The hospital will call them when the family is ready for the body to be removed. The home will transport her there and set an appt to make the plans the family desire. We returned to the room and Andrea states he would like to use [facility]. I notified Bruna AMADO of this choice. Family deny any further questions.
--- NOTE | 2022-08-27 15:27 | NUR ---
PT EXTUBATED AND PLACED ON COMFORT CARE MEASURES PER WISHES COMMUNICATED AT CONFERENCE WITH FAMILY AND MD'S. PRN MORPHINE ADMINISTERED, PT REPOSISTIONED AND ROOM TIDIED FOR FAMILY.
--- NOTE | 2022-08-27 15:46 | NUR ---
NOTIFIED ABOUT INCREASING TEMP DESPITE IV OFRIMEV DOSE AT 0530
--- NOTE | 2022-08-27 15:49 | NUR ---
RN IN ROOM TO ADMINISTER ADDITIONAL DOSE MORPHINE FOR INCREASED RR. FAMILY AT BEDSIDE. DENY NEEDS OR QUESTIONS AT THIS TIME.
--- NOTE | 2022-08-27 16:32 | NUR ---
RN IN ROOM TO ADMINISTER MORPHINE AND ATIVAN - RR SUSTAINING IN 30'S, SPO2 82% ON ROOM AIR. PT APPEARS COMFORTABLE WITHOUT SECREATIONS TO SUCTION. FAMILY AT BEDSIDE, DENY NEEDS. COMFORT FOOD TRAY AT BEDSIDE.
--- NOTE | 2022-08-27 18:08 | NUR ---
I WAS CALLED IN AFTER PT WAS EXTUBATED. SON JANNET AND SISTER RACHNA WERE IN ROOM. THEY EXPRESSED GRATITUDE THAT PT WAS COMFORTABLE AND AN AWARENESS THAT SHE WAS DYING. GAVE PT PERMISSION TO GO. I PRAYED PRAYER OF COMMENDATION AND COMFORT. EXERCISED MINISTRY OF PRESENCE AND LISTENED FAMILY TALKED OF XAVIER. AND PT'S BROTHER JUAREZ WERE IN QUIET ROOM. LISTENED TALKED OF HIS LIFE WITH PT. HE EXPRESSED AWARENESS THAT RECOVERY IS UNLIKELY AND SADNESS AT THOUGHT OF NOT HAVING XAVIER.
--- NOTE | 2022-08-27 19:12 | NUR ---
PT REPOSISTIONED AND PROVIDED BED BATH, FRESH GOWN AND HAIR BRUSHED. SPO2 72%, RR 29. 2MG MORPHINE ADMINISTERED. CENTERAL LINE FLUSHED X3. ROOM TIDIED.
--- NOTE | 2022-08-27 21:24 | NUR ---
MD AWARE OF ALL FINDINGS. PATIENT IS ON COMFORT MEASURES
--- NOTE | 2022-08-28 00:07 | NUR ---
patient has sustained asystole. dr. pate contacted, dr. mata at bedside to pronounce. warehouse traffic supervisor contacting international relations teacher [facility]
== END 2022-08-27 23:49 | DRG 853 ==
LOC: ED 22:19 → CCU 08-12 01:12
PROVIDERS: ADMIT Surgery; ATTEND Surgery
PROC: 3E03329 Introduction of Other Anti-infective into Peripheral Vein, Percutaneous Approach (ICD-10-PCS; 2022-08-12)
PROC: 03HY32Z Insertion of Monitoring Device into Upper Artery, Percutaneous Approach (ICD-10-PCS; 2022-08-12)
PROC: 4A133B1 Monitoring of Arterial Pressure, Peripheral, Percutaneous Approach (ICD-10-PCS; 2022-08-12)
PROC: 4A133J1 Monitoring of Arterial Pulse, Peripheral, Percutaneous Approach (ICD-10-PCS; 2022-08-12)
PROC: 02HV33Z Insertion of Infusion Device into Superior Vena Cava, Percutaneous Approach (ICD-10-PCS; 2022-08-12)
PROC: 4A133R1 Monitoring of Arterial Saturation, Peripheral, Percutaneous Approach (ICD-10-PCS; 2022-08-12)
PROC: 3E033XZ Introduction of Vasopressor into Peripheral Vein, Percutaneous Approach (ICD-10-PCS; 2022-08-12)
PROC: 0BH17EZ Insertion of Endotracheal Airway into Trachea, Via Natural or Artificial Opening (ICD-10-PCS; 2022-08-12)
PROC: 5A1955Z Respiratory Ventilation, Greater than 96 Consecutive Hours (ICD-10-PCS; 2022-08-12)
PROC: 0DH63UZ Insertion of Feeding Device into Stomach, Percutaneous Approach (ICD-10-PCS; 2022-08-12)
PROC: 0D1N0Z4 Bypass Sigmoid Colon to Cutaneous, Open Approach (ICD-10-PCS; principal; 2022-08-12 02:00)
PROC: 0DTG0ZZ Resection of Left Large Intestine, Open Approach (ICD-10-PCS; 2022-08-12 02:00)
PROC: 0T9B70Z Drainage of Bladder with Drainage Device, Via Natural or Artificial Opening (ICD-10-PCS; 2022-08-12 02:00)
PROC: 0W9G0ZZ Drainage of Peritoneal Cavity, Open Approach (ICD-10-PCS; 2022-08-12 02:00)
PROC: 3E0436Z Introduction of Nutritional Substance into Central Vein, Percutaneous Approach (ICD-10-PCS; 2022-08-19)
PROC: 02PY03Z Removal of Infusion Device from Great Vessel, Open Approach (ICD-10-PCS; 2022-08-21)
PROC: 02HV33Z Insertion of Infusion Device into Superior Vena Cava, Percutaneous Approach (ICD-10-PCS; 2022-08-21)
PROC: 5A12012 Performance of Cardiac Output, Single, Manual (ICD-10-PCS; 2022-08-27)
DX: A41.51 Sepsis due to Escherichia coli [E. coli] (principal); G93.41 Metabolic encephalopathy; J96.01 Acute respiratory failure with hypoxia; K63.1 Perforation of intestine (nontraumatic); K65.0 Generalized (acute) peritonitis; N17.0 Acute kidney failure with tubular necrosis; K72.00 Acute and subacute hepatic failure without coma; J18.9 Pneumonia, unspecified organism; K56.609 Unspecified intestinal obstruction, unspecified as to partial versus complete obstruction; K81.0 Acute cholecystitis; E87.20 Acidosis, unspecified; E87.1 Hypo-osmolality and hyponatremia; D68.8 Other specified coagulation defects; B37.49 Other urogenital candidiasis; Z51.5 Encounter for palliative care; D69.59 Other secondary thrombocytopenia; D64.9 Anemia, unspecified; I48.0 Paroxysmal atrial fibrillation; L89.151 Pressure ulcer of sacral region, stage 1; R65.20 Severe sepsis without septic shock; I49.9 Cardiac arrhythmia, unspecified; E87.6 Hypokalemia; I10 Essential (primary) hypertension; M19.90 Unspecified osteoarthritis, unspecified site; Z90.89 Acquired absence of other organs; Z98.890 Other specified postprocedural states; Z88.1 Allergy status to other antibiotic agents; Z79.899 Other long term (current) drug therapy
CPT/HCPCS: 36415; 36430; 36600; 51702; 51798; 70450; 71045; 74018; 74176; 74177; 80048; 80053; 80061; 80076; 80162; 81001; 82140; 82803; 83036; 83605; 83690; 83735; 83880; 84100; 84134; 84484; 85025; 85060; 85610; 86140; 86850; 86900; 86901; 87040; 87070; 87075; 87077; 87088; 87186; 87205; 88304; 88307; 93005; 93010; 93306; 94003; 94640; 94799; 95816; 99285-25; J0131; J0171; J0295; J0330; J1160; J1170; J1265; J1450; J1815; J1940; J1956; J2001; J2020; J2060; J2250; J2270; J2370; J2405; J2543; J2704; J3010; J3243; J3430; J3475; J3480; J3490; J7030; J7042; J7060; J7070; J7121; P9035; P9047; Q9967